=== PATIENT | male | born 1965 | race Caucasian/White ===

== ENCOUNTER 2017-09-04 10:28 | Emergency (ER) | payer OTHER, SELFPAY | END 2017-09-04 15:59 | disposition home or self-care (01) | PROVIDERS: Emergency Provider Emergency Medicine; Family Provider Family Medicine; Visit Provider Emergency Medicine | DX: R00.9 Unspecified abnormalities of heart beat (principal); T73.3XXA Exhaustion due to excessive exertion, initial encounter; Z95.810 Presence of automatic (implantable) cardiac defibrillator; Y93.79 Activity, other specified sports and athletics | CPT/HCPCS: 71020; 80053; 82550; 82553; 84484; 85025; 93005; 93041; 99284 ==

== ENCOUNTER → 2017-10-18 08:36 | Outpatient (CLI) | payer OTHER, MEDICAID, SELFPAY ==
--- NOTE | 2017-10-18 | CA_ITS ---
PROCEDURE: 2-D M-mode and color Doppler study INDICATIONS FOR THE TEST: Chest pain COPD Heart Murmur+ Tobacco Smokingex Palpitations+ Fatigue Syncope Edema Hypertension+Diabetes Mellitus Rheumatic Fever SOB DAMIAN+Obesity+Hyperlipidemia Family History HD Additional History pacer/defib, dizziness, hx of 20-25% EF 07/2017, Definity contrast utilized PATIENT INFORMATION HEIGHT: 71 WEIGHT: 270 GENDER: Male B/P: 156/98 2-D/M-MODE INTERPRETATION: 2-D MEASUREMENTS OBSERVED VALUES IN CMS Right Ventricular Dimension (RVDd) 2.1 Interventricular Septum (Thickness)(IVsd) 1.0 Left Ventricular Internal Dimensions(LVIDd) 6.1 Left Ventricular Posterior Wall (Thickness)(LVPWd) 1.0 Aortic Root 3.0 Aortic Cusp Separation 2.0 Left Atrial Dimensions (LAD) 3.7 2D 1. Left atrium is mildly enlarged, left ventricle is mildly dilated, there is severely reduced left ventricular systolic function, visually estimated ejection fraction is 25%, there is marked hypo to akinesis involving the mid to distal septum, anterior, anteroapical and apical wall. 2. The right atrium and right ventricle are relatively normal size and function, there is a catheter noted in the right ventricle which is likely an ICD lead. 3. The aortic valve is minimally thickened and fibrosed. 4. The mitral and tricuspid valve leaflets are minimally thickened. 5. The pulmonic valve is poorly visualized. 6. No significant pericardial effusion noted. DOPPLER INTERROGATION: Doppler interrogation of the aortic, mitral and tricuspid valvular presence of mild mitral and tricuspid regurgitation, tricuspid and enteric velocity insufficient for calculation of the right ventricular systolic pressure, diastolic parameters are inconclusive. CONCLUSION: 1. Mildly enlarged left atrium, mildly dilated left ventricle, severely reduced left ventricular systolic function, visually estimated ejection fraction of 25% with multiple segmental wall motion abnormality described above, Definity contrast ordered to delineate surfaces. 2. Mild mitral and tricuspid regurgitation 3. No significant pericardial effusion noted.
== END ==
PROVIDERS: PCP Family Medicine; Visit Provider Internal Medicine
DX: I25.10 Atherosclerotic heart disease of native coronary artery without angina pectoris (principal); I10 Essential (primary) hypertension; E78.5 Hyperlipidemia, unspecified; G47.33 Obstructive sleep apnea (adult) (pediatric); Z95.810 Presence of automatic (implantable) cardiac defibrillator
CPT/HCPCS: 93306; Q9957

== ENCOUNTER 2017-10-19 11:16 | Emergency (ER) | payer OTHER, MEDICAID, SELFPAY ==
[2017-10-19 11:17] VITALS: BP 146/85; PULSE 61; RESP 18; TEMP 36.7; O2SAT 99; BMI 37.6
--- NOTE | 2017-10-19 11:22 | XR_ITS ---
XR chest 2V HISTORY: ITS.REASON: chest pain ORDERING PHYSICIAN: Eleno Medina MD PATIENT AGE: 52 years COMPARISON: 09/04/2017 FINDINGS: The cardiomediastinal silhouette and pulmonary vascularity are within normal limits. Cardiac pacemaker device is present from left subclavian approach The lungs are clear without infiltrates, suspicious nodules, or pleural effusions. No acute bony abnormalities. IMPRESSION: No change with no acute finding
[2017-10-19 11:35] LABS: Basophils # 0.1 K/mm3 (0-0.2); Basophils % 0.6 % (0.1-2.0); Eosinophils # 0.2 K/mm3 (0.0-0.4); Eosinophils % 1.8 % (0.1-12.0); Hematocrit 45.1 % (42.0-52.0); Hemoglobin 15.1 g/dL (14.1-18.0); Lymphocytes # 3.2 K/mm3 (0.7-4.5); Lymphocytes % 39.6 K/mm3 (10-50); Mean Corpuscular HGB Conc 33.5 g/dL (31.8-35.4); Mean Corpuscular Hemoglobin 30.6 pg (27.0-31.2); Mean Corpuscular Volume 91.3 fl (80-94); Mean Platelet Volume 8.3 fl (7.4-10.4); Monocytes # 0.4 K/mm3 (0.1-1.0); Monocytes % 4.4 % (1.7-9.3); Neutrophils # 4.3 K/mm3 (1.8-7.8); Neutrophils % 53.6 % (37.0-80.0); Platelet Count 213 K/mm3 (142-424); Red Blood Count 4.93 M/mm3 (4.60-6.20); Red Cell Distribution Width 12.6 % (11.5-17.5); White Blood Count 8.1 K/mm3 (4.8-10.8)
--- NOTE | 2017-10-19 11:52 | [facility].EDCP ---
ED Disposition Clinical Impression: CAD (coronary artery disease), Atypical chest pain, Numbness, Encephalomalacia on imaging study Disposition: Home, Self-Care Condition on Discharge: Good Additional Instructions: As I discussed with Dr Byers and later on the patient: 1- Go immediately to Dr Byers's office for re evalution. 2- continue your current medication regimen especailly the asa. 3- follow up with Dr Turner as scheduled. 4- return if needed. Referrals: Zainab Byers MD [Primary Care Provider] - - Critical Care Critical Care Time: No Attestation: On 10/19/17, the high probability of a clinically significant, sudden or life threatening deterioration of the following system(s) required my full and direct attention, intervention and personal management. The time I documented below is in addition to time spent performing reported procedures but includes the following listed in this critical care notation. Medical Decision Making - Medical Records Medical records reviewed: Yes: I reviewed the patient's medical records. Vital Signs: 10/19/17 11:17 10/19/17 12:47 Temperature 98.1 F Temperature Source Oral Pulse Rate [Right Brachial] 61 106 H Respiratory Rate 18 18 Blood Pressure [Right Arm] 146/85 126/85 Blood Pressure Mean [Right Arm] 105 98 Blood Pressure Source [Right Arm] Automatic Cuff Automatic Cuff Blood Pressure Position [Right Arm] Sitting Sitting 02 Sat by Pulse Oximetry 99 96 Oxygen Delivery Method Room Air Room Air - Lab Data Lab Results 10/19/17 11:25: WBC 8.1, RBC 4.93, Hgb 15.1, Hct 45.1, MCV 91.3, MCH 30.6, MCHC 33.5, RDW 12.6, Plt Count 213, MPV 8.3, Neut % (Auto) 53.6, Lymph % (Auto) 39.6, [place] % (Auto) 4.4, Eos % (Auto) 1.8, Baso % (Auto) 0.6, Neut # (Auto) 4.3, Lymph # (Auto) 3.2, [place] # (Auto) 0.4, Eos # (Auto) 0.2, Baso # (Auto) 0.1 10/19/17 11:25: Sodium 140, Potassium 4.0, Chloride 103, Carbon Dioxide 29, Anion Gap 12.0, BUN 9, Creatinine 0.92, Estimated Creat Clear 166, Estimated GFR 87, Est GFR ( Amer) 105, Glucose 114 H, Calcium 8.9, Total Bilirubin 0.5, AST 10 L, ALT 26, Alkaline Phosphatase 64, Total Creatine Kinase 108, CK-MB (CK-2) 0.8, CK-MB (CK-2) Rel Index 0.7, Troponin I < 0.02, Total Protein 7.2, Albumin 3.9, Globulin 3.3 H, Albumin/Globulin Ratio 1.2 10/19/17 11:25: D-Dimer < 100 10/19/17 11:25: B-Natriuretic Peptide 38 10/19/17 11:51: Specimen Source R radial, O2 % 2lpm, ABG pH 7.42, ABG pCO2 40.0, ABG pO2 77.3 L, ABG HCO3 25.4, ABG Total CO2 26.6, ABG O2 Saturation 96, ABG Base Excess 1.0, Red Test Acceptable 10/19/17 13:15: Troponin I < 0.02 Result diagrams: 10/19/17 11:25 10/19/17 11:25 - Radiology Data #1 Image(s): Chest Image Reviewed: Yes I have reviewed radiologist's interpretation Preliminary Findings: Normal/NAD MPRESSION: No change with no acute finding - ECG Data Tracing #1 Paced rhythm 60/minutes. ECG initial impression date: 10/19/17 ECG initial impression time: 11:55 - Marcelo Inquiry Pt receiving controlled substance: No Marcelo was queried for this patient: No Medical Decision Making Narrative: After reviewing the patient EKG labs and chest x-ray report. The patient was ruled out for [place] by 2 negative troponins, ruled out for PE by negative dimer. His CT report and gave him a copy to follow-up with Dr. byers attempted to contact Dr. Turner who was scrubbed in. The patient reported that the numbness feeling is going away, his neurological exam remained unchanged, I called his primary care physician Dr. byers who advised that the patient to be discharged and to go immediately to the office for evaluation by him. This with the patient his and his family and they were fine with this plan. He is to continue his daily aspirin. I informed the patient to return if the sx return or if needed he he verbalized understanding with the DC plan. Chest Pain HPI - General Chief Complaint:
--- NOTE | 2017-10-19 11:55 | ED_ITS ---
ED Disposition Clinical Impression: CAD (coronary artery disease), Atypical chest pain, Numbness, Encephalomalacia on imaging study Disposition: Home, Self-Care Condition on Discharge: Good Additional Instructions: As I discussed with Dr Byers and later on the patient: 1- Go immediately to Dr Byers's office for re evalution. 2- continue your current medication regimen especailly the asa. 3- follow up with Dr Turner as scheduled. 4- return if needed. Referrals: Zainab Byers MD [Primary Care Provider] - - Critical Care Critical Care Time: No Attestation: On 10/19/17, the high probability of a clinically significant, sudden or life threatening deterioration of the following system(s) required my full and direct attention, intervention and personal management. The time I documented below is in addition to time spent performing reported procedures but includes the following listed in this critical care notation. Medical Decision Making - Medical Records Medical records reviewed: Yes: I reviewed the patient's medical records. Vital Signs: 10/19/17 11:17 10/19/17 12:47 Temperature 98.1 F Temperature Source Oral Pulse Rate [Right Brachial] 61 106 H Respiratory Rate 18 18 Blood Pressure [Right Arm] 146/85 126/85 Blood Pressure Mean [Right Arm] 105 98 Blood Pressure Source [Right Arm] Automatic Cuff Automatic Cuff Blood Pressure Position [Right Arm] Sitting Sitting 02 Sat by Pulse Oximetry 99 96 Oxygen Delivery Method Room Air Room Air - Lab Data Lab Results 10/19/17 11:25: WBC 8.1, RBC 4.93, Hgb 15.1, Hct 45.1, MCV 91.3, MCH 30.6, MCHC 33.5, RDW 12.6, Plt Count 213, MPV 8.3, Neut % (Auto) 53.6, Lymph % (Auto) 39.6 , Hall % (Auto) 4.4, Eos % (Auto) 1.8, Baso % (Auto) 0.6, Neut # (Auto) 4.3, Lymph # (Auto) 3.2, [place] # (Auto) 0.4, Eos # (Auto) 0.2, Baso # (Auto) 0.1 10/19/17 11:25: Sodium 140, Potassium 4.0, Chloride 103, Carbon Dioxide 29, Anion Gap 12.0, BUN 9, Creatinine 0.92, Estimated Creat Clear 166, Estimated GFR 87, Est GFR ( Amer) 105, Glucose 114 H, Calcium 8.9, Total Bilirubin 0.5, AST 10 L, ALT 26, Alkaline Phosphatase 64, Total Creatine Kinase 108, CK- MB (CK-2) 0.8, CK-MB (CK-2) Rel Index 0.7, Troponin I < 0.02, Total Protein 7.2 , Albumin 3.9, Globulin 3.3 H, Albumin/Globulin Ratio 1.2 10/19/17 11:25: D-Dimer < 100 10/19/17 11:25: B-Natriuretic Peptide 38 10/19/17 11:51: Specimen Source R radial, O2 % 2lpm, ABG pH 7.42, ABG pCO2 40.0 , ABG pO2 77.3 L, ABG HCO3 25.4, ABG Total CO2 26.6, ABG O2 Saturation 96, ABG Base Excess 1.0, Red Test Acceptable 10/19/17 13:15: Troponin I < 0.02 Result diagrams: 10/19/17 11:25 10/19/17 11:25 - Radiology Data #1 Image(s): Chest Image Reviewed: Yes I have reviewed radiologist's interpretation Preliminary Findings: Normal/NAD MPRESSION: No change with no acute finding - ECG Data Tracing #1 Paced rhythm 60/minutes. ECG initial impression date: 10/19/17 ECG initial impression time: 11:55 - Marcelo Inquiry Pt receiving controlled substance: No Marcelo was queried for this patient: No Medical Decision Making Narrative: After reviewing the patient EKG labs and chest x-ray report. The patient was ruled out for [place] by 2 negative troponins, ruled out for PE by negative dimer. His CT report and gave him a copy to follow-up with Dr. byers attempted to contact Dr. Turner who was scrubbed in. The patient reported derek
[2017-10-19 12:02] LABS: Alanine Aminotransferase 26 U/L (12-78); Albumin Level 3.9 gm/dL (3.4-5.0); Albumin/Globulin Ratio 1.2 (1.1-1.8); Alkaline Phosphatase 64 U/L (46-116); Aspartate Amino Transferase 10 U/L (15-37); Bilirubin,Total 0.5 mg/dL (0.2-1.0); Blood Urea Nitrogen 9 mg/dL (7-18); CKMB Relative Index 0.7 U/L (0-4.0); Calcium 8.9 mg/dL (8.5-10.1); Carbon Dioxide 29 mmol/L (21.0-32.0); Chloride 103 mmol/L (98-107); Creatine Kinase 108 U/L (39-308); Creatine Kinase MB 0.8 mg/ml (0.0-3.6); Creatinine Clearance Estimated 166 mL/min (0-300); Creatinine,Serum 0.92 mg/dL (0.70-1.30); Estimated Glomerular Filt Rate 87 ml/min (>60); GFR (African American) 105 ML/MIN (>60); Globulin 3.3 gm/dl (1.3-3.2); Glucose 114 mg/dL (74-106); Sodium 140 mmol/L (136-145); Total Protein,Serum 7.2 gm/dL (6.4-8.2); Troponin I < 0.02 ng/ml (0.00-0.06)
[2017-10-19 12:25] LABS: ABG HCO3 25.4 mmhg (22.0-26.0); ABG Oxygen Saturation 96 % (90-100); ABG PH 7.42 mmol/L (7.35-7.45); ABG PO2 77.3 mmhg (80-100); ABG TCO2 26.6 mmhg (23-27)
[2017-10-19 12:26] LABS: Allen's Test ACCEPTABLE; Oxygen 2LPM %; Source R RADIAL
[2017-10-19 12:47] VITALS: BP 126/85; PULSE 106; RESP 18; O2SAT 96
--- NOTE | 2017-10-19 12:58 | CT_ITS ---
CT head/brain wo con HISTORY: Dizziness and left-sided numbness ITS.REASON: left sided numbness. ORDERING PHYSICIAN: Eleno Medina MD PATIENT AGE: 52 years COMPARISON: None TECHNIQUE: Axial images obtained without contrast. Brain and bone windows reviewed. FINDINGS: No midline shift, mass effect, intracranial hemorrhage, hydrocephalus, or extra-axial fluid collection is evident. There is decreased attenuation in the left occipital lobe consistent with encephalomalacia changes. The calvarium has an unremarkable appearance. Small amount fluid is present in the left mastoid sinus. No sinus air-fluid levels.. IMPRESSION: 1. No acute finding. 2. Encephalomalacia change in the left occipital lobe.
[2017-10-19 12:59] LABS: D-Dimer < 100 (0-400)
[2017-10-19 13:34] LABS: Troponin I < 0.02 ng/ml (0.00-0.06)
[2017-10-19 15:05] VITALS: BP 109/66; PULSE 60; RESP 20; TEMP 36.7; O2SAT 97
== END 2017-10-19 15:05 | disposition home or self-care (01) ==
PROVIDERS: Emergency Provider Emergency Medicine; Family Provider Family Medicine; PCP Family Medicine
DX: R07.9 Chest pain, unspecified (principal); I25.10 Atherosclerotic heart disease of native coronary artery without angina pectoris; R20.0 Anesthesia of skin; E78.5 Hyperlipidemia, unspecified; I10 Essential (primary) hypertension; Z87.891 Personal history of nicotine dependence
CPT/HCPCS: 70450; 71046; 80053; 82550; 82553; 82803; 83880; 84484; 85025; 85378; 93005; 93041; 99284

== ENCOUNTER → 2017-12-25 08:11 | Outpatient (CLI) | payer OTHER, MEDICAID, SELFPAY ==
[2017-12-25 08:51] LABS: Basophils % 0.7 % (0.1-2.0); Eosinophils # 0.2 K/mm3 (0.0-0.4); Eosinophils % 2.6 % (0.1-12.0); Hematocrit 44.3 % (42.0-52.0); Lymphocytes % 31.9 K/mm3 (10-50); Mean Corpuscular HGB Conc 33.8 g/dL (31.8-35.4); Mean Corpuscular Hemoglobin 31.2 pg (27.0-31.2); Mean Corpuscular Volume 92.5 fl (80-94); Monocytes # 0.3 K/mm3 (0.1-1.0); Monocytes % 4.3 % (1.7-9.3); Neutrophils # 3.7 K/mm3 (1.8-7.8); Neutrophils % 60.4 % (37.0-80.0); Platelet Count 222 K/mm3 (142-424); Red Blood Count 4.79 M/mm3 (4.60-6.20); Red Cell Distribution Width 12.9 % (11.5-17.5); White Blood Count 6.2 K/mm3 (4.8-10.8)
[2017-12-25 09:52] LABS: Alanine Aminotransferase 28 U/L (12-78); Albumin Level 3.7 gm/dL (3.4-5.0); Albumin/Globulin Ratio 1.2 (1.1-1.8); Alkaline Phosphatase 62 U/L (46-116); Anion Gap 9.5 mEq/L (5-15); Aspartate Amino Transferase 16 U/L (15-37); Bilirubin,Total 0.4 mg/dL (0.2-1.0); Blood Urea Nitrogen 9 mg/dL (7-18); Calcium 9.4 mg/dL (8.5-10.1); Carbon Dioxide 31 mmol/L (21.0-32.0); Chloride 107 mmol/L (98-107); Chol/HDL Ratio 6.4 (1-3.5); Cholesterol 274 mg/dL (140-200); Creatinine,Serum 0.94 mg/dL (0.70-1.30); Estimated Glomerular Filt Rate 85 ml/min (>60); GFR (African American) 103 ML/MIN (>60); Glucose 120 mg/dL (74-106); HDL Cholesterol 43 mg/dL (27-67); LDL Cholesterol 192 mg/dL (0-130); Potassium 4.5 mmoL/L (3.5-5.1); Prostate Specific Ag Screen 1.1 ng/mL (0.0-4.0); Sodium 143 mmol/L (136-145); Thyroid Stimulating Hormone 4.16 uIU/ml (0.358-3.740); Total Protein,Serum 6.7 gm/dL (6.4-8.2); Triglycerides 194 mg/dL (30-200); VLDL Cholesterol 39 mg/dL (0-40)
[2017-12-28 06:03] LABS: Vitamin D 25 Hydroxy 13.6 ng/mL (30.0-100.0)
[2017-12-28 06:04] LABS: Vitamin B12 354 pg/mL (232-1245)
== END ==
PROVIDERS: PCP Physician Assistant; Visit Provider Physician Assistant
DX: R20.9 Unspecified disturbances of skin sensation (principal); R63.5 Abnormal weight gain; E78.2 Mixed hyperlipidemia; E55.9 Vitamin D deficiency, unspecified; Z12.5 Encounter for screening for malignant neoplasm of prostate
CPT/HCPCS: 36415; 80053; 80061; 82607; 82652; 84443; 85025; G0103

== ENCOUNTER → 2018-01-10 08:27 | Outpatient (POV) | payer OTHER, MEDICAID, SELFPAY | PROVIDERS: Visit Provider Nurse Practitioner Acute Care | DX: Z00.00 Encounter for general adult medical examination without abnormal findings (principal) ==

== ENCOUNTER → 2018-03-05 07:52 | Outpatient (CLI) | payer OTHER, MEDICAID, SELFPAY ==
[2018-03-05 09:09] LABS: Hemoglobin A1C 5.4 % (0.0-7.0)
[2018-03-05 09:54] LABS: Chol/HDL Ratio 4.6 (1-3.5); Cholesterol 187 mg/dL (140-200); Free T4 (Free Thyroxine) 1.02 ng/dl (0.76-1.46); HDL Cholesterol 41 mg/dL (27-67); LDL Cholesterol 123 mg/dL (0-130); Thyroid Stimulating Hormone 2.71 uIU/ml (0.358-3.740); Triglycerides 117 mg/dL (30-200); VLDL Cholesterol 23 mg/dL (0-40)
[2018-03-06 18:30] LABS: Vitamin D 25 Hydroxy 34.8 ng/mL (30.0-100.0)
== END ==
PROVIDERS: Visit Provider Physician Assistant
DX: R73.01 Impaired fasting glucose (principal); E03.9 Hypothyroidism, unspecified; E55.9 Vitamin D deficiency, unspecified; E78.2 Mixed hyperlipidemia
CPT/HCPCS: 36415; 80061; 82652; 83036; 84439; 84443

== ENCOUNTER → 2018-09-20 08:55 | Outpatient (CLI) | payer OTHER, MEDICAID, SELFPAY | PROVIDERS: PCP Family Medicine; Visit Provider Internal Medicine Cardiovascular Disease | DX: E78.5 Hyperlipidemia, unspecified (principal); I10 Essential (primary) hypertension; I25.10 Atherosclerotic heart disease of native coronary artery without angina pectoris; I25.5 Ischemic cardiomyopathy; Z95.810 Presence of automatic (implantable) cardiac defibrillator | CPT/HCPCS: 93017 ==

== ENCOUNTER 2019-09-03 21:35 | Observation (INO) ==
--- NOTE | 2019-09-03 21:47 | Emergency Department Note ---
ED Disposition Clinical Impression: Arrhythmia Disposition: Admitted as Observation Condition on Discharge: Good - Critical Care Critical Care Time: No Attestation: On , the high probability of a clinically significant, sudden or life threatening deterioration of the following system(s) required my full and direct attention, intervention and personal management. The time I documented below is in addition to time spent performing reported procedures but includes the following listed in this critical care notation. Medical Decision Making - Marcelo Inquiry Pt receiving controlled substance: No Vital Signs: 09/03/19 21:43 09/04/19 00:40 09/04/19 01:14 Temperature 98.3 F 98.3 F Temperature Source Oral Oral Pulse Rate 88 Pulse Rate [Right] 110 H 93 H Respiratory Rate 18 18 16 Blood Pressure 112/72 Blood Pressure [Right Arm] 134/80 109/71 L Blood Pressure Mean [Right Arm] 98 83 Blood Pressure Source [Right Arm] Automatic Cuff Automatic Cuff Blood Pressure Position [Right Arm] Sitting Sitting 02 Sat by Pulse Oximetry 99 97 Oxygen Delivery Method Room Air Room Air Room Air - Lab Data Lab Results 09/03/19 22:35: WBC 8.2, RBC 4.83, Hgb 14.5, Hct 45.1, MCV 93.3, MCH 29.9, MCHC 32.0, RDW 14.0, Plt Count 225, MPV 8.2, Neut % (Auto) 58.3, Lymph % (Auto) 33.0, [place] % (Auto) 4.8, Eos % (Auto) 2.9, Baso % (Auto) 1.0, Neut # (Auto) 4.8, Lymph # (Auto) 2.7, [place] # (Auto) 0.4, Eos # (Auto) 0.2, Baso # (Auto) 0.1 09/03/19 22:35: Sodium 143, Potassium 3.4 L, Chloride 106, Carbon Dioxide 26, Anion Gap 14.4, BUN 10, Creatinine 1.03, Estimated Creat Clear 151, Estimated GFR 76, Est GFR ( Amer) 92, Glucose 161 H, Calcium 8.7, Troponin I < 0.02 09/03/19 22:35: D-Dimer < 100 09/03/19 22:35: TSH 6.18 H D, Free T4 Index 3.5 L, Thyroxine (T4) 10.5, T3 Uptake 33 Result diagrams: 09/03/19 22:35 09/03/19 22:35 Orders (Tests/Meds): ED MEDICATIONS Generic Name Dose Route Start Last Admin Trade Name Freq PRN Reason Stop Dose Admin Aspirin 81 mg 09/04/19 09:00 Aspirin 81mg Enteric Coated Tablet PO 10/04/19 08:59 DAILY RICK Atorvastatin Calcium 40 mg 09/04/19 09:00 Lipitor 40mg Tablet PO 10/04/19 08:59 DAILY RICK Carvedilol 3.125 mg 09/04/19 09:00 Coreg 3.125mg Tablet PO 10/04/19 08:59 BID RICK Furosemide 40 mg 09/04/19 09:00 Lasix 40mg Tablet PO 10/04/19 08:59 DAILY RICK Levothyroxine Sodium 25,000 mcg 09/04/19 09:00 Synthroid 25mcg (0.025mg) Tablet PO 10/04/19 08:59 DAILY RICK Potassium Chloride 10 meq 09/04/19 09:00 Klor-Con 10meq Tablet PO 10/04/19 08:59 DAILY RICK Sacubitril/Valsartan 1 each 09/04/19 09:00 Entresto 24/26mg Tablet PO 10/04/19 08:59 BID RICK Discontinued Medications Generic Name Dose Route Start Last Admin Trade Name Freq PRN Reason Stop Dose Admin Non-Formulary Medication 1 tab 09/04/19 09:00 Sacubitril/Valsartan [Entresto 49 Mg-51 Mg Tablet] PO 10/04/19 08:59 BID RICK ORDERS Category Date Time Status Consult to Physician [CONS] Routine Cons 09/04/19 01:25 Ordered Chest XR 2 view (NOT portable) [XR chest 2V] Stat Exams 09/03/19 21:50 Taken - Radiology Data #1 Image(s): Chest Image Reviewed: Yes I reviewed the patient's radiology image Preliminary Findings: Normal/NAD - ECG Data Tracing #1 EKG interpreted by Frederick Mejia MD: Rhythm: sinus Rate: 99 [place]: Left Ectopy: none Conduction: normal ST Segment Changes: none T Wave Changes: none Q Waves: Anterior septal Poor R wave progression Prior electrocardiagrams reviewed. No change from prior tracings. - Physician Consults Physician Consulted: Yue Time: 23:40 Reason -: Cardiology Eval/Care Comment/Response: Feels that most likely the patient had a ventricular arrhythmia that he was paced out of. Recommends admit for observation overnight on telemetry and they will get device interrogated in the morning Additional Consult: Rita General Adult HPI - General Stated complaint: chest/head pain Time Seen by Provider: 09/03/19 21:48 - History of Present Illness HPI narrative: States that about 40 minutes ago he was sitting at rest when he felt a "boom" in his chest that went up his neck and into his head. Only lasted a second. He t hen felt his heart race for about 3 to 4 minutes. Associated with shortness of breath. Symptoms resolved, but then on the way here he also got short of breath. Has not had the symptoms before in the past. He has an AICD and has previously had discharges, and this did not feel like an AICD discharge. No leg pain or swelling. No recent hospitalizations or surgeries. He is not currently having any discomfort or palpitations. - Related Data Home Medications Medication Instructions Recorded Confirmed aspirin 81 mg tablet,delayed 81 mg PO QDAY 09/07/17 09/03/19 release Atorvastatin Calcium [Atorvastatin 40 mg PO DAILY 01/11/18 09/03/19 40mg Tab] Levothyroxine Sodium 25 mg PO DAILY 01/11/18 09/03/19 [Levothyroxine 25mcg (0.025mg) Tab] cholecalciferol (vitamin D3) 125 5,000 unit PO DAILY 06/17/18 09/03/19 mcg (5,000 unit) capsule sacubitril 49 mg-valsartan 51 mg 1 tab PO BID 03/17/19 09/03/19 tablet Furosemide [Lasix 40mg tab] 40 mg PO DAILY 09/03/19 09/03/19 Potassium Chloride 10 meq PO DAILY 09/03/19 09/03/19 Allergies Allergy/AdvReac Type Severity Reaction Status Date / Time codeine [CODEINE] Allergy Intermediate Verified 03/17/19 10:15 [facility] History - Hepatitis A Screen Attestation statement:: This patient has been screened for Hepatitis A risk factors. I have reviewed the patient's past medical history: Yes Medical History: Reports:: Coronary Artery Disease, Hyperlipidemia, Hypertension, Myocardial Infarction Denies:: Cancer, Diabetes Mellitus Type 1, Diabetes Mellitus Type 2, Internal Pacemaker, Lung Disease, MRSA, Seizures Other Medical History: Denies: Blood Transfusion Reaction Comment: Pacemaker AICD Laterality Cases: Left: Arthroscopy Knee Other Surgeries: Yes: Cardiac Catheterization, Colonoscopy, Hernia Repair, Oth er. No: Pacemaker Amputation: No Fractures: No - Social History Smoking Status: Former smoker Alcohol Intake: current Alcohol Intake Frequency:: holidays/special occasions only Substance Use Type: denies use Occupational Status: employed Family Hx:: Coronary Artery Disease, Heart Attack, Hypertension, Hyperlipidemia ROS Obtained: Yes All systems reviewed & no additional complaints - Constitutional Constitutional: Denies fever(s) - Cardiovascular Cardiovascular: Reports chest pain, Reports rapid heart rate - Respiratory Respiratory: No cough, Yes dyspnea, No coughing up blood - Gastrointestinal Gastrointestingal: Denies: abdominal pain, vomiting Physical Exam - General General appearance: alert, in no apparent distress - Head Head exam: atraumatic, normocephalic - Eye Eye exam: Present: normal appearance, EOMI - ENT ENT exam: Present: mucous membranes moist - Neck Neck exam: Present: normal inspection, trachea midline - Chest Chest inspection: Present: normal inspection, symmetric chest wall rise - Respiratory Respiratory exam: Present: normal lung sounds bilaterally. Absent: respiratory distress - Cardiovascular Cardiovascular exam: Present: regular rate, normal rhythm, normal heart sounds - Abdominal Exam Abdominal exam: Present: soft, normal bowel sounds. Absent: distention, tenderness - Extremities Exam Extremities exam: Present: normal inspection, other (Normal peripheral pulses). Absent: tenderness, pedal edema - Neurological Exam Neurological exam: Present: alert, oriented X3 - Psychiatric Psychiatric exam: Present: normal affect, normal mood - Skin Skin exam: Present: warm, dry
[2019-09-03 22:49] LABS: Basophils # 0.1 K/mm3 (0-0.2); Eosinophils # 0.2 K/mm3 (0.0-0.4); Eosinophils % 2.9 % (0.1-12.0); Hematocrit 45.1 % (42.0-52.0); Hemoglobin 14.5 g/dL (14.1-18.0); Lymphocytes # 2.7 K/mm3 (0.7-4.5); Mean Corpuscular Volume 93.3 fl (80-94); Mean Platelet Volume 8.2 fl (7.4-10.4); Monocytes # 0.4 K/mm3 (0.1-1.0); Monocytes % 4.8 % (1.7-9.3); Neutrophils # 4.8 K/mm3 (1.8-7.8); Neutrophils % 58.3 % (37.0-80.0); Platelet Count 225 K/mm3 (142-424); Red Blood Count 4.83 M/mm3 (4.60-6.20); White Blood Count 8.2 K/mm3 (4.8-10.8)
[2019-09-03 23:02] LABS: Anion Gap 14.4 mEq/L (5-15); Blood Urea Nitrogen 10 mg/dL (7-18); Calcium 8.7 mg/dL (8.5-10.1); Carbon Dioxide 26 mmol/L (21.0-32.0); Chloride 106 mmol/L (98-107); Glucose 161 mg/dL (74-106); Sodium 143 mmol/L (136-145)
[2019-09-04 00:09] LABS: Free Thyroxine Index 3.5 ug/dL (5.93-13.13); Thyroid Stimulating Hormone 6.18 uIU/ml (0.358-3.740)
--- NOTE | 2019-09-04 07:25 | Consult Report ---
History of Present Illness Consult date: 09/04/19 Requesting physician: Ji Salinas Consult reason: chest pain Chief complaint: chest pain Additional Medical History:: 1. Ischemic cardiomyopathy A. Left heart catheterization, 2016, medical therapy recommended. Proximal LAD occlusion with apical hypokinesis and EF of 25%. B. Routine Cesar protocol stress test, 09/2018, no significant arrhythmias, patient exercised for 6 minutes but did not achieve target heart rate due to medical therapy. No evidence of ischemia. 2. [employer] AICD implanted July 2017 3. Hypertension A. Echo, 10/2017, 1. Left atrium is mildly enlarged, left ventricle is mildly dilated, there is severely reduced left ventricular systolic function, visually estimated ejection fraction is 25%, there is marked hypo to akinesis involving the mid to distal septum, anterior, anteroapical and apical wall. 2. The right atrium and right ventricle are relatively normal size and function, there is a catheter noted in the right ventricle which is likely an ICD lead. 3. The aortic valve is minimally thickened and fibrosed. 4. The mitral and tricuspid valve leaflets are minimally thickened. 5. The pulmonic valve is poorly visualized. 6. No significant pericardial effusion noted. DOPPLER INTERROGATION: Doppler interrogation of the aortic, mitral and tricuspid valvular presence of mild mitral and tricuspid regurgitation, tricuspid and enteric velocity insufficient for calculation of the right ventricular systolic pressure, diastolic parameters are inconclusive. CONCLUSION: 1. Mildly enlarged left atrium, mildly dilated left ventricle, severely reduced left ventricular systolic function, visually estimated ejection fraction of 25% with multiple segmental wall motion abnormality described above, Definity contrast ordered to delineate surfaces. 2. Mild mitral and tricuspid regurgitation 3. No significant pericardial effusion noted 4. Hyperlipidemia 5. Obesity 6. Hypothyroidism, on replacement therapy History of present illness: States that about 40 minutes ago he was sitting at rest when he felt a "boom" in his chest that went up his neck and into his head. Only lasted a second. He then felt his heart race for about 3 to 4 minutes. Associated with shortness of breath. Symptoms resolved, but then on the way here he also got short of breath. Has not had the symptoms before in the past. He has an AICD and has previously had discharges, and this did not feel like an AICD discharge. No leg pain or swelling. No recent hospitalizations or surgeries. He is not currently having any discomfort or palpitations. The above per Dr. Mejia Patient relates recent medication changes including discontinuing carvedilol in favor of Entresto for his cardiomyopathy. ICD interrogation today shows 2 episodes of brief ventricular tachycardia which was aborted with anti-tachycardia pacing. These occurred at about 10:00 last evening and do not correlate with the time that the patient states he felt the boom in his chest at around 8:00. No episodes of tach arrhythmias noted around 8:00. [facility] History Medical History: Reports:: Coronary Artery Disease, Hyperlipidemia, Hypertension, Myocardial Infarction, Palpitations Denies:: Cancer, Diabetes Mellitus Type 1, Diabetes Mellitus Type 2, Internal Pacemaker, Lung Disease, MRSA, Seizures *Have you ever received a pneumonia vaccine?: No *Have you received a flu vaccine this season?: No Other Medical History: Denies: Blood Transfusion Reaction Laterality Cases: Left: Arthroscopy Knee Other Surgeries: Yes: Cardiac Catheterization, Colonoscopy, Hernia Repair, Other. No: Pacemaker Amputation: No Fractures: No - *Social History Educational Level: Completed GED/General Educational Development Smoking Status: Former smoker Tobacco Type: cigarettes # Packs/Day (cigarettes): 1 Smoking End Date: 1917 Alcohol Intake: former Alcohol Intake Frequency:: holidays/special occasions only Substance Use Type: denies use *Occupational Status:: employed Housing: house Household Members: spouse, children *Travel in the last 8 weeks: None Family Hx:: Heart Attack, Hyperlipidemia, Stroke Meds Home Medications Medication Instructions Recorded Confirmed Type aspirin 81 mg tablet,delayed 81 mg PO QDAY 09/07/17 09/03/19 History release Atorvastatin Calcium [Atorvastatin 40 mg PO DAILY 01/11/18 09/03/19 History 40mg Tab] Levothyroxine Sodium 25 mg PO DAILY 01/11/18 09/03/19 History [Levothyroxine 25mcg (0.025mg) Tab] cholecalciferol (vitamin D3) 125 5,000 unit PO DAILY 06/17/18 09/03/19 History mcg (5,000 unit) capsule sacubitril 49 mg-valsartan 51 mg 1 tab PO BID 03/17/19 09/03/19 History tablet Furosemide [Lasix 40mg tab] 40 mg PO DAILY 09/03/19 09/03/19 History Potassium Chloride 10 meq PO DAILY 09/03/19 09/03/19 History Allergies Allergy/AdvReac Type Severity Reaction Status Date / Time codeine [CODEINE] Allergy Intermediate Verified 03/17/19 10:15 Review of Systems - Review of Systems Review of systems:: pertinent systems reviewed and negative unless documented below - *Cardiovascular Reports chest pain, Denies shortness of breath with activity - *Respiratory Denies cough, Denies shortness of breath with activity - *Gastrointestinal Denies abdominal pain, Denies nausea, Denies vomiting - *Genitourinary Denies difficulty urinating, Denies side pain, Denies blood in urine - *Musculoskeletal Denies joint pain, Denies back pain - *Neurologic Denies headache(s), Denies fainting, Denies tingling Exam Vital signs and Labs for Last 24 Hours: Temp Pulse Resp BP Pulse Ox 97.8 F 65 18 108/69 L 97 09/04/19 04:00 09/04/19 04:00 09/04/19 04:00 09/04/19 04:00 09/04/19 04:00 Laboratory Results - last 24 hr 09/03/19 22:35: WBC 8.2, RBC 4.83, Hgb 14.5, Hct 45.1, MCV 93.3, MCH 29.9, MCHC 32.0, RDW 14.0, Plt Count 225, MPV 8.2, Neut % (Auto) 58.3, Lymph % (Auto) 33.0, [place] % (Auto) 4.8, Eos % (Auto) 2.9, Baso % (Auto) 1.0, Neut # (Auto) 4.8, Lymph # (Auto) 2.7, [place] # (Auto) 0.4, Eos # (Auto) 0.2, Baso # (Auto) 0.1 09/03/19 22:35: Sodium 143, Potassium 3.4 L, Chloride 106, Carbon Dioxide 26, Anion Gap 14.4, BUN 10, Creatinine 1.03, Estimated Creat Clear 151, Estimated GFR 76, Est GFR ( Amer) 92, Glucose 161 H, Calcium 8.7, Troponin I < 0.02 09/03/19 22:35: D-Dimer < 100 09/03/19 22:35: TSH 6.18 H D, Free T4 Index 3.5 L, Thyroxine (T4) 10.5, T3 Uptake 33 09/04/19 01:30: Troponin I < 0.02 09/04/19 04:15: Troponin I < 0.02 I & O for Last 24 hours: Intake & Output 09/01/19 09/02/19 09/03/19 09/04/19 11:59 11:59 11:59 11:59 Weight 301 lb 7 oz - *Routine HEENT Exam Head: Present: normocephalic Eye: Present: EOMI, PERRL ENT: Present: mucous membranes moist - *Routine Respiratory Exam Present: CTA bilaterally. Absent: accessory muscle use, rales, rhonchi, wheezes - *Routine Cardiovascular Exam Present: RRR. Absent: murmur, gallop, rubs - *Routine Abdominal Exam Present: soft. Absent: tenderness, distended, guarding - *Routine Extremities Exam Absent: edema, calf tenderness - *Routine Neurological Exam Present: alert, oriented X3, moving all extremities Assessment and Plan (1) Arrhythmia Current visit: Yes Status: Acute Category: Medical Code(s): I49.9 - Cardiac arrhythmia, unspecified (2) Automatic implantable cardiac defibrillator in situ Current visit: No Status: Chronic Category: Medical Code(s): Z95.810 - Presence of automatic (implantable) cardiac defibrillator (3) CAD (coronary artery disease) Current visit: No Status: Chronic Qualifiers: Coronary Disease-Associated Artery/Lesion type: [place] artery [place] vs. transplanted heart: [place] heart Associated angina: without angina Qualified Code(s): I25.10 - Atherosclerotic heart disease of [place] coronary artery without angina pectoris Category: Medical Code(s): I25.10 - Atherosclerotic heart disease of [place] coronary artery without angina pectoris (4) Hyperlipidemia Current visit: No Status: Chronic Qualifiers: Hyperlipidemia type: unspecified Qualified Code(s): E78.5 - Hyperlipidemia, unspecified Category: Medical Code(s): E78.5 - Hyperlipidemia, unspecified (5) Ischemic cardiomyopathy Current visit: No Status: Chronic Category: Medical Code(s): I25.5 - Ischemic cardiomyopathy (6) Ventricular tachycardia, non-sustained Current visit: Yes Status: Acute Category: Medical Code(s): I47.2 - Ventricular tachycardia - Assessment and plan all Dx Assessment and Plan for all problems:: 1. Suspected arrhythmia with ventricular tachycardia noted that does not correlate to the patient's symptoms. Will reduce Entresto and restart carvedilol therapy. OK for discharge home from cardiology standpoint with follow up in 1-2 wks. 2. Patient had cesar protocol stress test earlier this year with no evidence of ischemia on EKG and normal troponins this admission. Would not recommend fur ther evaluation at this time.
--- NOTE | 2019-09-04 08:48 | H&P/Discharge Summary ---
<Saida Lai - Last Filed: 09/04/19 09:05> General - General Admission date:: 09/04/19 Discharge date: 09/04/19 *Admission Date: 09/04/19 *Chief complaint: Cardiac arrhythmia with shortness of breath *History of present illness: Mr. Goel is a 54-year-old male with a history of coronary artery disease, status post acute NM with stent in 2007, hypertension, hyperlipidemia, cardiomyopathy with 30% EF on cath 2009 and 2016 EF was 20 to 25% and placement of AICD who presented to the emergency room after feeling a "boom" in his chest that went up into the neck and head. This lasted about a second. He then felt his heart race for about 3 to 4 minutes. This was associated with shortness of breath. Patient denies having any chest pain. He does not recall having any issues like this in the past. He had AICD placed 2016 and has felt discharges in the past. He did not feel that this was similar to the discharges. Case was discussed with Dr. Turner and he was admitted for further evaluation and treatment with cardiology consult and interrogation of AICD. Patient has been seen by cardiology and noted ICD interrogation showing 2 episodes of brief ventricular tachycardia which was aborted with anti- tachycardic pacing. This occurred about 10 PM last evening without correlation to the boom that he felt in his chest around 8 PM. He had no episodes of tachycardic arrhythmias around [address] [facility] History Medical History: Reports:: Arrhythmia, Atherosclerotic Heart Disease, Coronary Artery Disease, Hyperlipidemia, Hypertension, Myocardial Infarction, Palpitations Denies:: Cancer, Diabetes Mellitus Type 1, Diabetes Mellitus Type 2, Internal Pacemaker, Lung Disease, MRSA, Seizures *Have you ever received a pneumonia vaccine?: No *Have you received a flu vaccine this season?: No Other Medical History: Reports: Hypothyroidism. Denies: Blood Transfusion Reaction Laterality Cases: Left: Arthroscopy Knee Other Surgeries: Yes: Cardiac Catheterization, Colonoscopy, Coronary Stent, EGD, Hernia Repair, Other. No: Pacemaker Amputation: No Fractures: No - *Social History Educational Level: Completed GED/General Educational Development Smoking Status: Former smoker Tobacco Type: cigarettes # Packs/Day (cigarettes): 1 Smoking End Date: 1917 Alcohol Intake: former Alcohol Intake Frequency:: holidays/special occasions only Substance Use Type: denies use *Occupational Status:: employed Housing: house Household Members: spouse, children *Travel in the last 8 weeks: None Family Hx:: Heart Attack, Hyperlipidemia, Stroke Review of Systems - Constitutional Denies fever(s), Denies headache(s) - Eyes Denies change in vision - ENT Denies ear pain, Denies headache(s), Denies nasal congestion, Denies sore throat - *Cardiovascular Reports shortness of breath, Reports leg swelling, Reports rapid, pounding, or irregular heartbeat, Denies chest pain - *Respiratory Reports shortness of breath, Denies chest congestion, Denies cough - *Gastrointestinal Denies abdominal pain, Denies change in bowel habits, Denies change in stools, Denies heartburn, Denies vomiting blood, Denies loose stools, Denies black, tarry stools, Denies nausea, Denies vomiting - *Genitourinary Denies difficulty urinating - *Musculoskeletal Denies abnormal walking, Denies joint pain - *Neurologic Reports dizziness, Denies headache(s), Denies fainting, Denies tingling Exam Vital signs and Labs for Last 24 Hours: Temp Pulse Resp BP Pulse Ox 97.8 F 65 18 108/69 L 97 09/04/19 04:00 09/04/19 04:00 09/04/19 04:00 09/04/19 04:00 09/04/19 04:00 Laboratory Results - last 24 hr 09/03/19 22:35: WBC 8.2, RBC 4.83, Hgb 14.5, Hct 45.1, MCV 93.3, MCH 29.9, MCHC 32.0, RDW 14.0, Plt Count 225, MPV 8.2, Neut % (Auto) 58.3, Lymph % (Auto) 33.0, [place] % (Auto) 4.8, Eos % (Auto) 2.9, Baso % (Auto) 1.0, Neut # (Auto) 4.8, Lymph # (Auto) 2.7, [place] # (Auto) 0.4, Eos # (Auto) 0.2, Baso # (Auto) 0.1 09/03/19 22:35: Sodium 143, Potassium 3.4 L, Chloride 106, Carbon Dioxide 26, Anion Gap 14.4, BUN 10, Creatinine 1.03, Estimated Creat Clear 151, Estimated GFR 76, Est GFR ( Amer) 92, Glucose 161 H, Calcium 8.7, Troponin I < 0.02 09/03/19 22:35: D-Dimer < 100 09/03/19 22:35: TSH 6.18 H D, Free T4 Index 3.5 L, Thyroxine (T4) 10.5, T3 Uptake 33 09/04/19 01:30: Troponin I < 0.02 09/04/19 04:15: Troponin I < 0.02 I & O for Last 24 hours: Intake & Output 09/01/19 09/02/19 09/03/19 09/04/19 11:59 11:59 11:59 11:59 Weight 301 lb 7 oz - Constitutional no acute distress Comments: Sitting up in the bed eating breakfast. Appears comfortable - *Routine HEENT Exam Head: Present: normocephalic, atraumatic Eye: Present: PERRL. Absent: conjunctival icterus, scleral injection ENT: Present: mucous membranes moist, oropharynx clear - *Routine Neck Exam Present: supple. Absent: carotid bruit, lymphadenopathy, thyromegaly - *Routine Respiratory Exam Present: CTA bilaterally (Anteriorly and posteriorly) - *Routine Cardiovascular Exam Comments: Monitor showing sinus rhythm - *Routine Abdominal Exam Present: soft, normoactive bowel sounds. Absent: tenderness, distended - *Routine Extremities Exam Absent: edema, calf tenderness - *Routine Neurological Exam Present: alert, oriented X3 Hospital Course Hospital Course: Patient had no episodes of arrhythmias after admission. He had no further symptoms and denied chest pain and shortness of breath. He was awake most of the night with nursing checks and blood draws. He was seen by cardiology with plan to decrease Entresto and restart carvedilol. Due to recent negative stress test patient will not need further work-up at this time. Patient will be discharged to home in stable and satisfactory condition with medication changes and follow-up with cardiology in 1 to [address] Salinas. Results Labs on day of discharge: Labs from last 24 hours 09/04/19 09/04/19 09/03/19 04:15 01:30 22:35 WBC RBC Hgb Hct MCV MCH MCHC RDW Plt Count MPV Neut % (Auto) Lymph % (Auto) [place] % (Auto) Eos % (Auto) Baso % (Auto) Neut # (Auto) Lymph # (Auto) [place] # (Auto) Eos # (Auto) Baso # (Auto) D-Dimer Sodium Potassium Chloride Carbon Dioxide Anion Gap BUN Creatinine Estimated Creat Clear Estimated GFR Est GFR ( Amer) Glucose Calcium Troponin I < 0.02 < 0.02 TSH 6.18 H D Free T4 Index 3.5 L Thyroxine (T4) 10.5 T3 Uptake 33 09/03/19 09/03/19 09/03/19 22:35 22:35 22:35 WBC 8.2 RBC 4.83 Hgb 14.5 Hct 45.1 MCV 93.3 MCH 29.9 MCHC 32.0 RDW 14.0 Plt Count 225 MPV 8.2 Neut % (Auto) 58.3 Lymph % (Auto) 33.0 [place] % (Auto) 4.8 Eos % (Auto) 2.9 Baso % (Auto) 1.0 Neut # (Auto) 4.8 Lymph # (Auto) 2.7 [place] # (Auto) 0.4 Eos # (Auto) 0.2 Baso # (Auto) 0.1 D-Dimer < 100 Sodium 143 Potassium 3.4 L Chloride 106 Carbon Dioxide 26 Anion Gap 14.4 BUN 10 Creatinine 1.03 Estimated Creat Clear 151 Estimated GFR 76 Est GFR ( Amer) 92 Glucose 161 H Calcium 8.7 Troponin I < 0.02 TSH Free T4 Index Thyroxine (T4) T3 Uptake DS: Diagnosis - Discharge Diagnosis (1) Arrhythmia Status: Acute (2) Automatic implantable cardiac defibrillator in situ Status: Chronic (3) CAD (coronary artery disease) Status: Chronic (4) Hyperlipidemia Status: Chronic (5) Ischemic cardiomyopathy Status: Chronic (6) Ventricular tachycardia, non-sustained Status: Acute Discharge Plan - Patient Discharge Instructions Patient Instructions: DI for Arrhythmias, DI for Ventricular Tachycardia - Follow up Plan Follow up with: Ji Salinas MD [Primary Care Provider] - 2 weeks Vitaly Turner MD [Staff Physician] - 1 week Disposition: Home, [facility] Medications: Home Medications Medication Instructions Recorded Confirmed Type aspirin 81 mg tablet,delayed 81 mg PO QDAY 09/07/17 09/03/19 History release Atorvastatin Calcium [Atorvastatin 40 mg PO DAILY 01/11/18 09/03/19 History 40mg Tab] Levothyroxine Sodium 25 mg PO DAILY 01/11/18 09/03/19 History [Levothyroxine 25mcg (0.025mg) Tab] cholecalciferol (vitamin D3) 125 5,000 unit PO DAILY 06/17/18 09/03/19 History mcg (5,000 unit) capsule sacubitril 49 mg-valsartan 51 mg 1 tab PO BID 03/17/19 09/03/19 History tablet Furosemide [Lasix 40mg tab] 40 mg PO DAILY 09/03/19 09/03/19 History Potassium Chloride 10 meq PO DAILY 09/03/19 09/03/19 History Sacubitril/Valsartan [Entresto 24 1 each PO BID #60 tab 09/04/19 Rx mg-26 mg Tablet] carvediloL [Carvedilol 3.125mg Tab] 3.125 mg PO BID #60 tab 09/04/19 Rx Prescriptions/Medication Reconciliation: New carvediloL [Carvedilol 3.125mg Tab] 3.125 mg PO BID #60 tab Sacubitril/Valsartan [Entresto 24 mg-26 mg Tablet] 1 each PO BID #60 tab Continued aspirin 81 mg tablet,delayed release 81 mg PO QDAY cholecalciferol (vitamin D3) 125 mcg (5,000 unit) capsule 5,000 unit PO DAILY Levothyroxine Sodium [Levothyroxine 25mcg (0.025mg) Tab] 25 mg PO DAILY Atorvastatin Calcium [Atorvastatin 40mg Tab] 40 mg PO DAILY Furosemide [Lasix 40mg tab] 40 mg PO DAILY Potassium Chloride 10 meq PO DAILY Discontinued sacubitril 49 mg-valsartan 51 mg tablet 1 tab PO BID - Problem Reconciliation Problems Reviewed?: Yes <Ji Salinas - Last Filed: 09/04/19 09:16> General - General Admission date:: 09/04/19 Exam Vital signs and Labs for Last 24 Hours: Temp Pulse Resp BP Pulse Ox 98.9 F 70 18 122/73 97 09/04/19 08:00 09/04/19 08:00 09/04/19 08:00 09/04/19 08:00 09/04/19 08:00 Laboratory Results - last 24 hr 09/03/19 22:35: WBC 8.2, RBC 4.83, Hgb 14.5, Hct 45.1, MCV 93.3, MCH 29.9, MCHC 32.0, RDW 14.0, Plt Count 225, MPV 8.2, Neut % (Auto) 58.3, Lymph % (Auto) 33.0, [place] % (Auto) 4.8, Eos % (Auto) 2.9, Baso % (Auto) 1.0, Neut # (Auto) 4.8, Lymph # (Auto) 2.7, [place] # (Auto) 0.4, Eos # (Auto) 0.2, Baso # (Auto) 0.1 09/03/19 22:35: Sodium 143, Potassium 3.4 L, Chloride 106, Carbon Dioxide 26, Anion Gap 14.4, BUN 10, Creatinine 1.03, Estimated Creat Clear 151, Estimated GFR 76, Est GFR ( Amer) 92, Glucose 161 H, Calcium 8.7, Troponin I < 0.02 09/03/19 22:35: D-Dimer < 100 09/03/19 22:35: TSH 6.18 H D, Free T4 Index 3.5 L, Thyroxine (T4) 10.5, T3 Uptake 33 09/04/19 01:30: Troponin I < 0.02 09/04/19 04:15: Troponin I < 0.02 I & O for Last 24 hours: Intake & Output 09/01/19 09/02/19 09/03/19 09/04/19 23:59 23:59 23:59 23:59 Weight 280 lb 301 lb 7 oz Results Labs on day of discharge: Labs from last 24 hours 09/04/19 09/04/19 09/03/19 04:15 01:30 22:35 WBC RBC Hgb Hct MCV MCH MCHC RDW Plt Count MPV Neut % (Auto) Lymph % (Auto) [place] % (Auto) Eos % (Auto) Baso % (Auto) Neut # (Auto) Lymph # (Auto) [place] # (Auto) Eos # (Auto) Baso # (Auto) D-Dimer Sodium Potassium Chloride Carbon Dioxide Anion Gap BUN Creatinine Estimated Creat Clear Estimated GFR Est GFR ( Amer) Glucose Calcium Troponin I < 0.02 < 0.02 TSH 6.18 H D Free T4 Index 3.5 L Thyroxine (T4) 10.5 T3 Uptake 33 09/03/19 09/03/19 09/03/19 22:35 22:35 22:35 WBC 8.2 RBC 4.83 Hgb 14.5 Hct 45.1 MCV 93.3 MCH 29.9 MCHC 32.0 RDW 14.0 Plt Count 225 MPV 8.2 Neut % (Auto) 58.3 Lymph % (Auto) 33.0 [place] % (Auto) 4.8 Eos % (Auto) 2.9 Baso % (Auto) 1.0 Neut # (Auto) 4.8 Lymph # (Auto) 2.7 [place] # (Auto) 0.4 Eos # (Auto) 0.2 Baso # (Auto) 0.1 D-Dimer < 100 Sodium 143 Potassium 3.4 L Chloride 106 Carbon Dioxide 26 Anion Gap 14.4 BUN 10 Creatinine 1.03 Estimated Creat Clear 151 Estimated GFR 76 Est GFR ( Amer) 92 Glucose 161 H Calcium 8.7 Troponin I < 0.02 TSH Free T4 Index Thyroxine (T4) T3 Uptake DS: Diagnosis - Discharge Diagnosis (1) Arrhythmia Status: Acute (2) Automatic implantable cardiac defibrillator in situ Status: Chronic (3) CAD (coronary artery disease) Status: Chronic (4) Hyperlipidemia Status: Chronic (5) Ischemic cardiomyopathy Status: Chronic (6) Ventricular tachycardia, non-sustained Status: Acute Discharge Plan - Patient Discharge Instructions ACTIVITY: Continue current activity DIET: continue same diet - Problem Reconciliation Problems Reviewed?: Yes
--- NOTE | 2019-09-04 18:12 | Electrocardiograph Report ---
APPROVED REPORT Exam: Resting ECG HR:99 bpm ECG Measurements Heart Rate 99 AXES TX 164 P 63 QRSd 114 QRS -48 QT 368 T45 QTc 472 <Conclusion> Normal sinus rhythm with sinus arrhythmia Left axis deviation,LAHB Anterolateral infarct, age undetermined Abnormal ECG Electronically signed by : Jean Diana, 09/04/2019 18:12:13
== END 2019-09-04 10:45 | disposition home or self-care (01) ==
LOC: ER 21:35 → 2ND 21:35
PROVIDERS: ADMIT Family Medicine; ATTEND Family Medicine
CPT/HCPCS: 36415; 71020; 71046; 80048; 84436; 84443; 84479; 84484; 85025; 85378; 93005; 99284; G0378

== ENCOUNTER → 2019-09-22 10:08 | Outpatient (CLI) | payer OTHER, SELFPAY ==
[2019-09-22 13:26] LABS: Anion Gap 9.7 mEq/L (5-15); Blood Urea Nitrogen 8 mg/dL (7-18); Calcium 9.1 mg/dL (8.5-10.1); Carbon Dioxide 29 mmol/L (21.0-32.0); Chloride 104 mmol/L (98-107); Creatinine,Serum 1.03 mg/dL (0.70-1.30); Estimated Glomerular Filt Rate 76 ml/min (>60); GFR (African American) 92 ML/MIN (>60); Glucose 87 mg/dL (74-106); Potassium 4.7 mmoL/L (3.5-5.1); Sodium 138 mmol/L (136-145)
== END ==
PROVIDERS: Visit Provider Internal Medicine Cardiovascular Disease
DX: I25.10 Atherosclerotic heart disease of native coronary artery without angina pectoris (principal); I25.5 Ischemic cardiomyopathy; E78.5 Hyperlipidemia, unspecified; I10 Essential (primary) hypertension; Z95.810 Presence of automatic (implantable) cardiac defibrillator
CPT/HCPCS: 36415; 80048; 83880

== ENCOUNTER → 2019-09-30 11:20 | Outpatient (CLI) | payer OTHER, SELFPAY | PROVIDERS: PCP Family Medicine; Visit Provider Internal Medicine Cardiovascular Disease | DX: I49.9 Cardiac arrhythmia, unspecified (principal); I25.5 Ischemic cardiomyopathy; I25.10 Atherosclerotic heart disease of native coronary artery without angina pectoris; R06.83 Snoring; I10 Essential (primary) hypertension | CPT/HCPCS: 95806 ==

== ENCOUNTER → 2019-10-20 09:54 | Outpatient (CLI) | payer OTHER, SELFPAY ==
[2019-10-20 10:20] LABS: Anion Gap 12.1 mEq/L (5-15); Blood Urea Nitrogen 9 mg/dL (7-18); Calcium 8.8 mg/dL (8.5-10.1); Carbon Dioxide 26 mmol/L (21.0-32.0); Chloride 108 mmol/L (98-107); Creatinine,Serum 1.06 mg/dL (0.70-1.30); Estimated Glomerular Filt Rate 73 ml/min (>60); GFR (African American) 89 ML/MIN (>60); Glucose 194 mg/dL (74-106); Potassium 4.1 mmoL/L (3.5-5.1); Sodium 142 mmol/L (137-145)
== END ==
PROVIDERS: Visit Provider Physician Assistant
DX: I25.10 Atherosclerotic heart disease of native coronary artery without angina pectoris (principal); R06.00 Dyspnea, unspecified; E78.5 Hyperlipidemia, unspecified; I10 Essential (primary) hypertension; I25.5 Ischemic cardiomyopathy; I47.2 Ventricular tachycardia; Z95.810 Presence of automatic (implantable) cardiac defibrillator
CPT/HCPCS: 36415; 80048

== ENCOUNTER → 2020-10-28 08:19 | Outpatient (CLI) | payer OTHER, SELFPAY ==
[2020-10-28 09:00] LABS: Chloride 106 mmol/L (98-107); Sodium 138 mmol/L (136-145)
[2020-10-28 09:01] LABS: Potassium 4.4 mmoL/L (3.5-5.1)
[2020-10-28 09:03] LABS: Blood Urea Nitrogen 11 mg/dl (9-20); Estimated Glomerular Filt Rate 88 ml/min (>60); GFR (African American) 107 ML/MIN (>60)
[2020-10-28 09:04] LABS: Anion Gap 9.4 mEq/L (5-15); Calcium 10.1 mg/dl (8.4-10.2); Carbon Dioxide 27 mmol/L (22.0-30.0); Glucose 137 mg/dl (74-100)
[2020-10-28 09:10] LABS: NT Pro Brain Natriuretic Pep. 74.1 pg/mL (0-125)
== END ==
PROVIDERS: Visit Provider Internal Medicine Cardiovascular Disease
DX: I25.5 Ischemic cardiomyopathy (principal); I20.9 Angina pectoris, unspecified; E78.5 Hyperlipidemia, unspecified; I10 Essential (primary) hypertension; Z95.810 Presence of automatic (implantable) cardiac defibrillator
CPT/HCPCS: 36415; 80048; 83880

== ENCOUNTER → 2020-10-31 06:18 | Outpatient (CLI) | payer OTHER, SELFPAY ==
--- NOTE | 2020-10-31 06:22 | CA_ITS ---
APPROVED REPORT EXAM: Comprehensive 2D, Doppler, and color-flow Echocardiogram Skill Labor: Amanda Tavarez RDCS Ht: 5 ft 11 in Wt: 301lbs BSA: 2.51 BP: 125/82 mmHg Indications: CP,SOA,CM,AICD 2D Dimensions Aortic Root 2.16 cm M: 3.1 - 3.7 LA Volume 30.40 mL LA Volume Index 12.11 mL/m2 (M/F) 16-34 M-Mode Dimensions RVDd 2.38 cm (0.9-2.6) LA Diam 2.56 cm (1.9-4.0) LVDd 6.26 cm (3.5-5.7) Ao Diam 3.81 cm (2.0-3.7) LVDs 4.94 cm (3.5-5.7) IVSd 0.68 cm (0.6-1.1) PWd 0.84 cm (0.6-1.1) EF (Teich) 42.00% FS 21.10% EDV (Teich) 198.30 mL TAPSE 1.73 (<1.7) ESV (Teich) 115.00 mL LV Diastology E Decel Time 180.00 (160-240 msec) E/A Ratio 1.1 MED E' 5.60 (< 7 cm/sec) E'/MED E' Ratio 13.12 (>14) LAT E' 11.90 (<10 cm/sec) E/LAT E' Ratio 6.18 (>14) Mitral Valve MV E Max Vinod. 73.00 (40-130 cm/s) MV A Velocity 65.00 (40-130 cm/s) E/A Ratio 1.14 MV Decel. Time 180.00 (160-240 ms) MV PHT 53.00 ms Left Ventricle Technically difficult study because of the patient fact in poor acoustic windows. Definity contrast was utilized to delineate the endocardial surfaces. Left atrium is mildly enlarged, left ventricle is mildly dilated, visually estimated ejection fraction 30%, there is marked hypokinesis involving mid to distal septum, anterior, anterior apical and apical wall, there is no left ventricular thrombus seen. Diastolic parameters are inconclusive. Right Ventricle Right atrium and right ventricular normal size and contractility, there is an AICD lead seen in the right ventricle. Aortic Valve Aortic valve is minimally thickened and fibrosed, there is no aortic stenosis or aortic insufficiency. Mitral Valve Mitral valve is grossly normal, there is trace mitral regurgitation. Tricuspid Valve Tricuspid valve grossly normal, there is trace tricuspid regurgitation, tricuspid regurgitation jet velocity is inadequate for calculation of the right ventricular systolic pressure. Pulmonic Valve Pulmonic valve is poorly visualized. Great Vessels Aortic root is normal size. Pericardium No significant pericardial effusion noted. Conclusion 1. Technically difficult study because of the patient fact in poor acoustic windows. Definity contrast was utilized to delineate the endocardial surfaces. Mildly dilated left ventricle, visually estimated ejection fraction 30% with multiple segmental wall motion abnormality described above, there is no left ventricular thrombus seen. 2. Trace mitral and tricuspid regurgitation. 3. No significant pericardial effusion noted. Electronically signed by : Emmanuel Hahn, 10/31/2020 14:23:44
--- NOTE | 2020-10-31 06:22 | CA_ITS ---
APPROVED REPORT Exam: Pharmacologic Technologist: Lucy Lucio, Ht: 5 ft 11 in Wt: 301 lbs BSA: 2.51 m2 HR: 71 bpm BP: 117/72 mmHg Medical History Medications: Aspirin,,,,, Carvedilol,,,,, SpirOnolactone,,,,, AtorvaASTATIN,,,,, LevothROXINE,,,,, EnTRESTO,,,,, Stress Test Details Test: LEXISCAN HR Resting HR: 75 bpm Max Heart Rate (APMHR): 167 bpm Max HR Achieved: 124 bpm Target HR (85% APMHR): 141 bpm % of APMHR: 74 Recovery HR: 87 bpm BP Resting BP: 117/72 mmHg Max BP: 135/78 mmHg Recovery BP: 119.0/66.0 mmHg ECG Resting ECG: NSR, old anterior ID Clinical Exercise duration: 04:01 min Highest Stage Achieved: Exercise capacity: 1.0 METs Stress ECG Conclusion Symptoms: Mild SOA, nausea, CP, mild malaise Arrhythmias/Ectopy: None ST-T Changes: 0.75-[address] depression inferiorly Conclusion: Non-diagnostic Lexiscan stress. Myoview images reported separately Electronically signed by : Emmanuel Hahn, 10/31/2020 14:49:40
--- NOTE | 2020-10-31 06:22 | NM_ITS ---
APPROVED REPORT Exam: Nuclear Stress Test Indication: CHEST PAIN..SHORT OF BREATH Patient Location: Outpatient Stress Tech: Maria Eugenia Martinez GA Tech:JACKY Angela RT(R)(N) Ht: 5 ft 11 in Wt: 300 lbs HR: 71 bpm BP: 117/72 mmHg BSA: 2.51 m2 BMI: 41.8 History: CHEST PAIN..SHORT OF BREATH Procedure: Patient received a 0.4 mg of intravenous Lexiscan, resting heart rate 71 bpm, resting blood pressure 117/72 mmHg, with Lexiscan maximum heart rate achived was 116 bpm which is Less than 85 % of the maximum predicted heart rate and blood pressure was 135/78 mmHg. Electrocardiogram Resting electrocardiogram showed sinus rhythm, with Lexiscan there is less than 1.[address] segment depression noted from the baseline EKG. Cardiac Stress and Resting SPECT Images: Cardiac Stress and Resting SPECT images were obtained using technetium 99m Myoview 32.8 mCi stress and 9.69 mCi at rest. Cardiac stress and rest SPECT images show moderate to large sized area of fixed defect involving the anterior, anterior apical and anteroseptal wall consistent with area of myocardial scarring without significant evans-infarct ischemia. Computer derived ejection fraction is 34% with marked hypokinesis involving the anterior, anterior apical, apical and anteroseptal wall. Right ventricle is normal size and contractility. Conclusion: 1. The EKG portion of the Lexiscan is nondiagnostic 2. Scintigraphic evidence of myocardial scarring involving the anterior, anterior apical, and anteroseptal wall without significant evans-infarct ischemia, computer derived ejection fraction is 34% with segmental wall motion abnormality described above, right ventricle is normal size and contractility. 3. Abnormal Lexiscan Myoview study. Electronically signed by : Emmanuel Hahn, 10/31/2020 14:53:54
--- NOTE | 2020-10-31 09:06 | HMH.ITSHM ---
Current Home Medications as stated by this patient Talat Goel or area representative. [] spironolactone cardedilol asa levothyroxine lipitor
== END ==
PROVIDERS: PCP Family Medicine; Visit Provider Internal Medicine Cardiovascular Disease
DX: I20.9 Angina pectoris, unspecified (principal); R07.89 Other chest pain; R06.00 Dyspnea, unspecified; I25.5 Ischemic cardiomyopathy; E78.5 Hyperlipidemia, unspecified; I10 Essential (primary) hypertension; Z95.810 Presence of automatic (implantable) cardiac defibrillator
CPT/HCPCS: 78452; 93017; 93306; A9502; J2785; Q9957

== ENCOUNTER → 2021-10-28 10:16 | Outpatient (CLI) | payer BC, SELFPAY ==
[2021-10-28 11:16] LABS: Basophils # 0.1 K/mm3 (0-0.2); Basophils % 1.5 % (0.1-2.0); Eosinophils # 0.3 K/mm3 (0.0-0.4); Eosinophils % 3.6 % (0.1-12.0); Hematocrit 45.2 % (42.0-52.0); Lymphocytes # 2.3 K/mm3 (0.7-4.5); Lymphocytes % 30.5 % (10-50); Mean Corpuscular HGB Conc 33.3 g/dL (31.8-35.4); Mean Corpuscular Hemoglobin 31.9 pg (27.0-31.2); Mean Corpuscular Volume 95.7 fl (80-94); Mean Platelet Volume 9.6 fl (7.4-10.4); Monocytes # 0.4 K/mm3 (0.1-1.0); Monocytes % 4.8 % (1.7-9.3); Neutrophils # 4.5 K/mm3 (1.8-7.8); Neutrophils % 59.6 % (37.0-80.0); Platelet Count 273 K/mm3 (142-424); Red Blood Count 4.72 M/mm3 (4.60-6.20); Red Cell Distribution Width 12.9 % (11.5-17.5); White Blood Count 7.6 K/mm3 (4.8-10.8)
[2021-10-28 11:41] LABS: NT Pro Brain Natriuretic Pep. 84.9 pg/mL (0-125)
[2021-10-28 12:02] LABS: Thyroid Stimulating Hormone 2.51 uIU/mL (0.465-4.68)
[2021-10-28 12:36] LABS: 25-OH Vitamin D, Total 44.9 ng/mL (30-100)
== END ==
PROVIDERS: Visit Provider Family Medicine
DX: R06.02 Shortness of breath (principal); E55.9 Vitamin D deficiency, unspecified; E03.9 Hypothyroidism, unspecified
CPT/HCPCS: 36415; 82306; 83880; 84443; 85025

== ENCOUNTER → 2022-03-11 10:18 | Outpatient (CLI) | payer OTHER, SELFPAY ==
--- NOTE | 2022-03-11 10:42 | XR_ITS ---
FINAL REPORT CLINICAL HISTORY: BILATERAL FOOT PAIN FINDINGS: RIGHT FOOT Three views were obtained. There is no acute fracture or dislocation. There are mild degenerative changes of the 1st metatarsophalangeal joint. A small plantar calcaneal spur is identified. No soft tissue abnormality is identified. IMPRESSION: Mild degenerative changes. Reviewed, Interpreted and Dictated by Colby Zhang III, MD Transcribed by Saida Arteaga Authenticated and [facility]
--- NOTE | 2022-03-11 10:42 | XR_ITS ---
FINAL REPORT CLINICAL HISTORY: KNEE PAIN FINDINGS: LEFT KNEE Three views were obtained. There is no acute fracture or dislocation. There is mild patellar degenerative change. No joint effusion is identified. No soft tissue abnormality is identified. IMPRESSION: Mild degenerative changes of the patella. Reviewed, Interpreted and Dictated by Colby Zhang III, MD Transcribed by Saida Arteaga Authenticated and . [facility]
--- NOTE | 2022-03-11 10:42 | XR_ITS ---
FINAL REPORT CLINICAL HISTORY: BILATERAL FOOT PAIN FINDINGS: LEFT FOOT Three views were obtained. There is no acute fracture or dislocation. The joint spaces appear normal. No soft tissue abnormality is identified. There is a plantar calcaneal spur. IMPRESSION: No acute process. Reviewed, Interpreted and Dictated by Colby Zhang III, MD Transcribed by Saida Arteaga Authenticated and . [facility]
[2022-03-11 11:11] LABS: Alanine Aminotransferase 25 U/L (12-78); Albumin Level 4.2 g/dl (3.5-5.0); Albumin/Globulin Ratio 1.6 (1.1-1.8); Alkaline Phosphatase 66 U/L (38-126); Anion Gap 11.6 mEq/L (5-15); Aspartate Amino Transferase 27 U/L (17-59); Bilirubin,Total 0.6 mg/dl (0.2-1.3); Blood Urea Nitrogen 8 mg/dl (9-20); Calcium 9.6 mg/dl (8.4-10.2); Carbon Dioxide 27 mmol/L (22.0-30.0); Chloride 104 mmol/L (98-107); Estimated Glomerular Filt Rate 118 ml/min (>60); GFR (African American) 142 ML/MIN (>60); Globulin 2.6 g/dL (1.3-3.2); Glucose 133 mg/dl (74-100); Potassium 4.6 mmoL/L (3.5-5.1); Sodium 138 mmol/L (136-145); Total Protein,Serum 6.8 g/dl (6.3-8.2); Uric Acid 5.1 mg/dl (3.5-8.5)
[2022-03-11 12:32] LABS: Erythrocyte Sedimentation Rate 12 mm/hr (0-20)
[2022-03-11 20:06] LABS: Hemoglobin A1C 5.9 % (4.0-6.0)
[2022-03-12 12:11] LABS: RA Latex Turbid. <10.0 IU/mL (<14.0)
[2022-03-13 08:14] LABS: Antinuclear Antibodies, IFA Negative (.)
== END ==
PROVIDERS: PCP Family Medicine; Visit Provider Nurse Practitioner Family
DX: M79.671 Pain in right foot (principal); M79.672 Pain in left foot; M25.562 Pain in left knee
CPT/HCPCS: 36415; 73562; 73630; 80053; 83036; 84550; 85651; 86038; 86431

== ENCOUNTER 2022-10-27 12:02 | Emergency (ER) | payer OTHER, SELFPAY ==
[2022-10-27 12:02] VITALS: BP 129/83; PULSE 74; RESP 19; TEMP 36.8; O2SAT 99; BMI 41.5
--- NOTE | 2022-10-27 12:09 | ECG_ITS ---
APPROVED REPORT Exam: Resting ECG HR:61 bpm ECG Measurements Heart Rate 61 AXES MN 200 P -90 QRSd 119 QRS -62 QT 397 T 53 QTc 399 Conclusion ELECTRONIC ATRIAL PACEMAKER ABNORMAL ECG UNCONFIRMED REPORT Electronically signed by : Enzo Fernandez MD 10/27/2022 20:01:59
--- NOTE | 2022-10-27 12:21 | XR_ITS ---
FINAL REPORT CLINICAL HISTORY: SOA, dizziness COMPARISON: 09/03/2019 FINDINGS: Two views of the chest were obtained. The heart size and pulmonary vascularity are within normal limits. The mediastinum is normal. Left subclavian ICD is present. No acute pulmonary abnormality is identified. There is no pneumothorax. The bony thorax is intact. IMPRESSION: No active cardiopulmonary disease. Reviewed, Interpreted and Dictated by Colby Zhang III, MD Transcribed by Saida Arteaga Authenticated and [facility]
[2022-10-27 12:30] LABS: Chloride 106 mmol/L (98-107); Potassium 4.2 mmoL/L (3.5-5.1); Sodium 139 mmol/L (136-145)
[2022-10-27 12:33] LABS: Anion Gap 11.2 mEq/L (5-15); Blood Urea Nitrogen 5 mg/dl (9-20); Carbon Dioxide 26 mmol/L (22.0-30.0); Creatinine Clearance Estimated 108 mL/min (50-200); Estimated Glomerular Filt Rate 100 ml/min (>60); GFR (African American) 121 ML/MIN (>60)
[2022-10-27 12:34] LABS: Glucose 169 mg/dl (74-100)
[2022-10-27 12:37] LABS: Basophils # 0.1 K/mm3 (0-0.2); Basophils % 1.3 % (0.1-2.0); Eosinophils # 0.2 K/mm3 (0.0-0.4); Eosinophils % 3.4 % (0.1-12.0); Hematocrit 45.2 % (42.0-52.0); Hemoglobin 15.1 g/dL (14.1-18.0); Lymphocytes # 2.3 K/mm3 (0.7-4.5); Lymphocytes % 36.4 % (10-50); Mean Corpuscular HGB Conc 33.3 g/dL (31.8-35.4); Mean Corpuscular Hemoglobin 31.3 pg (27.0-31.2); Mean Platelet Volume 9.3 fl (7.4-10.4); Monocytes # 0.3 K/mm3 (0.1-1.0); Monocytes % 5.4 % (1.7-9.3); Neutrophils # 3.3 K/mm3 (1.8-7.8); Neutrophils % 53.5 % (37.0-80.0); Platelet Count 230 K/mm3 (142-424); Red Blood Count 4.81 M/mm3 (4.60-6.20); Red Cell Distribution Width 13.1 % (11.5-17.5); White Blood Count 6.2 K/mm3 (4.8-10.8)
--- NOTE | 2022-10-27 12:46 | HMH.EDGENADL ---
Discharge Plan Disposition Patient Disposition: Home, Self-Care Condition: Good Chief Complaint: Neuro Symptoms/Deficit Prescriptions Prescriptions: No Action atorvastatin 40 mg tablet 40 mg PO DAILY Label Comments: TAKE 1 TABLET BY MOUTH EVERY DAY carvedilol 6.25 mg tablet 6.25 mg PO BID Label Comments: TAKE 1 TABLET BY MOUTH TWICE DAILY spironolactone 25 mg tablet 25 mg PO BID Label Comments: TAKE 1 TABLET BY MOUTH TWICE DAILY levothyroxine 25 mcg tablet 25 mcg PO AM Label Comments: TAKE 1 TABLET BY MOUTH EVERY DAY tamsulosin 0.4 mg capsule 0.4 mg PO HS Label Comments: TAKE 1 CAPSULE BY MOUTH EVERY DAY aspirin 81 mg Tablet 81 mg PO DAILY Entresto 24-26 mg tablet 1 tab PO BID Label Comments: TAKE 1 TABLET BY MOUTH TWICE DAILY Referrals Follow up/Referrals: Ji Salinas MD [Primary Care Provider] - See instructions Activity Restrictions/Add. Instructions Additional Instructions/Restrictions: Follow-up with your legal document assistant for further diagnostic testing and management of your shortness of breath to ensure that it is not an angina (cardiac related) equivalent, meaning further heart disease. If you have any other concerning signs or symptoms, return to the ER for further evaluation. Clinical Impressions Clinical Impression: Acute dyspnea Discharge ED Provider: Temo Rogers General Adult HPI General Chief complaint: Neuro Symptoms/Deficit Stated complaint: SOA Dizzy Time Seen by Provider: 10/27/22 12:10 Mode of Arrival: Ambulatory Source of Information: Patient Limitations: No Limitations Description of Symptoms (Recalled from ER Triage Doc. by RN): 57 M presents with c/o dizziness and SOA. He woke up this morning around 0800 and couldn't catch his breath. Denies loss of vision, chest pain, fever or chills. History of Present Illness HPI narrative: Is a 57-year-old male with history of CAD, 2 times SC status post stenting and AICD placement presenting with shortness of breath. Patient states that shortness of breath started while he was lifting tires approximately 4 hours prior to arrival. Denies chest pain, nausea, vomiting, diaphoresis, weakness, neurologic deficits. He states that he just felt bad all over, and sat down. Shortness of breath persisted, so he came to the ER for further evaluation. Denies AICD discharge, trauma, or any other concerns. This does not feel like his previous episodes of heart attack. Related Data Home Medications Medication Instructions Recorded Confirmed aspirin 81 mg tablet 81 mg PO DAILY Heart 10/27/22 10/27/22 atorvastatin 40 mg tablet 40 mg PO DAILY Cholesterol 10/27/22 10/27/22 carvedilol 6.25 mg tablet 6.25 mg PO BID Heart 10/27/22 10/27/22 levothyroxine 25 mcg tablet 25 mcg PO AM Hypothyroidism 10/27/22 10/27/22 sacubitril 24 mg-valsartan 26 mg 1 tab PO BID Heart 10/27/22 10/27/22 tablet (Entresto) spironolactone 25 mg tablet 25 mg PO BID Edema 10/27/22 10/27/22 tamsulosin 0.4 mg capsule 0.4 mg PO HS BPH 10/27/22 10/27/22 Allergies Allergy/AdvReac Type Severity Reaction Status Date / Time codeine [CODEINE] Allergy Intermediate Verified 07/22/22 09:51 [facility] Disclaimer: The information contained in this section may have been updated after the patient was seen, as this information can be updated by other users. Medical History Automatic implantable cardiac defibrillator in situ CAD (coronary artery disease) Coronary arteriosclerosis HTN (hypertension), benign Hyperlipidemia Hypertensive disorder Ischemic cardiomyopathy Myocardial infarction Palpitations Family History Other Heart attack Hyperlipidemia Stroke Social History Smoking Status: Former smoker alcohol intake: former substance use t
[2022-10-27 12:47] LABS: Troponin I < 0.01 ng/ml (0.00-0.034)
[2022-10-27 13:41] VITALS: BP 117/73; PULSE 62; O2SAT 100
[2022-10-27 14:00] VITALS: BP 119/71; PULSE 60; O2SAT 100
[2022-10-27 14:30] VITALS: BP 117/67; PULSE 65; O2SAT 100
[2022-10-27 15:00] VITALS: BP 108/66; PULSE 66; RESP 18; O2SAT 98
--- NOTE | 2022-10-27 15:01 | PC.NURSE ---
ER MD gave verbal order for second troponin on pt.
--- NOTE | 2022-10-27 15:08 | PC.NURSE ---
checked on pt at this time, updated pt on POC
[2022-10-27 16:00] LABS: Troponin I < 0.01 ng/ml (0.00-0.034)
[2022-10-27 16:05] VITALS: BP 121/79; PULSE 69; RESP 17; TEMP 36.8; O2SAT 97
== END 2022-10-27 16:10 | disposition home or self-care (01) ==
PROVIDERS: Emergency Provider Emergency Medicine; PCP Family Medicine
DX: R06.00 Dyspnea, unspecified (principal); R42 Dizziness and giddiness; R06.02 Shortness of breath; I25.10 Atherosclerotic heart disease of native coronary artery without angina pectoris; I25.2 Old myocardial infarction; I11.9 Hypertensive heart disease without heart failure; Z95.0 Presence of cardiac pacemaker; E78.5 Hyperlipidemia, unspecified; Z86.79 Personal history of other diseases of the circulatory system; I25.5 Ischemic cardiomyopathy; Z87.891 Personal history of nicotine dependence; Z82.3 Family history of stroke; Z83.42 Family history of familial hypercholesterolemia; Z82.49 Family history of ischemic heart disease and other diseases of the circulatory system
CPT/HCPCS: 36415; 71046; 80048; 83880; 84484; 85025; 93005; 96360; 99285

== ENCOUNTER → 2023-02-09 07:52 | Outpatient (CLI) | payer OTHER, SELFPAY | PROVIDERS: PCP Family Medicine; Visit Provider Nurse Practitioner | DX: R06.02 Shortness of breath (principal) | CPT/HCPCS: 93306 ==

== ENCOUNTER 2023-09-18 08:01 | Outpatient (CLI) | payer BC, SELFPAY ==
[2023-09-18 08:16] LABS: Basophils # 0.1 K/mm3 (0-0.2); Basophils % 0.8 % (0.1-2.0); Eosinophils # 0.3 K/mm3 (0.0-0.4); Eosinophils % 3.5 % (0.1-12.0); Hematocrit 45.8 % (42.0-52.0); Hemoglobin 15.3 g/dL (14.1-18.0); Lymphocytes # 2.3 K/mm3 (0.7-4.5); Lymphocytes % 27.9 % (10-50); Mean Corpuscular HGB Conc 33.3 g/dL (31.8-35.4); Mean Corpuscular Hemoglobin 31.2 pg (27.0-31.2); Mean Corpuscular Volume 93.7 fl (80-94); Mean Platelet Volume 8.4 fl (7.4-10.4); Monocytes # 0.4 K/mm3 (0.1-1.0); Monocytes % 4.6 % (1.7-9.3); Neutrophils # 5.1 K/mm3 (1.8-7.8); Neutrophils % 63.3 % (37.0-80.0); Platelet Count 264 K/mm3 (142-424); Red Blood Count 4.88 M/mm3 (4.60-6.20); Red Cell Distribution Width 13.3 % (11.5-17.5); White Blood Count 8.1 K/mm3 (4.8-10.8)
[2023-09-18 08:56] LABS: Chloride 105 mmol/L (98-107); Sodium 139 mmol/L (136-145)
[2023-09-18 08:57] LABS: Potassium 4.6 mmoL/L (3.5-5.1)
[2023-09-18 08:59] LABS: Alanine Aminotransferase 24 U/L (12-78); Alkaline Phosphatase 61 U/L (38-126); Anion Gap 13.6 mEq/L (5-15); Aspartate Amino Transferase 23 U/L (17-59); Bilirubin,Indirect 0.5 mg/dL (0.0-0.9); Bilirubin,Total 0.5 mg/dl (0.2-1.3); Bilirubin,Unconjugated 0.6 mg/dL (0.0-1.1); Blood Urea Nitrogen 8 mg/dl (9-20); Calcium 9.2 mg/dl (8.4-10.2); Carbon Dioxide 25 mmol/L (22.0-30.0); Cholesterol 180 mg/dl (140-200); Estimated Glomerular Filt Rate 100 ml/min (>60); GFR (African American) 121 ML/MIN (>60); Glucose 132 mg/dl (74-100); Triglycerides 146 mg/dl (30-150); VLDL Cholesterol 29 mg/dL (0-40)
[2023-09-18 09:00] LABS: Chol/HDL Ratio 5.6 (1-3.5); HDL Cholesterol 32 mg/dl (40-60); Total Protein,Serum 6.5 g/dl (6.3-8.2)
[2023-09-18 09:11] LABS: Direct LDL Cholesterol 107.79 mg/dL (100-129)
[2023-09-18 09:16] LABS: Free T4 (Free Thyroxine) 1.14 ng/dl (0.78-2.19)
[2023-09-18 09:31] LABS: Thyroid Stimulating Hormone 1.89 uIU/mL (0.465-4.68)
== END 2023-09-18 23:59 ==
LOC: LAB 08:02
PROVIDERS: PCP Family Medicine; Visit Provider Physician Assistant
DX: E78.5 Hyperlipidemia, unspecified (principal); I11.9 Hypertensive heart disease without heart failure; I25.118 Atherosclerotic heart disease of native coronary artery with other forms of angina pectoris; I25.5 Ischemic cardiomyopathy; R06.09 Other forms of dyspnea; Z95.810 Presence of automatic (implantable) cardiac defibrillator; Z87.891 Personal history of nicotine dependence
CPT/HCPCS: 36415; 80048; 80061; 80076; 83735; 84439; 84443; 85025

== ENCOUNTER 2023-09-28 11:41 | Outpatient (CLI) | payer BC, SELFPAY ==
--- NOTE | 2023-09-28 11:41 | NM_ITS ---
APPROVED REPORT Exam: Nuclear Stress Test Indication: SOB, Fatigue, HTN, High cholesterol, Family history, CAD, Hx of MD Patient Location: Outpatient Stress Tech: Lucy Lucio ND Tech:Katalina Neri, ARRT, RT (R)(N) Ht: 5 ft 11 in Wt: 295 lbs BP: 123/68 mmHg BSA: 2.49 m2 TID: 1.20 BMI: 41.1 History: SOB, Fatigue, HTN, High cholesterol, Family history, CAD, Hx of MD Procedure: Patient received 0.4 mg of intravenous AdenosineLexiscan, resting heart rate bpm, resting blood pressure 123/68 mmHg, with Lexiscan maximum heart rate achieved was 103 bpm which is % of the maximum predicted heart rate and blood pressure was 139/70 mmHg. With Lexiscan, patient denied any complaint of chest pain. Cardiac Stress and Resting SPECT Images: Cardiac Stress and Resting SPECT images were obtained using technetium 99m Myoview 32.7 mCi stress and 10.98 mCi at rest. Resting and stress imaging in supine and prone positions demonstrate a large sized, severe, predominantly fixed perfusion defect in the entire septal LV wall, as well as the mid to distal anterior, anteroseptal, inferior, and inferoseptal LV shafer. The LV apex is also involved. There is some reversibility in the anterior LV wall region. There is borderline increase in transient ischemic dilatation ratio (TID 1.20), suggestive of possible multivessel disease or balanced ischemia. Gated imaging demonstrates moderate global reduction in LV systolic function. There is akinesis of the distal LV shafer, the LV septum, and the LV apex. LVEF is calculated at 33%. Conclusion: Large sized, severe, predominantly fixed perfusion defect in the entire septal LV wall, as well as the mid to distal anterior, anteroseptal, inferior, and inferoseptal LV shafer. The LV apex is also involved. There is some reversibility in the anterior LV wall region. There is borderline increase in transient ischemic dilatation ratio (TID 1.20), suggestive of possible multivessel disease or balanced ischemia. Gated imaging demonstrates moderate global reduction in LV systolic function. There is akinesis of the distal LV shafer, the LV septum, and the LV apex. LVEF is calculated at 33%. Electronically signed by : Constance Callahan MD 09/29/2023 12:48:38
--- NOTE | 2023-09-28 11:54 | CA_ITS ---
APPROVED REPORT EXAM: Comprehensive 2D, Doppler, and color-flow Echocardiogram Test Lab Technician: Frances Lugo, RCS, RVS Ht: 5 ft 11 in Wt: 299lbs BSA: 2.50 BP: 142/77 mmHg Indications: CM, CAD, CP, Obesity, SOB, HTN, HLD Echo Enhancing Agent Indication: Endocardial border delineation Agent(s) / Amount(s) Used: Definity 2 cc Comments: Extremely limited accoustic windows due to body habitus 2D Dimensions IVSd 0.87 cm M: 0.6-1.2 LVEF (Visual) 35.00 % PWd 0.85 cm M: 0.6 - 1.2 LVDd 5.32 cm M: 4.2 - 5.9 LVDs 3.36 cm M: 2.5 - 4.0 Aortic Root 3.07 cm M: 3.1 - 3.7 Left Atrium 4.02 cm M: 3.0 - 4.0 LVOT 1.96 cm (M/F) 1.5-2.5 M-Mode Dimensions LVDd 5.32 cm (3.5-5.7) Ao Diam 3.67 cm (2.0-3.7) LVDs 5.45 cm (3.5-5.7) IVSd 0.87 cm (0.6-1.1) PWd 0.85 cm (0.6-1.1) EF (Teich) 33.10% EPSs 1.74 cm FS 23.07% EDV (Teich) 216.00 mL ESV (Teich) 144.40 mL LV Diastology E Decel Time 194 (160-240 msec) E/A Ratio 1.8 MED E' 5.4 (>= 7 cm/sec) MED A' 8.30 cm/s E'/MED E' Ratio 15.81 (<= 14) LAT E' 6.2 (>= 10 cm/sec) LAT A' 7.40 cm/s E/LAT E' Ratio 13.77 (<= 14) Aortic Valve LVOT Max 86.0 (70-110 cm/s) RACHID Index 0.94 cm2/m2 LVOT VTI 18.76 cm AoV Peak Vinod. 116.0 (50-130 cm/s) AO Mean GR. 2.70 (<5 mmHg) AO VTI 24.0 (18-25 cm) RACHID (VTI) 2.36 (2.5-4.5 cm2) Mitral Valve MV E Max Vinod. 85.0 (40-130 cm/s) MV A Velocity 48.0 (40-130 cm/s) E/A Ratio 1.77 MV Decel. Time 194 (160-240 ms) Tricuspid Valve TR P. Velocity 192.00 cm/s Left Ventricle The left ventricle is normal size. A small apical aneurysm is present. Left ventricular systolic function is moderate to severely decreased. There is increased LV wall thickness. There is moderate to severe global hypokinesis present. There is akinesis of the LV apex and the distal LV shafer, as well as the anterior and anterolateral LV shafer. The left ventricular diastolic function is normal. No left ventricle thrombus noted on this study. Right Ventricle The right ventricle is not very well-visualized but grossly appears normal in size and function. There is a device lead in the right ventricle. Atria The left atrium size is normal. The right atrium size is normal. The atrial septal defect is not well visualized. Aortic Valve The aortic valve is mildly thickened. There is no aortic valvular stenosis. No aortic regurgitation is present. Mitral Valve The mitral valve is normal in structure. No evidence of mitral valve stenosis. There is no mitral valve regurgitation noted. Tricuspid Valve The tricuspid valve leaflets are thin and pliable. Trace tricuspid regurgitation. There is insufficient TR jet to estimate RVSP. Pulmonic Valve The pulmonary valve is normal in structure. Mild pulmonic regurgitation. Great Vessels The aortic root is normal in size. The ascending aorta is not well visualized. IVC is normal in size and collapses >50% with inspiration. Pericardium There is no pericardial effusion. Other Information Study Quality: Technically Difficult Conclusion Technically difficult study due to poor accoustic windows. Moderate to severe reduction in LV systolic function (LVEF 30%). Small apical aneurysm. Akinesis of the LV apex and the distal LV shafer, as well as the anterior and anterolateral LV shafer. No evidence of LV thrombus following administration of ultrasound enhancing agent. Mild MN. Electronically signed by : Constance Callahan MD 09/30/2023 11:11:45
[2023-09-28] MEDS: DEFINITY US ECHO CONTRAST 2ML INJ 2 MG IV (12:24)
[2023-09-28] MEDS: ISOTOPE MYOVIEW (PER STUDY) 1 DOSE IV (13:07)
[2023-09-28] MEDS: SODIUM CHLORIDE 0.9% 10ML SYR (RAD ONLY) 10 ML IV ×2 (13:07)
[2023-09-28] MEDS: REGADENOSON 0.4MG/5ML SYRINGE 0.400000000000000022 MG IV (13:07)
--- NOTE | 2023-09-28 13:37 | CA_ITS ---
APPROVED REPORT Exam: Pharmacologic Technologist: Lucy Bowles, Ht: 5 ft 11 in Wt: 299 lbs BSA: 2.50 m2 HR: 60 bpm BP: 123/68 mmHg Rhythm: NSR Medical History Medications: Levothyroxine,,,,, Atorvastatin,,,,, CarvediOL,,,,, EnTRESTO,,,,, Asprin,,,,, Furosemide,,,,, Stress Test Details Test: LEXISCAN Reason for pharmacologic stress test: physical limitation. HR Max Heart Rate (APMHR): 164 bpm Max HR Achieved: 103 bpm Target HR (85% APMHR): 139 bpm % of APMHR: 63 Recovery HR: 60 bpm BP Resting BP: 123.0/68.0 mmHg Max BP: 139.0/70.0 mmHg Recovery BP: 121.0/58.0 mmHg ECG Resting ECG: NSR, LBBB Stress ECG: No significant ST changes Arrhythmia: PVCs Clinical Exercise duration: 04:06 min Highest Stage Achieved: Stress ECG Conclusion Symptoms: anxious, dyspnea Arrhythmias/Ectopy: PVC ST-T Changes: No significant ST changes Conclusion: Nondiagnostic ECG portion of stress test due to baseline LBBB. Myoview images are reported with separately. Test Summary REST . . . . . . . Resting REST 01:36 . . . . 123/ 68 . . Stage 1 . . . . . . . Myoview Injected Stage 1 01:00 . . 64 . . . . Stage 2 01:00 . . 58 . . . . Stage 3 01:00 . . 75 . 133/ 72 . . Stage 4 01:00 . . 47 . 139/ 70 . . Stage 4 01:06 . . 56 . 124/ 64 . Stop exercise at 04:06 RECOVERY 01:00 . . 78 . . . . RECOVERY 02:00 . . . . . . . RECOVERY 03:00 . . 77 . 114/ 65 . . RECOVERY 03:14 . . 36 . 121/ 58 . . Electronically signed by : Constance Callahan MD 09/29/2023 12:44:03
== END 2023-09-28 23:59 ==
LOC: RAD 11:41
PROVIDERS: PCP Family Medicine; Visit Provider Physician Assistant
DX: R06.00 Dyspnea, unspecified (principal); I20.89 Other forms of angina pectoris; I25.5 Ischemic cardiomyopathy; I10 Essential (primary) hypertension; E78.5 Hyperlipidemia, unspecified; Z95.810 Presence of automatic (implantable) cardiac defibrillator
CPT/HCPCS: 78452; 93017; 93018; 93306; A9502; J2785; Q9957

== ENCOUNTER 2025-01-26 10:40 | Observation (INO) | payer BC, SELFPAY ==
[2025-01-26] VITALS (22 sets, daily range): BP systolic 103–141; BP diastolic 63–92; PULSE 60–69; RESP 16–20; TEMP 36.5–36.7; O2SAT 92–100; BMI 41.4
--- NOTE | 2025-01-26 07:09 | IR_ITS ---
APPROVED REPORT Patient Location: Outpatient Advertising Account Executive: Amrit Silverio RT (R) PROCEDURES Selective coronary angiogram Drug-eluting stent deployment in the ostial proximal and mid chronically occluded dominant right coronary artery Drug-eluting stent deployment to the ostial proximal mid and distal left main artery extending into the proximal LAD Drug-eluting stent deployment to the proximal and mid chronically occluded LAD INDICATION New onset angina, Worsening ejection fraction, Chronically occluded right coronary artery, Chronically occluded LAD, Systolic congestive heart failure, Informed consent was obtained prior to the procedure. COMPLICATIONS NONE Estimated Blood Loss: LESS THAN 10 ML TECHNIQUE One percent lidocaine used to anesthetize the right anterior aspect of the wrist. The right radial artery was accessed via the Seldinger technique. A 6 Polish sheath was placed in the right radial artery. 2.5 mg of Verapamil, 800 mcg of nitroglycerin, 1mg Lidocaine and 5000 U Heparin were given through the arterial sheath. The JL3 catheter was also used to perform selective coronary angiogram. There was significant interval progression of coronary disease since the 2017 cardiac catheterization. The right coronary artery was now chronically occluded and the once chronically occluded LAD had minimally recanalized with distal [id number] collaterals to the right coronary artery. Therapeutic Was administered giving a therapeutic ACT and the guide catheter was placed in the right coronary artery followed by Choice PT extra-support wire pushed through the chronic occlusion. A 2.5 mm balloon was used to predilate the occlusion of the right coronary artery. Following this a 3.5 x 38 mm [place] frontier stent was placed in the mid right coronary artery extending back proximally and deployed at 20 tesha. An additional 4 mm x 12 mm [place] frontier stent was placed proximal to the for stent yet still overlapping and extending back into the right coronary cusp and deployed at 20 tesha. The balloon was then dilated to 22 tesha to post dilate the ostium. CAROL 0 flow was present at the beginning of the procedure with CAROL-3 flow at the end of the procedure. Following this the catheter was placed in the left main artery and the Choice PT extra-support wire was placed through the occlusion and into the distal LAD. A guide liner was advanced after a 2.5 mm balloon cannot be pushed through the occlusion. With the assistance of the guide liner a 2.5 x 20 mm noncompliant balloon was able to be deployed at 20 tesha to open the occlusion. Following this a 2.75 x 38 mm [place] frontier stent was placed proximal to the second diagonal artery and extending back into the proximal LAD and deployed at 20 tesha. An additional 4 mm x 15 mm [place] frontier stent was placed proximal to the stent extending back into the left coronary cusp and deployed at 20 tesha. Excellent angiographic results were obtained. CAROL-3 flow was present down the left main artery before and after the procedure with CAROL I flow being present down the LAD before the procedure and CAROL-3 flow at the end of the procedure. At the end the procedure the apparatus was removed the sheath was removed and hemostasis was achieved using TR banding patient was transferred to the postop putting in stable condition ANGIOGRAPHIC RESULTS The left main artery Has proximal and distal diffuse 30% stenosis The left anterior descending artery Has an ostial calcified eccentric stenosis creating an 80% stenosis. Distal to the second septal corporate account executive the LAD is subtotally occluded and then gives rise to a first diagonal artery. Following revascularization there was CAROL-3 flow with wide patency of the ostial proximal mid and distal LAD The circumflex artery Is large nondominant with 10 to 20% proximal stenosis The right coronary artery Dominant and occluded immediately distal to the RV marginal The WOODY ventriculogram reveals Not performed The left ventricular end-diastolic pressure Not measured IMPRESSION Critical coronary disease as described above Chronic occlusion of the right coronary with successful percutaneous revascularization reducing the 100% occlusion to 0% with 2 contiguous drug-eluting stents as described above Successful stenting of a chronically occluded proximal to mid LAD 100% occlusion reduced to 0% with 1 drug-eluting stent Successful stenting of the ostial left main artery extending into the proximal LAD angiographically mild to moderate disease reduced to 0% with 1 drug-eluting stent PLAN 1. Dual antiplatelet therapy 2. LDL less than 55 achieved high intensity statin 3. Patient has LV dysfunction and received copious contrast today and should be admitted overnight and monitored for contrast nephropathy while giving IV fluids for systolic congestive heart failure 4. Patient should be admitted rather than observed due to the complex nature of the procedure the comorbidities and the closer observation required 5. Standard therapy for systolic heart failure with GDMT 6. Avoidance of tobacco products 7. Cardiac rehabilitation Electronically signed by : Vitaly Turner MD 01/26/2025 10:34:58
[2025-01-26 08:24] LABS: Basophils # 0.1 K/mm3 (0-0.2); Basophils % 0.8 % (0.1-2.0); Eosinophils # 0.3 Kmm3 (0.0-0.4); Eosinophils % 3.9 % (0.1-12.0); Hematocrit 43.6 % (42.0-52.0); Hemoglobin 14.6 g/dL (14.1-18.0); Immature Granulocytes # 0.02 10^3uL; Immature Granulocytes % 0.3 %; Lymphocytes # 2.2 K/mm3 (0.7-4.5); Mean Corpuscular HGB Conc 33.5 g/dL (31.8-35.4); Mean Corpuscular Hemoglobin 30.7 pg (27.0-31.2); Mean Corpuscular Volume 91.6 fl (80-94); Mean Platelet Volume 10.6 fl (7.4-10.4); Monocytes # 0.5 K/mm3 (0.1-1.0); Monocytes % 7.5 % (1.7-9.3); Neutrophils # 4.1 K/mm3 (1.8-7.8); Neutrophils % 57.5 % (37.0-80.0); Nucleated Red Blood Cells # 0 10^3/uL; Nucleated Red Blood Cells % 0 %; Platelet Count 230 K/mm3 (142-424); Red Blood Count 4.76 M/mm3 (4.60-6.20); Red Cell Distribution Width 12.5 % (11.5-17.5); White Blood Count 7.2 K/mm3 (4.8-10.8)
[2025-01-26 08:29] LABS: Anion Gap 7.5 mEq/L (5-15); Blood Urea Nitrogen 11 mg/dl (9-20); Carbon Dioxide 30 mmol/L (22.0-30.0); Chloride 106 mmol/L (98-107); Creatinine Clearance Estimated 96 mL/min (50-200); Estimated Glomerular Filt Rate 87 ml/min (>60); GFR (African American) 105 ML/MIN (>60); Glucose 129 mg/dl (74-100); Potassium 4.5 mmoL/L (3.5-5.1); Sodium 139 mmol/L (136-145)
[2025-01-26] MEDS: LIDOCAINE 1% 10ML MDV 10 ML IJ (09:12)
[2025-01-26] MEDS: HEPARIN 1,000 UNITS/500ML NS (CATH LAB) 3000 UNIT IV (09:12)
[2025-01-26] MEDS: 0.9 % SODIUM CHLORIDE 500 ML 25 ML IV (09:12)
[2025-01-26] MEDS: HEPARIN 1,000 UNITS/ML 10ML VIAL (CATH LAB) 5000 UNIT IV ×2 (09:13→09:38)
[2025-01-26] MEDS: diphenhydrAMINE 50MG/ML VIAL 50 MG IV (09:13)
[2025-01-26] MEDS: NITROGLYCERIN 800MCG/8ML SYR (CATH LAB) 800 MCG IA (09:14)
[2025-01-26] MEDS: VERAPAMIL 2.5MG/ML 2ML VIAL 2.5 MG IV (09:14)
[2025-01-26] MEDS: MIDAZOLAM HCL 1MG/ML 5ML VIAL 1 MG IV (10:03)
[2025-01-26] MEDS: FENTANYL 100MCG/2ML VIAL 50 MCG IV (10:04)
[2025-01-26] MEDS: PRASUGREL 10MG TAB 60 MG PO (10:14)
--- NOTE | 2025-01-26 10:15 | ECG_ITS ---
APPROVED REPORT Exam: Resting ECG HR:60 bpm ECG Measurements Heart Rate 60 AXES NE 227 P -72 QRSd 128 QRS -58 QT 413 T -32 QTc 414 Conclusion ELECTRONIC ATRIAL PACEMAKER LEFT ANTERIOR FASCICULAR BLOCK [QRS AXIS <= -45, QR IN I, RS IN II] ANTEROSEPTAL MYOCARDIAL INFARCTION , PROBABLY OLD [40+ ms Q WAVE IN V1-V4] ABNORMAL ECG UNCONFIRMED REPORT Electronically signed by : Enzo Fernandez MD 01/27/2025 14:36:11
--- NOTE | 2025-01-26 10:16 | HMH.PHAINT1 ---
Pharmacy Intervention Comments: MEDICATION RECONCILIATION COMPLETED ON PATIENT USING EXTERNAL FILL HISTORY FROM PHARMACY AND LIST FROM CARDIOLOGY OFFICE. -NILS SHULTZ, EMORYD
--- NOTE | 2025-01-26 11:17 | PC.NURSE ---
arrived by antoniaer from medical laboratory technical officer
--- NOTE | 2025-01-26 13:03 | EXP.HP ---
History of Present Illness *Admission Date: 01/26/25 *Reason for visit:: Monitoring after left heart cath *History of present illness: Mr. Goel is a 59 year old patient of [facility], with an extensive cardiac history. He has a 15 year history of CAD and CHF (HFrEF). He had an outaptient left heart cath today and had multiple stents placed. Dr. Turner called me and asked if I could admit patient for monitoring, IVF due to contrast that was given and repeat labs in the morning. [facility] Disclaimer: The information contained in this section may have been updated after the patient was seen, as this information can be updated by other users. Medical History (Updated 01/26/25 @ 13:22 by Ji Salinas MD) HFrEF (heart failure with reduced ejection fraction) Equinus contracture of ankle Abnormal cardiovascular stress test Atypical angina Dyspnea Palpitations Myocardial infarction HTN (hypertension), benign Ischemic cardiomyopathy CAD (coronary artery disease) Automatic implantable cardiac defibrillator in situ Hyperlipidemia Hypertensive disorder Coronary arteriosclerosis Surgical History (Updated 01/26/25 @ 13:21 by Ji Salinas MD) S/P implantation of automatic cardioverter/defibrillator (AICD) History of colonoscopy History of esophagogastroduodenoscopy (EGD) H/O hernia repair History of heart artery stent Family History Hyperlipidemia Heart attack Stroke Social History Smoking Status: Former smoker tobacco type: cigarettes packs per day: 1 alcohol intake: former substance use type: denies use current occupational status: employed Travel in the last 8 weeks?: None household members: spouse and children housing: house current occupational exposures/hazards: Yes caffeine: Yes Have you lived/traveled outside [place] in past 30 days?: No Contact w/someone who lives/traveled outside US past 30 days?: No Exposure to someone with infectious disease in past 14 days?: No Do you have a fever (greater than 100.4 F or 38 C)?: No Have you tested positive for COVID-19?: No Exposed to someone with COVID-19 in past 14 days?: No Do you have a sore throat?: No Do you have a cough?: No Do you have any weakness?: No Do you have any diarrhea?: No Are you experiencing any unusual bleeding?: No Do you have any muscle aches/pain?: No Do you have any abdominal pain?: No Are you experiencing loss of taste or smell?: No Other Medical History Have you received the Flu Vaccine for this season: No Have you received the Pneumonia Vaccine: No Review of Systems Constitutional Constitutional: Denies chills and Denies fever(s) ENT Ears, Nose, Mouth, and Throat: Denies dizziness *Cardiovascular Cardiovascular: Denies chest pain and Denies dyspnea *Respiratory Respiratory: Denies dyspnea *Gastrointestinal Gastrointestinal: Denies abdominal pain *Genitourinary Genitourinary: Denies difficulty urinating *Musculoskeletal Musculoskeletal: Denies arthralgias *Neurologic Neurologic: Denies dizziness Meds Home Medications and Allergies Home Medications ?Medication ?Instructions ?Recorded ?Confirmed ?Type aspirin 81 mg tablet 81 mg PO DAILY 10/27/22 01/26/25 History levothyroxine 25 mcg tablet 25 mcg PO DAILY 10/27/22 01/26/25 History atorvastatin 80 mg tablet 80 mg PO DAILY 01/26/25 01/26/25 History carvedilol 6.25 mg tablet 6.25 mg PO BID 01/26/25 01/26/25 History furosemide 40 mg tablet (Lasix) 40 mg PO DAILYP PRN Edema 01/26/25 01/26/25 History prasugrel HCl 10 mg tablet 10 mg PO DAILY #30 tabs 01/26/25 Rx (Effient) sacubitril 24 mg-valsartan 26 mg 1 tab PO BID 01/26/25 01/26/25 History tablet (Entresto) spironolactone 25 mg tablet 25 mg PO BID 01/26/25 01/26/25 History New Prescriptions to Start Prescriptions: prasugrel HCl [Effient] Vitaly Turner Allergies Allergy/AdvReac Type Severity Reaction Status Date / Time codeine (CODEINE) Allergy Intermediate Verified 01/16/25 14:56 Exam Data for Last 24 hours Vital signs and Labs for Last 24 Hours: Pulse Resp BP Pulse Ox O2 Del Method 60 20 112/70 96 Room Air 01/26/25 11:10 01/26/25 11:10 01/26/25 11:10 01/26/25 11:10 01/26/25 11:10 Laboratory Results - last 24 hr 01/26/25 08:12: WBC 7.2, RBC 4.76, Hgb 14.6, Hct 43.6, MCV 91.6, MCH 30.7, MCHC 33.5, RDW 12.5, Plt Count 230, MPV 10.6 H, Neut % (Auto) 57.5, Lymph % (Auto) 30.0, [place] % (Auto) 7.5, Eos % (Auto) 3.9, Baso % (Auto) 0.8, Neut # (Auto) 4.1, Lymph # (Auto) 2.2, [place] # (Auto) 0.5, Eos # (Auto) 0.3, Baso # (Auto) 0.1, Sodium 139, Potassium 4.5, Chloride 106, Carbon Dioxide 30, Anion Gap 7.5, BUN 11, Creatinine 0.90, Estimated Creat Clear 96, Estimated GFR 87, Est GFR ( Amer) 105, Glucose 129 H, Calcium 9.0 01/26/25 08:16: Hemoglobin A1c 6.0 I & O for Last 24 hours: Intake & Output 01/23/25 01/24/25 01/25/25 01/26/25 23:59 23:59 23:59 23:59 Weight 297 lb Constitutional Constitutional: no acute distress *Routine HEENT Exam Head: Present normocephalic Eye: Present EOMI and PERRL ENT: Present mucous membranes moist *Routine Neck Exam Neck: Present supple; Absent lymphadenopathy *Routine Respiratory Exam Respiratory: Present CTA bilaterally *Routine Cardiovascular Exam Cardiovascular: Present RRR *Routine Abdominal Exam Abdominal: Present soft and normoactive bowel sounds; Absent tenderness *Routine Rectal Exam Rectal:: deferred *Routine Genitalia Exam Genitalia:: deferred *Routine Extremities Exam Extremities: Absent cyanosis, clubbing or edema *Routine Skin Exam Skin: Present warm; Absent rash *Routine Neurological Exam Neurological: Present alert and oriented X3 Assessment and Plan *Assessment and plan (1) HFrEF (heart failure with reduced ejection fraction): Status: Acute Category: Medical Code(s): I50.20 - Unspecified systolic (congestive) heart failure (2) History of heart artery stent: Status: Acute Category: Surgical Code(s): Z95.5 - Presence of coronary angioplasty implant and graft (3) CAD (coronary artery disease): Status: Chronic Qualifiers: Associated angina: without angina Coronary Disease-Associated Artery/Lesion type: [place] artery [place] vs. transplanted heart: wainwright heart Qualified Code(s): I25.10 - Atherosclerotic heart disease of [place] coronary artery without angina pectoris Category: Medical Code(s): I25.10 - Atherosclerotic heart disease of [place] coronary artery without angina pectoris (4) Ischemic cardiomyopathy: Status: Chronic Category: Medical Code(s): I25.5 - Ischemic cardiomyopathy (5) Automatic implantable cardiac defibrillator in situ: Status: Chronic Category: Medical Code(s): Z95.810 - Presence of automatic (implantable) cardiac defibrillator (6) Hyperlipidemia: Status: Chronic Qualifiers: Hyperlipidemia type: mixed hyperlipidemia Qualified Code(s): E78.2 - Mixed hyperlipidemia Category: Medical Code(s): E78.5 - Hyperlipidemia, unspecified (7) Hypertensive disorder: Status: Chronic Qualifiers: Hypertension type: essential hypertension Qualified Code(s): I10 - Essential (primary) hypertension Category: Medical Code(s): I10 - Essential (primary) hypertension Plan Admit for observation, start IVF at 50 mL/hr, cardiac diet, recheck labs in the morning.
[2025-01-26] MEDS: Dex 5% in 0.45% NaCl 1,000 ML 50 ML IV (14:00)
[2025-01-26] MEDS: IOPAMIDOL-370 (76%);100ML BOTTLE 210 ML IV (14:18)
[2025-01-26 14:20] LABS: CATHL Activated Clotting Time 393 SEC (74-125)
--- NOTE | 2025-01-26 17:49 | PC.NURSE ---
PATIENT IS ALERT AND ORIENTED X4, DENIES CHEST PAIN OR SOA, VSS. RADIAL BAND REMOVED AND GAUZE/TEGADERM APPLIED, NO DRAINAGE NOTED.
[2025-01-27] VITALS: BP 106/57; PULSE 70; PULSE 72; RESP 16; TEMP 36.4; O2SAT 96
[2025-01-27 04:00] VITALS: BP 118/68; PULSE 70; PULSE 76; RESP 14; TEMP 36.8; O2SAT 97; BMI 41.3
[2025-01-27 07:04] LABS: Basophils # 0.1 K/mm3 (0-0.2); Basophils % 0.6 % (0.1-2.0); Eosinophils # 0.2 Kmm3 (0.0-0.4); Eosinophils % 2.3 % (0.1-12.0); Hematocrit 40.1 % (42.0-52.0); Hemoglobin 13.7 g/dL (14.1-18.0); Immature Granulocytes # 0.02 10^3uL; Immature Granulocytes % 0.2 %; Lymphocytes % 21.9 % (10-50); Mean Corpuscular HGB Conc 34.2 g/dL (31.8-35.4); Mean Corpuscular Hemoglobin 30.9 pg (27.0-31.2); Mean Corpuscular Volume 90.3 fl (80-94); Mean Platelet Volume 10.8 fl (7.4-10.4); Monocytes # 0.6 K/mm3 (0.1-1.0); Monocytes % 6.3 % (1.7-9.3); Neutrophils # 6.2 K/mm3 (1.8-7.8); Neutrophils % 68.7 % (37.0-80.0); Nucleated Red Blood Cells # 0 10^3/uL; Nucleated Red Blood Cells % 0 %; Platelet Count 204 K/mm3 (142-424); Red Blood Count 4.44 M/mm3 (4.60-6.20); Red Cell Distribution Width 12.6 % (11.5-17.5); Red Cell Distribution Width-SD 41.6 fL
[2025-01-27 07:13] LABS: Anion Gap 8.1 mEq/L (5-15); Blood Urea Nitrogen 8 mg/dl (9-20); Calcium 8.7 mg/dl (8.4-10.2); Carbon Dioxide 26 mmol/L (22.0-30.0); Chloride 108 mmol/L (98-107); Creatinine Clearance Estimated 120 mL/min (50-200); Estimated Glomerular Filt Rate 116 ml/min (>60); GFR (African American) 141 ML/MIN (>60); Glucose 120 mg/dl (74-100); Potassium 4.1 mmoL/L (3.5-5.1); Sodium 138 mmol/L (136-145)
[2025-01-27 08:00] VITALS: BP 121/70; PULSE 75; PULSE 80; RESP 20; TEMP 36.8; O2SAT 96
[2025-01-27] MEDS: PRASUGREL 10MG TAB 10 MG PO (08:45)
[2025-01-27] MEDS: ASPIRIN EC 81MG TABLET 81 MG PO (08:46)
[2025-01-27] MEDS: EMPAGLIFLOZIN 10MG TABLET 10 MG PO (08:46)
--- NOTE | 2025-01-27 11:40 | P.PN_ITS ---
Subjective *Date: 01/27/25 *Time: 11:40 Interval history: Anxious to be discharged. BUN=8, cret=0.7, GFR 116. Dual antiplatelet therapy. Follow-up with cardiology in one week. To see Dr. Salinas in 2 weeks. Medical Exam Vital signs and Labs for Last 24 Hours: Vital Signs Temp Pulse Pulse Resp BP Pulse Ox O2 Del Method 01/27/25 10:52 Room Air 01/27/25 09:00 Room Air 01/27/25 08:00 98.2 F 75 20 121/70 96 Room Air 01/27/25 08:00 80 01/27/25 07:31 Room Air 01/27/25 06:32 Room Air 01/27/25 05:00 Room Air 01/27/25 04:00 98.2 F 76 14 118/68 97 Room Air 01/27/25 04:00 70 01/27/25 03:00 Room Air 01/27/25 01:00 Room Air 01/27/25 00:00 97.5 F L 72 16 106/57 L 96 Room Air 01/27/25 00:00 70 01/26/25 23:00 Room Air 01/26/25 21:00 Room Air 01/26/25 20:00 65 01/26/25 20:00 Room Air 01/26/25 19:43 98.1 F 69 16 131/70 97 Room Air 01/26/25 18:26 Room Air 01/26/25 17:25 97.7 F 61 20 118/65 100 Room Air 01/26/25 17:00 Room Air 01/26/25 16:25 97.8 F 66 20 121/72 100 Room Air 01/26/25 16:00 60 01/26/25 15:25 97.9 F 66 20 122/64 99 Room Air 01/26/25 15:00 Room Air 01/26/25 14:25 97.7 F 63 20 124/63 99 Room Air 01/26/25 13:25 97.7 F 66 20 129/70 99 Room Air 01/26/25 13:00 Room Air 01/26/25 12:25 97.9 F 62 20 118/68 99 Room Air 01/26/25 12:00 60 01/26/25 11:55 97.9 F 60 20 119/69 99 Room Air Intake and Output 01/26/25 01/27/25 01/27/25 19:59 03:59 11:59 Intake Total 700 / 1450 300 / 1450 450 / 1450 Output Total 0 / 0 0 / 0 0 / 0 Balance 700 / 1450 300 / 1450 450 / 1450 Intake: Intake, Oral Amount 700 / 1150 450 / 1150 Intake, Total IV Amount 300 / 300 Dex 5% in 0.45% NaCl 1,000 ml @ 300 / 300 50 mls/hr IV .Q20H [facility] Rx#: [id number] Output: Output, Urine Amount 0 / 0 0 / 0 0 / 0 Other: Number of Unmeasured Voids 1 1 1 Weight 295 lb 3.2 oz Patient Weight 01/27/25 11:59 Weight 295 lb 3.2 oz Laboratory Results - last 24 hr 01/26/25 09:43: Activated Clotting Time 393 H* 01/27/25 06:29: WBC 9.0, RBC 4.44 L, Hgb 13.7 L, Hct 40.1 L, MCV 90.3, MCH 30.9, MCHC 34.2, RDW 12.6, Plt Count 204, MPV 10.8 H, Neut % (Auto) 68.7, Lymph % (Auto) 21.9, [place] % (Auto) 6.3, Eos % (Auto) 2.3, Baso % (Auto) 0.6, Neut # (Auto) 6.2, Lymph # (Auto) 2.0, [place] # (Auto) 0.6, Eos # (Auto) 0.2, Baso # (Auto) 0.1, Sodium 138, Potassium 4.1, Chloride 108 H, Carbon Dioxide 26, Anion Gap 8.1, BUN 8 L D, Creatinine 0.70 D, Estimated Creat Clear 120, Estimated GFR 116, Est GFR ( Amer) 141 D, Glucose 120 H, Calcium 8.7 I & O for Labs for Last 24 Hours: Intake & Output 01/24/25 01/25/25 01/26/25 01/27/25 11:59 11:59 11:59 11:59 Intake Total 1450 / 1450 Output Total 0 / 0 Balance 1450 / 1450 Weight 297 lb 295 lb 3.2 oz Constitutional: Present no acute distress and obese Head: Present normocephalic Neck: Present normal inspection Respiratory: Present CTA bilaterally; Absent rhonchi, stridor or wheezes Cardiac: Present Reg Rate and Rhythm (Distant heart sounds) GI: Present soft; Absent distention, tenderness, guarding or mass Rectal (male): Present deferred (male): Present deferred Extremities: Present edema (Trace) Skin: Present intact; Absent cyanosis Neuro: Present alert and oriented x 3 Assessment and Plan *Assessment and plan (1) History of heart artery stent: Status: Acute Category: Surgical Code(s): Z95.5 - Presence of coronary angioplasty implant and graft (2) HFrEF (heart failure with reduced ejection fraction): Status: Acute Category: Medical Code(s): I50.20 - Unspecified systolic (congestive) heart failure (3) CAD (coronary artery disease): Status: Chronic Qualifiers: Associated angina: without angina Coronary Disease-Associated Artery/Lesion type: [place] artery [place] vs. transplanted heart: [place] heart Qualified Code(s): I25.10 - Atherosclerotic heart disease of [place] coronary artery without angina pectoris Category: Medical Code(s): I25.10 - Atherosclerotic heart disease of [place] coronary artery without angina pectoris (4) Ischemic cardiomyopathy: Status: Chronic Category: Medical Code(s): I25.5 - Ischemic cardiomyopathy (5) Automatic implantable cardiac defibrillator in situ: Status: Chronic Category: Medical Code(s): Z95.810 - Presence of automatic (implantable) cardiac defibrillator (6) Hypertensive disorder: Status: Chronic Qualifiers: Hypertension type: essential hypertension Qualified Code(s): I10 - Essential (primary) hypertension Category: Medical Code(s): I10 - Essential (primary) hypertension (7) Hyperlipidemia: Status: Chronic Qualifiers: Hyperlipidemia type: mixed hyperlipidemia Qualified Code(s): E78.2 - M ixed hyperlipidemia Category: Medical Code(s): E78.5 - Hyperlipidemia, unspecified Plan Discharge. Follow-up as described above. Aspirin and Effient.
--- NOTE | 2025-01-30 15:24 | CARE MANAGER ---
Called and spoke with patient regarding recent discharge. He stated that he is doing well, has started new medication and voiced no concerns at time of call.
--- NOTE | 2025-01-31 08:56 | P.DS_ITS ---
General Admission date:: 01/26/25 Discharge date: 01/27/25 HPI HPI HPI: Mr. Goel is a 59 year old patient of [facility], with an extensive cardiac history. He has a 15 year history of CAD and CHF (HFrEF). He had an outaptient left heart cath today and had multiple stents placed. Dr. Turner called me and asked if I could admit patient for monitoring, IVF due to contrast that was given and repeat labs in the morning. Hospital Course Hospital Course Hospital Course: The patient was admitted for observation and started on IV fluids and a cardiac diet. By 01/27/2025, his labs were stable and he was able to be discharged on aspirin and Effient. He will follow-up with Cardiology in [address] Salinas in 2 weeks. Exam Data for Last 24 hours Vital signs and Labs for Last 24 Hours: Temp Pulse Resp BP Pulse Ox O2 Del Method 98.2 F 75 20 121/70 96 Room Air 01/27/25 08:00 01/27/25 08:00 01/27/25 08:00 01/27/25 08:00 01/27/25 08:00 01/27/25 10:52 I & O for Last 24 hours: Intake & Output 01/28/25 01/29/25 01/30/25 01/31/25 11:59 11:59 11:59 11:59 Output Total 0 / 0 Balance 0 / 0 Narrative: Constitutional Constitutional: no acute distress *Routine HEENT Exam Head: Present normocephalic Eye: Present EOMI and PERRL ENT: Present mucous membranes moist *Routine Neck Exam Neck: Present supple; Absent lymphadenopathy *Routine Respiratory Exam Respiratory: Present CTA bilaterally *Routine Cardiovascular Exam Cardiovascular: Present RRR *Routine Abdominal Exam Abdominal: Present soft and normoactive bowel sounds; Absent tenderness *Routine Rectal Exam Rectal:: deferred *Routine Genitalia Exam Genitalia:: deferred *Routine Extremities Exam Extremities: Absent cyanosis, clubbing or edema *Routine Skin Exam Skin: Present warm; Absent rash *Routine Neurological Exam Neurological: Present alert and oriented X3 DS: Diagnosis Discharge Diagnosis (1) History of heart artery stent: Status: Acute Code(s): Z95.5 - Presence of coronary angioplasty implant and graft (2) HFrEF (heart failure with reduced ejection fraction): Status: Acute Code(s): I50.20 - Unspecified systolic (congestive) heart failure (3) CAD (coronary artery disease): Status: Inactive Code(s): I25.10 - Atherosclerotic heart disease of [place] coronary artery without angina pectoris Qualifiers: Associated angina: without angina Coronary Disease-Associated [place]/Lesion type: [place] artery [place] vs. transplanted heart: [place] heart Qualified Code(s): I25.10 - Atherosclerotic heart disease of [place] coronary artery without angina pectoris (4) Ischemic cardiomyopathy: Status: Chronic Code(s): I25.5 - Ischemic cardiomyopathy (5) Automatic implantable cardiac defibrillator in situ: Status: Chronic Code(s): Z95.810 - Presence of automatic (implantable) cardiac defibrillator (6) Hypertensive disorder: Status: Chronic Code(s): I10 - Essential (primary) hypertension Qualifiers: Hypertension type: essential hypertension Qualified Code(s): I10 - Essential (primary) hypertension (7) Hyperlipidemia: Status: Chronic Code(s): E78.5 - Hyperlipidemia, unspecified Qualifiers: Hyperlipidemia type: mixed hyperlipidemia Qualified Code(s): E78.2 - Mixed hyperlipidemia Meds Home Medications and Allergies Home Medications ?Medication ?Instructions ?Recorded ?Confirmed ?Type aspirin 81 mg tablet 81 mg PO DAILY 10/27/22 01/26/25 History levothyroxine 25 mcg tablet 25 mcg PO DAILY 10/27/22 01/26/25 History atorvastatin 80 mg tablet 80 mg PO DAILY 01/26/25 01/26/25 History carvedilol 6.25 mg tablet 6.25 mg PO BID 01/26/25 01/26/25 History furosemide 40 mg tablet (Lasix) 40 mg PO DAILYP PRN Edema 01/26/25 01/26/25 History prasugrel HCl 10 mg tablet 10 mg PO DAILY #30 tabs 01/26/25 Rx (Effient) sacubitril 24 mg-valsartan 26 mg 1 tab PO BID 01/26/25 01/26/25 History tablet (Entresto) spironolactone 25 mg tablet 25 mg PO BID 01/26/25 01/26/25 History empagliflozin 10 mg tablet 10 mg PO DAILY #30 tabs 01/27/25 Rx (Jardiance) New Prescriptions to Start Prescriptions: empagliflozin [Jardiance] Zainab Ayala prasugrel HCl [Effient] Vitaly Turner Allergies Allergy/AdvReac Type Severity Reaction Status Date / Time codeine (CODEINE) Allergy Intermediate Verified 01/16/25 14:56 Discharge Plan Disposition Patient Disposition: Home, Self-Care Follow up Plan Follow up with: Ji Salinas MD [Primary Care Provider] - 01/27/25 11:50 am Vitaly Turner MD [Staff Physician] - 02/01/25 1:45 pm Prescriptions/Medication Reconciliation: New prasugrel HCl [Effient] 10 mg Tablet 10 mg PO DAILY Qty: 30 6RF Jardiance 10 mg Tablet 10 mg PO DAILY Qty: 30 1RF Continued levothyroxine 25 mcg tablet 25 mcg PO DAILY Patient Comments: TAKE 1 TABLET BY MOUTH EVERY DAY aspirin 81 mg Tablet 81 mg PO DAILY furosemide [Lasix] 40 mg tablet 40 mg PO DAILYP PRN (Reason: Edema) atorvastatin 80 mg tablet 80 mg PO DAILY carvedilol 6.25 mg tablet 6.25 mg PO BID spironolactone 25 mg tablet 25 mg PO BID Entresto 24-26 mg tablet 1 tab PO BID Problem Reconciliation Problems Reviewed?: Yes Patient Discharge Instructions ACTIVITY: Continue current activity DIET: low fat, low cholesterol Patient Instructions: DI for Cardiac Catheterization, DI for Coronary Stenting, DI for Surgical Site Infection, DI for Moderate Sedation Print Language: Armenian Providers Primary Care Provider: Ji Salinas Admit Provider: Vitaly Turner Attending Provider: Ji Salinas
== END 2025-01-27 12:54 | disposition home or self-care (01) ==
LOC: 2ND 10:41
PROVIDERS: Admitting Provider Internal Medicine; PCP Family Medicine; Visit Provider Family Medicine
PROC: 4A023N7 Measurement of Cardiac Sampling and Pressure, Left Heart, Percutaneous Approach (ICD-10-PCS; CPT 93452; principal; 2025-01-26 08:45)
DX: I25.118 Atherosclerotic heart disease of native coronary artery with other forms of angina pectoris (principal); I25.5 Ischemic cardiomyopathy; I25.82 Chronic total occlusion of coronary artery; I50.20 Unspecified systolic (congestive) heart failure; I11.0 Hypertensive heart disease with heart failure; Z87.891 Personal history of nicotine dependence; Z88.5 Allergy status to narcotic agent
CPT/HCPCS: 36415; 80048; 83036; 85025; 85347; 92928; 93005; 99152; 99153; C1725; C1760; C1769; C1874; C9600; G0378; J1200; J1644; J3010; Q9967

== ENCOUNTER 2025-02-12 09:20 | Emergency (ER) | payer BC, SELFPAY ==
--- OUTSIDE RECORDS SUMMARY | 2024-04-26 05:15 | XMS_ITS ---
[facility] Organization [facility] Address [address] [facility] [address] [place] [id number] Care Team Providers Care Foreign Food Specialty Cook Name Role Phone Ji Salinas Primary Care Provider [phone] Allergies Allergen (clinical drug ingredient) Drug/Non Drug Allergy documented on EMR Reaction Allergy Type Onset Date Status codeine Codeine Unknown Drug Allergy Active Results Component Value Reference Range Notes Glucose (In-House) Reviewed date:04/27/2024 08:34:04 AM Interpretation:144 Performing Lab: Notes/Report: 144 blood glucose 144 74 - 106 mg/dL Glycohemoglobin A1c (in hous e) Reviewed date:04/27/2024 08:34:04 AM Interpretation:5.7 Performing Lab: Notes/Report: 5.7 glycohemoglobin 5.7% 5 - 6.5 % P-Vitamin D 25-Hydroxy Reviewed date:04/27/2024 08:34:04 AM Interpretation:24.2 Performing Lab: Notes/Report: Test performed by [employer] [facility]0 [facility] , [address], [place] [address] Remigio Baker MD, Rental Counter Clerk CLIA: [id number] Vitamin D 25-Hydroxy 24.2 30.0-100.0 ng/mL Interpretation of Vitamin D 25 OH: < 20 ng/mL - Deficiency 20 - 29 ng/mL - Insufficiency 30 - 100 ng/mL - Sufficiency > 100 ng/mL - Super-therapeutic- toxicity may occur above this level. Clinical correlation required. REASON FOR VISIT checkup Medications Medication SIG (Take, Route, Frequency, Duration) Notes Start Date End Date Status Carvedilol 3.125 MG 1 tab(s) orally 2 ti mes a day Active Spironolactone 25 MG TAKE 1 TABLET BY [facility] TWICE DAILY for 30 Active Levothyroxine Sodium 25 MCG 1 tab(s) ora lly once a day for 90 days Active Furosemide 40 MG 1 tablet Orally Once a day as needed for 90 days 04/20/2023 Active Atorvastatin Calcium 40 MG 1 tab(s) oral ly once a day for 90 days Active Sildenafil Citrate 20 MG 1 to 5 tablet O rally Once a day as needed 04/20/2023 Active Entresto 24-26 MG 1 tab(s) orally 2 ti mes a day for 90 days Active Darlin Aspirin EC Low Dose 81 MG 1 tab(s) orally once a day Active Vitamin D3 125 MCG (5000 UT) 1 cap(s) or ally once a day 01/05/2018 Active Vital Signs Blood pressure systolic 114 mm Hg 04/26/20 Blood pressure diastolic 72 mm Hg 024 Heart Rate 71 /min 04/26/2024 Height 71 in 04/26/2024 Weight 294.8 lbs 04/26/2024 BMI 41.11 kg/m2 04/26/2024 Encounters Encounter Location Date Provider Diagnosis [facility] [address] [facility] 36 [facility] [address] [place] [phone] 04/26/2024 Ji Salinas Chronic congestive h eart failure, unspecified congestive heart failure type I50.9 ; Vitamin D deficiency E55.9 and Hyperglycemia R73.9 Assessments Encounter Date Diagnosis (ICD Code) Assessment Notes Treatment Notes Treatment Clinical Notes Section Notes 04/26/2024 Chronic congestive heart failure, unspecified congestive heart failure type (ICD-10 - I50.9) 04/26/2024 Vitamin D deficiency (ICD-10 - E55.9) 04/26/2024 Hyperglycemia (ICD-10 - R73.9) Plan Of Treatment Medication Medication Name Sig Start Date Stop Date Notes Entresto 24-26 MG 1 tab(s) orally 2 ti mes a day for 90 days Next Appt Details Follow Up: 6 Months, Reason: Provider Name:Ji Zaldivar ry, 04/25/2025 09:30:00 AM, [address] [facility], [address], [place], [phone], Progress Notes * MARY DIOP:1965 (59 yo M)Acc No.[id number]:04/26/2024 Progress Notes Patient: LILA GUERRA Provider: Julianne Salinas M.D. :1965 A ge:58 Y S ex:Male Date:04/26/2024 Address:[address] [place] [address] [place], [place], [id number] Subjective: * Chief Complaints: * 1 . Checkup. * HPI: C ardiology: 58 year old male presents with c/o Blood Pressure Elevated P t here to f/u on hypertension, states he is doing well and does not have any concerns. c/o Hyperlipidemia P t is not fasting today. E ndocrinology: c/o Hypothyroidism P t here to f/u. * ROS: D ERMATOLOGY: no R krys. n o H americo. G ASTROENTEROLOGY: no N ausea. n o V omiting. U ROLOGY: no D ifficulty urinating. n o B lood in urine. * Medical History: C oronary Artery Disease s/p [place] with stent 11/11, Hypertension, Hyperlipidemia, 30% EF on cath 03/2010, 41% EF on cardiolyte GXT 05/2014, 35-40% EF 03/2016, [place] 07/20/17 - Dr. Turner, Left Heart Cath Jul 2017, EF 20-25%, AICD placed., Cardiomyopathy. * Surgical History: H ernia Repair 2003, LT Leg Fatty Tumor Removal before 1999, Stent RT Side of Heart 11/10/2007, Heart Cath 03/2010, Defibulator 07/22/2017, Colonoscopy 2017, EGD with esophageal dilitation 2017. * Hospitalization/Major Diagno stic Procedure: M I- H 07/20-, Heart Shock- [facility] 09/04/2017, Chest Pain- [facility] 10/19/2017, SOA- [facility] 09/03-. * Family History: F ather: alive 67 yrs. M other: alive 63 yrs. 2 brother(s) , 1 sister(s) . 1 son(s) , 2 daughter(s) . . * Social History: C URRENT TOBACCO USE S moking Status: Patient does NOT smoke. C affeine: yes, frequency:daily. Exercise: yes. Home smoke detector use: yes. Marital Status: . Past smoking status: no. Recreational drug use: no. Alcohol: socially, Type: , Frequency: ,Years: , Determination:. * Medications: Domo Saeed Aspirin EC Low Dose 81 MG Tablet Delayed Release 1 tab(s) orally once a day , Taking Vitamin D3 125 MCG (5000 UT) Capsule 1 cap(s) orally once a day , Taking Atorvastatin Calcium 40 MG Tablet 1 tab(s) orally once a day , Taking Sildenafil Citrate 20 MG Tablet 1 to 5 tablet Orally Once a day as needed , Taking Carvedilol 3.125 MG Tablet 1 tab(s) orally 2 times a day , Taking Spironolactone 25 MG Tablet TAKE 1 TABLET BY MOUTH TWICE DAILY , Taking Entresto 24-26 MG Tablet 1 tab(s) orally 2 times a day , Taking Levothyroxine Sodium 25 MCG Tablet 1 tab(s) orally once a day , Taking Furosemide 40 MG Tablet 1 tablet Orally Once a day as needed , Discontinued Fluticasone Propionate 50 MCG/ACT Suspension 1 spray(s) in each nostril once a day , Medication List reviewed and reconciled with the patient * Allergies: C odeine. Objective: * Vitals: W t:294.8, Temp:98.1, BP:114/72, HR:71, Nurse:beulah, Ht: 71, BMI:41.11. * Examination: C ardiology: General Appearance: p leasant, NAD. HEENT: u nremarkable. Heart sounds: R RR, normal S1, S2. Lungs: c lear, no rales or wheezes. Extremities: n o leg edema. Assessment: * Assessment: 1. C hronic congestive heart failure, unspecified congestive heart failure type - I50.9 (Primary) 2 . V itamin D deficiency - E55.9 3 . H yperglycemia - R73.9 Plan: * Treatment: 2. V itamin D deficiency L AB: P-Vitamin D 25-Hydroxy (Collection Date & Time - 04/26/2024 08:43 AM) 2 4.2 Value Reference Range V itamin D 25-Hydroxy 24.2 L 30.0-100.0 - ng/mL * Alma Butts 04/27/2024 8:33: 55 AM >See phone encounter 3.?Hyperglycemia?LAB: Glucose (In-House) (Collection Date & Time - 04/26/2024)?144* Value Reference Range b lood glucose 144 74 - 106 mg/dL * Yenny Newberry 04/26/2024 9:59:38 AM > Alma Butts 04/27/2024 8:33:55 AM >See phone encounter ?LAB: Glycohemoglobin A1c (in house) (Collection Date & Time - 04/26/2024)? 5.7* Value Reference Range g lycohemoglobin 5.7% 5 - 6.5 % * Yenny Newberry 04/26/2024 10:02:0 6 AM > Alma Butts 04/27/2024 8:33:55 AM >See phone encounter * Procedure Codes: 8 2950 GLUCOSE TEST, 14188 GLYCATED HEMOGLOBIN TEST, Modifiers: QW * Follow Up: 6 Months * Billing Information: * Visit Code: 77295 Office Visit, Est Pt., Level 4. * Procedure Codes: 79831 GLUCOSE TEST. 37791 GLYCATED HEMOGLOBIN TEST. Modifiers: QW * Electronic signature of Jessie Salinas MD on 02/12/2025 at 09:33 AM EDT Sign off status: Pending * Provider: Julianne Salinas M.D. Date: 0 04/26/2024 Generated for Nette fried/Jessica/eTransmitting on: 0 02/12/2025 09:33 AM EDT History and Physical Notes * HPI (History of Present Illness) Category Sub-Category Detail Notes Category Not es Endocrinology Hypothyroidism Pt here to f/u Cardiology Blood Pressure Elevated Pt here to f/u on hypertension, states he is doing well and does not have any concerns Hyperlipidemia Pt is not fasting to day Examination Category Sub-Category Detail Notes Category Not es Cardiology Lungs: clear, no rales or wheezes HEENT: unremarkable Heart sounds: RRR, normal S1, S2 Extremities: no leg edema General Appearance: pleasant, NAD
--- OUTSIDE RECORDS SUMMARY | 2024-10-25 05:30 | XMS_ITS ---
Author Organization [facility] Address [address] [facility] [address] [place] [id number] Care Team Providers Care Senior Operations Manager Name Role Phone Ji Salinas Primary Care Provider Allergies Allergen (clinical drug ingredient) Drug/Non Drug Allergy documented on EMR Reaction Allergy Type Onset Date Status codeine Codeine Unknown Drug Allergy Active Results Component Value Reference Range Notes P-Comprehensive Metabolic Pa mulu (CMP) Reviewed date:10/27/2024 09:42:14 AM Interpretation: Normal Performing Lab: Notes/Report: Test performed by [employer] [address] , [address], [place] [address] Remigio Baker MD, Phlebotomy Program Coordinator CLIA: [id number] Sodium 142 135-145 mmol/L Potassium 4.6 3.5-5.3 mmol/L Chloride 104 97-108 mmol/L CO2 23 22-32 mmol/L Glucose 120 65-99 mg/dL BUN 7 6-20 mg/dL Creatinine 0.91 0.70-1.30 mg/dL Calcium 10.1 8.6-10.4 mg/dL eGFR by Creatinine 98 >59 mL/min/1.73m2 Protein 7.2 6.0-8.3 g/dL Albumin 4.8 3.5-5.3 g/dL Alkaline Phosphatase 81 40-129 IU/L ALT (SGPT) 20 <5-55 IU/L AST (SGOT) 16 <5-46 IU/L Bilirubin, Total 0.6 <0.2-1.2 mg/dL A/G Ratio 2.0 1.1-2.5 P-T4 Free (thyroxine) Reviewed date:10/27/2024 09:42:14 AM Interpretation: Normal Performing Lab: Notes/Report: Test performed by [email or web address] [address] [place] [address] [address], [place] [address] Remigio Baker MD, Phlebotomy Program Coordinator CLIA: [id number] Thyroxine Free (free T4) 1.33 0.86-1.76 ng/dL P-Lipid Panel Reviewed date:10/27/2024 09:42:14 AM Interpretation:trigs 157, non-hdl 140 Performing Lab: Notes/Report: Test performed by [email or web address] [address] [place] [address] [address], [place] [address] Remigio Baker MD, Phlebotomy Program Coordinator CLIA: [id number] Cholesterol 182 <200 mg/dL Triglycerides 157 <150 mg/dL HDL Cholesterol 42 >39 mg/dL Cholesterol / HDL Ratio 4.33 0.00-4.99 Ratio Non-HDL Cholesterol 140 <130 mg/dL LDL Cholesterol (Calculation) 109 <130 mg/dL LDL Cholesterol Levels* Less than 100 mg/dL Optimal 100 to 129 mg/dL Near Optimal/ Above Optimal 130 to 159 mg/dL Borderline High 160 to 189 mg/dL High 190 mg/dL and above Very High * Categories as recommended by the 2004 ATPIII guidelines LDL/HDL Ratio 2.6 <3.3 Ratio LDL Cholesterol Patient History Test Date: 10/25/2024 LDL Results: 109 Units: mg/dL % Change: - P-PSA Reviewed date:10/27/2024 09:42:14 AM Interpretation: Normal Performing Lab: Notes/Report: Test performed by [employer] [address] , [place] [address] Remigio Baker MD, Phlebotomy Program Coordinator CLIA: [id number] PSA 0.96 <4.00 ng/mL Please note this is an ultrasensitive PSA assay with a lower limit of detection of 0.014 ng/mL. This test is performed by the Monitoring Division ECLIA methodology. Values obtained with different assay methods or kits cannot be directly compared. P-TSH Reviewed date:10/27/2024 09:42:14 AM Interpretation: Performing Lab: Notes/Report: Test Cancelled Test Cancelled Test Cancel led P-TSH reflex to FT4 Reviewed date:10/27/2024 09:42:14 AM Interpretation: Normal Performing Lab: Notes/Report: Test performed by [employer] [address] , [address], [place] [address] Remigio Baker MD, Phlebotomy Program Coordinator CLIA: [id number] TSH reflex to FT4 2.27 0.43-5.25 mU/L P-Microalbumin/Creatinine, R andom Urine Sample Reviewed date:10/27/2024 09:42:14 AM Interpretation: Normal Performing Lab: Notes/Report: Test performed by [employer] [address] , [place] [address] Remigio Baker MD, Phlebotomy Program Coordinator CLIA: [id number] Albumin/Creatinine Ratio, Urine <22.2 0-30 ug/mg Microalbumin, Urine, Random <0.3 Creatinine, Urine 13.5 P-Vitamin D 25-Hydroxy Reviewed date:10/27/2024 09:42:14 AM Interpretation:37 Performing Lab: Notes/Report: Test performed by [employer] [address] , [place] [address] Remigio Baker MD, Phlebotomy Program Coordinator CLIA: [id number] Vitamin D 25-Hydroxy 37.0 30.0-100.0 ng/mL Interpretation of Vitamin D 25 OH: < 20 ng/mL - Deficiency 20 - 29 ng/mL - Insufficiency 30 - 100 ng/mL - Sufficiency > 100 ng/mL - Super-therapeutic- toxicity may occur above this level. Clinical correlation required. REASON FOR VISIT 6 months Medications Medication SIG (Take, Route, Frequency, Duration) Notes Start Date End Date Status Levothyroxine Sodium 25 MCG TAKE 1 TABLE T BY MOUTH DAILY for 90 days Active Sildenafil Citrate 20 MG 1 to 5 tablet O rally Once a day as needed 04/20/2023 Active Spironolactone 25 MG 1 tablet Orally Two times a day for 90 days Active Furosemide 40 MG 1 tablet Orally Once a day as needed for 90 days 04/20/2023 Active Entresto 24-26 MG 1 tab(s) orally 2 ti mes a day for 90 days Active Darlin Aspirin EC Low Dose 81 MG 1 tab(s) orally once a day Active Carvedilol 3.125 MG 1 tab(s) orally 2 ti mes a day for 90 days Active Atorvastatin Calcium 40 MG 1 tab(s) oral ly once a day for 90 days Active Vitamin D3 125 MCG (5000 UT) 1 cap(s) or ally once a day 01/05/2018 Active Vital Signs Blood pressure systolic 110 mm Hg 10/25/19 25 Blood pressure diastolic 68 mm Hg 025 Heart Rate 75 /min 10/25/2024 Height 71 in 10/25/2024 Weight 298.2 lbs 10/25/2024 BMI 41.59 kg/m2 10/25/2024 Encounters Encounter Location Date Provider Diagnosis [facility] [address] [facility] [address] [place] [address], [place] [phone] 10/25/2024 Ji Salinas Essential hypertensi on I10 ; Mixed hyperlipidemia E78.2 ; Low vitamin D level E55.9 ; Hypothyroidism (acquired) E03.9 ; Chronic congestive heart failure, unspecified congestive heart failure type I50.9 and Prostate cancer screening Z12.5 Assessments Encounter Date Diagnosis (ICD Code) Assessment Notes Treatment Notes Treatment Clinical Notes Section Notes 10/25/2024 Essential hypertension (ICD-10 - I10) 10/25/2024 Mixed hyperlipidemia (ICD-10 - E78.2) 10/25/2024 Low vitamin D level (ICD-10 - E55.9) 10/25/2024 Hypothyroidism (acquired) (ICD-10 - E03.9) 10/25/2024 Chronic congestive heart failure, unspecified congestive heart failure type (ICD-10 - I50.9) 10/25/2024 Prostate cancer screening (ICD-10 - Z12.5) Plan Of Treatment Medication Medication Name Sig Start Date Stop Date Notes Spironolactone 25 MG 1 tablet Orally Two times a day for 90 days Furosemide 40 MG 1 tablet Orally Once a day as needed for 90 days 04/20/2023 Entresto 24-26 MG 1 tab(s) orally 2 ti mes a day for 90 days Carvedilol 3.125 MG 1 tab(s) orally 2 ti mes a day for 90 days Atorvastatin Calcium 40 MG 1 tab(s) oral ly once a day for 90 days Next Appt Details Follow Up: 6 Months, Reason: Provider Name:Ji Zaldivar ry, 04/25/2025 09:30:00 AM, [address] [facility] [address] [facility], [address] [place] [address], [phone], Progress Notes * CHIKIS JOMARDANICADOB:1965 (59 yo M)Acc No.[id number]:10/25/2024 Progress Notes Patient: LILA GUERRA Provider: Julianne Salinas M.D. :1965 A ge:59 Y S ex:Male Date:10/25/2024 Address:[address] [place] [id number] Subjective: * Chief Complaints: * 1 . 6 months. * HPI: C ardiology: 59 year old male presents with c/o Short of Breath. c/o Weakness. c/o Hypotension P t presents today for a 6 month check up. Pt is fasting today. Pt sts that he does not check his BP at home but sts that he can tell it has been running low. Pt sts that he has a very hard time staying awake in the afternoon. Pt needs refills today. Denies : Dizziness. * ROS: D ERMATOLOGY: no R krys. n o H americo. G ASTROENTEROLOGY: no N ausea. n o V omiting. U ROLOGY: no D ifficulty urinating. n o B lood in urine. * Medical History: C oronary Artery Disease s/p [place] with stent 11/11, Hypertension, Hyperlipidemia, 30% EF on cath 03/2010, 41% EF on cardiolyte GXT 05/2014, 35-40% EF 03/2016, [place] 07/20/17 - Dr. Turner, Left Heart Cath Jul 2017, EF 20-25%, AICD placed., Cardiomyopathy. * Surgical History: H ernia Repair 2003, LT Leg Fatty Tumor Removal before 1999, Stent RT Side of Heart 11/10/2007, Heart Cath 03/2010, Defibulator 07/22/2017, Colonoscopy 2017, EGD with esophageal dilitation 2017. * Hospitalization/Major Diagno stic Procedure: M I- [facility] 07/20-, Heart Shock- [facility] ER 09/04/2017, Chest Pain- [facility] ER 10/19/2017, SOA- [facility] 09/03-. * Family History: F ather: alive [...] TABLET BY MOUTH TWICE DAILY , Taking Furosemide 40 MG Tablet 1 tablet Orally Once a day as needed , Taking Entresto 24-26 MG Tablet 1 tab(s) orally 2 times a day , Taking Levothyroxine Sodium 25 MCG Tablet TAKE 1 TABLET BY MOUTH DAILY , Medication List reviewed and reconciled with the patient * Allergies: C odeine. Objective: * Vitals: W t:298.2, Temp:98.1, BP:110/68, HR:75, Nurse:CORBIN, Ht: 71, BMI:41.59. * Examination: C ardiology: General Appearance: p reynaldo, NAD. HEENT: u nremarkable. Heart sounds: R RR, normal S1, S2. Lungs: c lear, no rales or wheezes. Extremities: n o leg edema. Assessment: * Assessment: 1. E ssential hypertension - I10 (Primary) 2 . M ixed hyperlipidemia - E78.2 3 . L ow vitamin D level - E55.9 4 . H ypothyroidism (acquired) - E03.9 5 . C hronic congestive heart failure, unspecified congestive heart failure type - I50.9 6 . P rostate cancer screening - Z12.5 Plan: * Treatment: Value Reference Range A lbumin/Creatinine Ratio, Urine <22.2 0-30 - ug /mg * C reatinine, Urine 13.5 - mg/dL * M icroalbumin, Urine, Random <0.3 - mg/dL * Abdulaziz Buttsia 10/27/2024 9:42: 02 AM >See phone encounter 2.?Mixed hyperlipidemia? Refill Atorvastatin Calcium Tablet, 40 MG, 1 tab(s), orally, once a day, 90 days, 90, Refills 1. ?LAB: P-Comprehensive Metabolic Panel (CMP) (Collection Date & Time - 10/25/2024 09:25 AM)?Normal* Value Reference Range A /G Ratio 2.0 1.1-2.5 - * A lbumin 4.8 3.5-5.3 - g/dL * A lkaline Phosphatase 81 40-129 - IU/L * A LT (SGPT) 20 <5-55 - IU/L * A ST (SGOT) 16 <5-46 - IU/L * B ilirubin, Total 0.6 <0.2-1.2 - mg/dL * B UN 7 6-20 - mg/dL * C alcium 10.1 8.6-10.4 - mg/dL * C hloride 104 97-108 - mmol/L * C O2 23 22-32 - mmol/L * C reatinine 0.91 0.70-1.30 - mg/dL * G lucose 120 H 65-99 - mg/dL * P otassium 4.6 3.5-5.3 - mmol/L * S odium 142 135-145 - mmol/L * P rotein 7.2 6.0-8.3 - g/dL * e GFR by Creatinine 98 >59 - mL/min/1.73m2 * Alma Butts 10/27/2024 9:42: 02 AM >See phone encounter ?LAB: P-Lipid Panel (Collection Date & Time - 10/25/2024 09:25 AM)?trigs 157, non-hdl 140* Value Reference Range C holesterol / HDL Ratio 4.33 0.00-4.99 - Ratio * C holesterol 182 <200 - mg/dL * H DL Cholesterol 42 >39 - mg/dL * L DL Cholesterol (Calculation) 109 <130 - mg/d L * L DL/HDL Ratio 2.6 <3.3 - Ratio * N on-HDL Cholesterol 140 H <130 - mg/dL * T riglycerides 157 H <150 - mg/dL * Alma Butts 10/27/2024 9:42: 02 AM >See phone encounter ?LAB: P-TSH reflex to FT4 (Collection Date & Time - 10/25/2024 09:25 AM)? Normal* Value Reference Range T SH reflex to FT4 2.27 0.43-5.25 - mU/L * Alma Butts 10/27/2024 9:42: 02 AM >See phone encounter 3.?Low vitamin D level?LAB: P-Vitamin D 25-Hydroxy (Collection Date & Time - 10/25/2024 09:25 AM)? 37* Value Reference Range V itamin D 25-Hydroxy 37.0 30.0-100.0 - ng/mL * BenjamínAlma reed 10/27/2024 9:42: 02 AM >See phone encounter 4.?Hypothyroidism (acquired)?LAB: P-T4 Free (thyroxine) (Collection Date & Time - 10/25/2024 09:25 AM)? Normal* Value Reference Range T hyroxine Free (free T4) 1.33 0.86-1.76 - ng/d L * Alma Butts 10/27/2024 9:42: 02 AM >See phone encounter ?LAB: P-TSH (Collection Date & Time - 10/25/2024 09:25 AM)* Value Reference Range T est Cancelled Test Cancelled - * Alma Butts 10/27/2024 9:42: 02 AM >See phone encounter 5.?Chronic congestive heart failure, unspecified congestive heart failure type? Refill Entresto Tablet, 24-26 MG, 1 tab(s), orally, 2 times a day, 90 days, 180, Refills 1;?Refill Furosemide Tablet, 40 MG, 1 tablet, Orally, Once a day as needed, 90 days, 90, Refills 1;?Refill Spironolactone Tablet, 25 MG, 1 tablet, Orally, Two times a day, 90 days, 180 Tablet, Refills1.??6.?Prostate cancer screening?LAB: P-PSA (Collection Date & Time - 10/25/2024 09:25 AM)?Normal* Value Reference Range P SA 0.96 <4.00 - ng/mL * Alma Butts 10/27/2024 9:42: 02 AM >See phone encounter * Procedure Codes: 3 074F SYST BP LT 130 MM HG, 3078F DIAST BP < 80 MM HG * Follow Up: 6 Months * Billing Information: * Visit Code: 53090 Office Visit, Est Pt., Level 4. * Procedure Codes: 3074F SYST BP LT 130 MM HG. 3078F DIAST BP < 80 MM HG. * Electronic signature of Jessie Salinas MD on 02/12/2025 at 09:32 AM EDT Sign off status: Pending * Provider: Julianne Salinas M.D. Date: 10/25/2024 Generated for Nette fried/Jessica/Sakina on: 0 02/12/2025 09:32 AM EDT History and Physical Notes * HPI (History of Present Illness) Category Sub-Category Detail Notes Category Not es Cardiology Short of Breath Dizziness Weakness Hypotension Pt presents today fo r a 6 month check up. Pt is fasting today. Pt sts that he does not check his BP at home but sts that he can tell it has been running low. Pt sts that he has a very hard time staying awake in the afternoon. Pt needs refills today Examination Category Sub-Category Detail Notes Category Not es Cardiology Lungs: clear, no rales or wheezes HEENT: unremarkable Heart sounds: RRR, normal S1, S2 Extremities: no leg edema General Appearance: pleasant, NAD
--- OUTSIDE RECORDS SUMMARY | 2025-02-09 05:45 | XMS_ITS ---
Author Organization [facility] Address [address] [facility] [place] [id number] Care Team Providers Care Color Matcher Name Role Phone Ji Salinas Primary Care [...] 5 - 6.5 % REASON FOR VISIT [facility] f/u Medications Medication SIG (Take, Route, Frequency, Duration) Notes Start Date End Date Status Entresto 24-26 MG 1 tab(s) orally 2 times a day Active Carvedilol 6.25 MG 1 tablet with food Orally Twice a day Active Atorvastatin Calcium 40 MG 1 tab(s) oral ly once a day for 90 days Active Levothyroxine Sodium 25 MCG TAKE 1 TABLET BY MOUTH DAILY for 90 days Active Darlin Aspirin EC Low Dose 81 MG 1 tab(s) orally once a day Active Prasugrel HCl 10 MG as directed Orally Active Jardiance 10 MG 1 tablet Orally Once a day for 90 days Active Sildenafil Citrate 20 MG 1 to 5 tablet O rally Once a day as needed 04/20/2023 Not-Taking Vitamin D3 125 MCG (5000 UT) 1 cap(s) orally once a day 01/05/2018 Not-Taking Furosemide 40 MG TAKE 1 TABLET BY ANA DAILY NEEDED for 90 Active Spironolactone 25 MG 1 tablet Orally Two times a day for 90 days Active Vital Signs Blood pressure systolic 120 mm Hg 02/10/20 25 Blood pressure diastolic 70 mm Hg 025 Heart Rate 88 /min 02/09/2025 Height 71 in 02/09/2025 Weight 292.2 lbs 02/09/2025 BMI 40.75 kg/m2 02/09/2025 Encounters Encounter Location Date Provider Diagnosis [facility] [facility] 36 [facility] [address] [place] [id number] 02/09/2025 Ji Salinas Coronary arterioscle rosis I25.10 [...] 10 MG 1 tablet Orally Once a day for 90 days Next Appt Details Follow Up: as scheduled,and prn, Reason: Provider Name:Ji Zaldivar ry, 04/25/2025 09:30:00 AM, [address] [facility] [address] [facility], [address], [place], [phone], Progress Notes * LILA DIOPDOB:1965 (59 yo M)Acc No.[id number]:02/09/2025 Progress Notes Patient: LILA GUERRA Provider: Julianne Salinas M.D. :1965 A ge:59 Y S ex:Male Date:02/09/2025 Address:[address] [place] [address], [place], [id number] Subjective: * Chief Complaints: * 1 . [facility] f/u. * HPI: H PI: 59 year old male presents with c/o Here for follow up on: P t is here today for a f/u from [facility]. Pt was seen on 01/26 and d/c [...] Medical History: C oronary Artery Disease s/p [place] with stent 11/11, Hypertension, Hyperlipidemia, 30% EF on cath 03/2010, 41% EF on cardiolyte GXT 05/2014, 35-40% EF 03/2016, [place] 07/20/17 - Dr. Turner, Left Heart Cath Jul 2017, EF 20-25%, AICD placed., Cardiomyopathy. * Surgical History: H ernia Repair 2003, LT Leg Fatty Tumor Removal before 1999, Stent RT Side of Heart 11/10/2007, Heart Cath 03/2010, Defibulator 07/22/2017, Colonoscopy 2017, EGD with esophageal dilitation 2017. * Hospitalization/Major Diagno stic Procedure: M I- [facility] 07/20-, Heart Shock- [facility] ER 09/04/2017, Chest Pain- [facility] ER 10/19/2017, SOA- [facility] 09/03-. * Family History: F [...] reconciled with the patient * Allergies: C rianna. Objective: * Vitals: W t: 292.2, Temp: 98.4, BP: 120/70, HR: 88, Nurse: cathryn, Ht: 71, BMI:40.75. * Examination: G eneral Examination: General Appearance: N AD. Heart: R SR. Lungs: c lear to auscultation. Extremities: n o leg edema. Assessment: * [...] glucose 131 74 - 106 mg/dL * Houg, Almaz 02/09/2025 10:07 :56 AM EDT > Provider [...] Procedure Codes: 3 6416 CAPILLARY BLOOD DRAW, 49927 GLUCOSE TEST, 15702 GLYCATED HEMOGLOBIN TEST, Modifiers: QW * Follow Up: a s scheduled,and prn * Billing Information: * Visit Code: 30235 Office Visit, Est Pt., Level 4. * Procedure Codes: 47027 CAPILLARY BLOOD DRAW. 36540 GLUCOSE TEST. 01187 GLYCATED HEMOGLOBIN TEST. Modifiers: QW * Electronic signature of Jessie Salinas MD on 02/12/2025 at 09:33 AM EDT Sign off status: Pending * Provider: Julianne Salinas M.D. Date: 0 02/09/2025 Generated for Nette fried/Jessica/Kingstonitting on: 0 02/12/2025 09:33 AM EDT History and Physical Notes * HPI (History of Present Illness) Category Sub-Category Detail Notes Category Not es HPI Here for follow up on: Pt is her e today for a f/u from [facility]. Pt was seen on 01/26 and d/c [...]
[2025-02-12] VITALS (7 sets, daily range): BP systolic 97–120; BP diastolic 61–76; PULSE 60–62; RESP 8–18; TEMP 36.6–36.7; O2SAT 95–100; BMI 40.4
--- NOTE | 2025-02-12 09:25 | HMH.EDGENADL ---
Discharge Plan Prescriptions Prescriptions: No Action prasugrel HCl [Effient] 10 mg tablet 10 mg PO DAILY levothyroxine 25 mcg tablet 25 mcg PO DAILY Patient Comments: TAKE 1 TABLET BY MOUTH EVERY DAY aspirin 81 mg Tablet 81 mg PO DAILY furosemide [Lasix] 40 mg tablet 40 mg PO DAILYP PRN (Reason: Edema) atorvastatin 80 mg tablet 80 mg PO DAILY carvedilol 6.25 mg tablet 6.25 mg PO BID spironolactone 25 mg tablet 25 mg PO BID Entresto 24-26 mg tablet 1 tab PO BID Jardiance 10 mg Tablet 10 mg PO DAILY Qty: 30 1RF Referrals Follow up/Referrals: Ji Salinas MD [Primary Care Provider, Medical] - See instructions Print Language Print Language: Beninese Discharge ED Provider: Zaki Mcmillan Adult HPI General Stated complaint: SOB, Fatigue, Light-headed Time Seen by Provider: 02/12/25 09:25 History of Present Illness HPI narrative: Please note that above description of symptoms, in this electronic medical record under categorization of recalled from ER triage doctor by RN are reflective of an initial nursing assessment, however, is not reflective of my full history and physical exam that was personally taken and clarified. Consequentially, this preceding description of symptoms, which may include the patient's categorized chief complaint in the EMR, do not reflect my personal clinical impression, and the ultimate description of history of present illness and patient stated complaints should be deferred to this section of the note. Unless stated otherwise or congruent with this section of the note, additional signs, symptoms, or incongruence should be interpreted as inaccurate with my clinical impression. Related Data Home Medications ?Medication ?Instructions ?Recorded ?Confirmed aspirin 81 mg tablet 81 mg PO DAILY 10/27/22 02/01/25 levothyroxine 25 mcg tablet 25 mcg PO DAILY 10/27/22 02/01/25 atorvastatin 80 mg tablet 80 mg PO DAILY 01/26/25 02/01/25 carvedilol 6.25 mg tablet 6.25 mg PO BID 01/26/25 02/01/25 furosemide 40 mg tablet (Lasix) 40 mg PO DAILYP PRN Edema 01/26/25 02/01/25 sacubitril 24 mg-valsartan 26 mg 1 tab PO BID 01/26/25 02/01/25 tablet (Entresto) spironolactone 25 mg tablet 25 mg PO BID 01/26/25 02/01/25 prasugrel HCl 10 mg tablet 10 mg PO DAILY 02/01/25 (Effient) Previous Rx's ?Medication ?Instructions ?Recorded empagliflozin 10 mg tablet 10 mg PO DAILY #30 tabs 01/27/25 (Jardiance) Allergies Allergy/AdvReac Type Severity Reaction Status Date / Time codeine (CODEINE) Allergy Intermediate Verified 02/01/25 14:14 [facility] Disclaimer: The information contained in this section may have been updated after the patient was seen, as this information can be updated by other users. Medical History Erectile dysfunction Typical angina Atypical chest pain Acute dyspnea Hallux limitus Metatarsalgia of both feet Ventricular tachycardia, non-sustained Arrhythmia Right ureteral calculus Ureteric stone Encephalomalacia on imaging study HFrEF (heart failure with reduced ejection fraction) Equinus contracture of ankle Abnormal cardiovascular stress test Atypical angina Dyspnea Palpitations Myocardial infarction HTN (hypertension), benign Ischemic cardiomyopathy CAD (coronary artery disease) Automatic implantable cardiac defibrillator in situ Hyperlipidemia Hypertensive disorder Coronary arteriosclerosis Surgical History S/P implantation of automatic cardioverter/defibrillator (AICD) History of colonoscopy History of esophagogastroduodenoscopy (EGD) H/O hernia repair History of heart artery stent Family History Other Heart attack Hyperlipidemia Stroke Social History Smoking Status: Former smoker tobacco type: cigarettes packs per day: 1 alcohol intake: former substance use type: denies use current occupational status: employed Travel in the last 8 weeks?: None household members: spouse and children housing: house current occupational exposures/hazards: Yes caffeine: Yes Other Medical History Have you received the Flu Vaccine for this season: No Have you received the Pneumonia Vaccine: No ROS Obtained: Yes other As per HPI Physical Exam General General appearance: alert and in no apparent distress Head Head exam: atraumatic and normocephalic Eye Eye exam: Present normal appearance Neck Neck exam: Present normal inspection Chest Chest inspection: Present normal inspection and symmetric chest wall rise Respiratory Respiratory exam: Present normal lung sounds bilaterally; Absent respiratory distress Cardiovascular Cardiovascular exam: Present regular rate and normal rhythm Abdominal Exam Abdominal exam: Present soft Neurological Exam Neurological exam: Present alert and oriented X3 Psychiatric Psychiatric exam: Present normal affect and normal mood Skin Skin exam: Present warm and dry Medical Decision Making Medical Records Medical records reviewed: Yes I reviewed the patient's medical records. Screening: Per USPSTF and CDC recommendations, given the prevalence of disease in our region, it is our hospital?s policy to screen for HIV and viral Hepatitis for all patients aged 18 and over and those with ongoing risk factors. Marcelo Inquiry Pt receiving controlled substance: No Medical Decision Narrative: Patient with history and exam per above presenting for evaluation of Diagnoses considered include ED workup and treatment included: Labs were independently interpreted by me, significant for Imaging was independently visualized and interpreted by me, significant for Please refer to radiology report for full details. My clinical impression at this time is most consistent with I discussed my clinical impression with patient and answered all questions. At this time, the evidence for any other entities in the differential is insufficient to warrant any further testing or ED observation. This was explained to the patient. The patient was advised that persistent or worsening symptoms require further evaluation. Critical Care Critical Care Time Critical Care Time: No
--- NOTE | 2025-02-12 09:27 | XR_ITS ---
FINAL REPORT TECHNIQUE: Chest PA & Lateral CLINICAL HISTORY: Shortness of breath COMPARISON: 10/27/2022 FINDINGS: 2 views of the chest were performed. There is a left-sided pacemaker. Mild cardiomegaly is noted. The mediastinum is within normal limits. There is no acute cardiopulmonary process. There are no pleural effusions. There is no pneumothorax. The bony thorax appears intact. IMPRESSION: No acute cardiopulmonary process. Reviewed, Interpreted and Dictated by Johnny Walter MD Transcribed by Danielle Malloy Authenticated and . [facility] [place]
--- NOTE | 2025-02-12 09:30 | ECG_ITS ---
APPROVED REPORT Exam: Resting ECG HR:63 bpm ECG Measurements Heart Rate 63 AXES MS 176 P 53 QRSd 126 QRS -75 QT 339 T 32 QTc 346 Conclusion SINUS RHYTHM LEFT ANTERIOR FASCICULAR BLOCK [QRS AXIS <= -45, QR IN I, RS IN II] ANTEROSEPTAL MYOCARDIAL INFARCTION , OF INDETERMINATE AGE [40+ ms Q WAVE IN V1-V4] Electronically signed by : CHACHO JONES, 02/12/2025 15:21:15
--- OUTSIDE RECORDS SUMMARY | 2025-02-12 09:31 | XMS_ITS | Continuity of Care Document ---
Author Name [facility] Organization [facility] Care Team Providers Care Clockmaker Name Role Phone [facility] Unavailable Unavailable Procedures Combined list of: 1) Procedures from Department of Veterans Affairs facilities going back up to thelast 18 months, not all VA non-surgical procedures are included; 2) All procedures from the Department of Defense facilities. Procedure Procedure Type Code Date Perfomer Comments Sourc e INDIVIDUAL PSYCHOTHERAPY, INSIGHT ORIENTED, BEHAVIOR MODIFYING AND/OR SUPPORTIVE, IN AN OFFICE OR OUTPATIENT FACILITY, APPROXIMATELY 20 TO 30 MINUTES [id number] WITH THE PATIENT 09/10/2003 [facility] HANDLING AND/OR CONVEYANCE O F SPECIMEN FOR TRANSFER FROM THE OFFICE TO A LABORATORY 09/10/2003 [facility] Social History Combined list of available smoking, tobacco, and other social history from Department of Defense and Veterans Affairs facilities. Social History Type Response Date Comment Sourc e This section is an empty social history section. [facility]
--- OUTSIDE RECORDS SUMMARY | 2025-02-12 09:32 | XMS_ITS | Patient Health Record ---
[facility] [address] [place] [phone] Care Team Providers Care Olericulture Professor Name Role Phone Ji Salinas Primary Care Provider Allergies Allergen (clinical drug ingredient) Drug/Non Drug Allergy documented on EMR Reaction Allergy Type Onset Date Status codeine Codeine Unknown Drug Allergy Active Results Component Value Reference Range Notes Glycohemoglobin A1c (in hous e) Reviewed date:02/09/2025 12:07:19 PM Interpretation:6.0% Performing Lab: Notes/Report: 6.0% glycohemoglobin 6.0% 5 - 6.5 % Glucose (In-House) Reviewed date:02/09/2025 12:07:18 PM Interpretation:131 Performing Lab: Notes/Report: 131 blood glucose 131 74 - 106 mg/dL P-Comprehensive Metabolic Pa mulu ([facility]) Reviewed date:10/27/2024 09:42:14 AM Interpretation: Normal Performing Lab: Notes/Report: Test performed by [facility] [employer] [address] [place] [address] , [address], [place] [address] Remigio Baker MD, Communications Supervisor CLIA: [id number] Sodium 142 135-145 mmol/L Potassium 4.6 3.5-5.3 [...] Normal Performing Lab: Notes/Report: Test performed by [facility] [address] [place] [address] , [facility] [place] [address] Remigio Baker MD, Communications Supervisor CLIA: [id number] Thyroxine Free (free T4) 1.33 0.86-1.76 ng/dL P-Lipid Panel Reviewed date:10/27/2024 09:42:14 AM Interpretation:trigs 157, non-hdl 140 Performing Lab: Notes/Report: Test performed by [facility] [address] [place] [address] , [place] [address] Remigio Baker MD, Communications Supervisor CLIA: [id number] Cholesterol 182 <200 mg/dL Triglycerides 157 <150 [...] Normal Performing Lab: Notes/Report: Test performed by [facility] [address] [place] [address] , [address], [place] [address] Remigio Baker MD, Communications Supervisor CLIA: [id number] PSA 0.96 <4.00 ng/mL Please note this is an ultrasensitive PSA assay with a lower limit of detection of 0.014 ng/mL. This test is performed by the Yossi ECLIA methodology. Values obtained with different assay methods or kits cannot be directly compared. P-TSH Reviewed date:10/27/2024 09:42:14 AM Interpretation: Performing Lab: Notes/Report: Test Cancelled Test Cancelled Test Cancel led P-TSH reflex to FT4 Reviewed date:10/27/2024 09:42:14 AM Interpretation: Normal Performing Lab: Notes/Report: Test performed by [facility] [address] [place] [address] , [place] [address] Remigio Baker MD, Communications Supervisor CLIA: [id number] TSH reflex to FT4 2.27 0.43-5.25 mU/L P-Microalbumin/Creatinine, R andom Urine Sample Reviewed date:10/27/2024 09:42:14 AM Interpretation: Normal Performing Lab: Notes/Report: Test performed by [facility] [address] [place] [address] , [address], [place] [address] Remigio Baker MD, Communications Supervisor CLIA: [id number] Albumin/Creatinine Ratio, Urine <22.2 0-30 ug/mg Microalbumin, Urine, Random <0.3 Creatinine, Urine 13.5 P-Vitamin D 25-Hydroxy Reviewed date:10/27/2024 09:42:14 AM Interpretation:37 Performing Lab: Notes/Report: Test performed by [facility] [address] [facility] , [address], [place] [address] Remigio Baker MD, Communications Supervisor CLIA: [id number] Vitamin D 25-Hydroxy 37.0 30.0-100.0 ng/mL Interpretation of Vitamin D 25 OH: < 20 ng/mL - Deficiency 20 - 29 ng/mL - Insufficiency 30 - 100 ng/mL - Sufficiency > 100 ng/mL - Super-therapeutic- toxicity may occur above this level. Clinical correlation required. Glucose (In-House) Reviewed date:04/27/2024 08:34:04 AM Interpretation:144 Performing Lab: Notes/Report: 144 blood glucose 144 74 - 106 mg/dL Glycohemoglobin A1c (in hous e) Reviewed date:04/27/2024 08:34:04 AM Interpretation:5.7 Performing Lab: Notes/Report: 5.7 glycohemoglobin 5.7% 5 - 6.5 % P-Vitamin D 25-Hydroxy Reviewed date:04/27/2024 08:34:04 AM Interpretation:24.2 Performing Lab: Notes/Report: Test performed by [facility] [address] [facility] , [address], [place] [address] Remigio Baker MD, Communications Supervisor CLIA: [id number] Vitamin D 25-Hydroxy 24.2 30.0-100.0 ng/mL Interpretation of Vitamin D 25 OH: < 20 ng/mL - Deficiency 20 - 29 ng/mL - Insufficiency 30 - 100 ng/mL - Sufficiency > 100 ng/mL - Super-therapeutic- toxicity may occur above this level. Clinical correlation required. Medications Medication SIG (Take, Route, Frequency, Duration) Notes Start Date End Date Status Entresto 24-26 MG 1 tab(s) orally 2 times a day Active Darlin Aspirin EC Low Dose 81 MG 1 tab(s) orally once a day Active Carvedilol 6.25 MG 1 tablet with food Orally Twice a day Active Prasugrel HCl 10 MG [...] TAKE 1 TABLET BY ANA TH DAILY NEEDED for 90 Active Spironolactone 25 MG 1 tablet Orally Two times a day for 90 days Active Atorvastatin Calcium 40 MG 1 tab(s) oral ly once a day for 90 days Active Levothyroxine Sodium 25 MCG TAKE 1 TABLET BY MOUTH DAILY for 90 days Active Immunizations Vaccine Route Administration Date Status Comme nts xFluzone (6mos and older)-trivalent Unknown 05/07/2009 Administered COVID 19 Moderna Unknown 11/28/2020 Administered COVID 19 Moderna Unknown 12/26/2020 Administered Problems Problem Type SNOMED Code ICD Code Onset Dates Problem Status W/U Status Risk Notes Problem 814054897 Hypothyroidism (acquired) (E03.9) Active confirmed Problem 77766158 Vitamin D defici ency (E55.9) Active confirmed Problem 40244447 Essential hypertension (I10) Active confirmed Problem 954736497 Plantar fasciiti s of right foot (M72.2) Active confirmed Problem 742227530 Mixed hyperlipid emia (E78.2) Active confirmed Problem 880949870 Ischemic cardiomyopathy (I25.5) Active confirmed Problem 18678890 Pain in right fo ot (M79.671) Active confirmed Problem 47021363 Coronary arteriosclerosis (I25.10) Active confirmed Problem 12744953 Pain of left garry t (M79.672) Active confirmed Problem 087474290 Erectile dysfunction, unspecified erectile dysfunction type (N52.9) Active confirmed Problem 66892079 Dysphagia, unspecified type (R13.10) Active confirmed Problem 687392250 Low vitamin D le susu (E55.9) Active confirmed Problem 42750639 Chronic congesti ve heart failure, unspecified congestive heart failure type (I50.9) Active confirmed Problem 98871083 General weakness (R53.1) Active confirmed Problem 5891672 Intra-articular loose body (M24.00) Active confirmed Problem 247033246 History of implantable cardioverter-defibri llator (ICD) placement (Z95.810) Active confirmed Problem 245926291 Implantable cardioverter-defibri llator (ICD) discharge (Z45.02) Active confirmed Vital Signs Heart Rate 88 /min 02/09/2025 Blood pressure diastolic 70 mm Hg 02/09/2025 Height 71 in 02/09/2025 Blood pressure systolic 120 mm Hg 02/09/2025 Weight 292.2 lbs 02/09/2025 BMI 40.75 kg/m2 02/09/2025 Encounters Encounter Location Date Provider Diagnosis Sherly [address] [facility] [place] [address] [place] [id number] 04/26/2024 Ji Pioneer Chronic congestive h eart failure, unspecified congestive heart failure type I50.9 ; Vitamin D deficiency E55.9 and Hyperglycemia R73.9 Mahesh 12[address] [facility] [place] [address] [place] [id number] 10/25/2024 Ji Pioneer Essential hypertensi on I10 ; Mixed hyperlipidemia E78.2 ; Low vitamin D level E55.9 ; Hypothyroidism (acquired) E03.9 ; Chronic congestive heart failure, unspecified congestive heart failure type I50.9 and [facility].5 [facility] [place] [address] [place] [id number] 02/09/2025 Ji Pioneer Coronary arterioscle rosis I25.10 ; Ischemic cardiomyopathy I25.5 ; IFG (impaired fasting glucose) R73.01 and Essential hypertension I10 [facility] [place] [address] [place], [place] [id number] 04/26/2024 Ji Pioneer Mahesh [address] [facility] [place] [address] [place], [place] [id number] 04/27/2024 Ji Pioneer Jorge-David [address] [facility] [place] [address] [place], [place] [id number] 10/27/2024 Ji Pioneer Assessments Encounter Date Diagnosis (ICD Code) Assessment Notes Treatment Notes Treatment Clinical Notes Section Notes 04/26/2024 Vitamin D deficiency (ICD-10 - E55.9) 04/26/2024 Chronic congestive heart failure, unspecified congestive heart failure type (ICD-10 - I50.9) 10/25/2024 Essential hypertension (ICD-10 - I10) 10/25/2024 Mixed hyperlipidemia (ICD-10 - E78.2) 02/09/2025 Ischemic cardiomyopathy (ICD-10 - I25.5) 02/09/2025 Coronary arteriosclerosis (ICD-10 - I25.10) 02/09/2025 IFG (impaired fasting glucose) (ICD-10 - R73.01) 10/25/2024 Low vitamin D level (ICD-10 - E55.9) 04/26/2024 Hyperglycemia (ICD-10 - R73.9) 02/09/2025 Essential hypertension (ICD-10 - I10) 10/25/2024 Hypothyroidism (acquired) (ICD-10 - E03.9) 10/25/2024 Chronic congestive heart failure, unspecified congestive heart failure type (ICD-10 - I50.9) 10/25/2024 Prostate cancer screening (ICD-10 - Z12.5) Plan Of Treatment Next Appt Details Provider Name:Ji Zaldivar ry, 04/25/2025 09:30:00 AM, [address], [address], [place], [place], [id number], Insurance Providers Payer Name Payer Address Payer Phone Subscriber Number Group Number Insured Name Patient Relationship to Insured Coverage Start Date Coverage End Date [facility] [employer] [address] [place] [address] [id number] LILA CAZARES Self - patient is the insured Medications Administered Medication Instructions Date of Administration Dosage Notes Bicillin LA 1,200,000 12/03/2005 Medical (General) History Medical History History ICD Code Coronary Artery Disease s/p SD with sten t 11/11 Hypertension Hyperlipidemia 30% EF on cath 03/2010 41% EF on cardiolyte GXT 05/2014 35-40% EF 03/2016 SD 07/20/17 - Dr. Turner Left Heart Cath Jul 2017, EF 20-25%, AIC D placed. Cardiomyopathy Surgical History Surgery Date(Month/Year) Hernia Repair 2003 LT Leg Fatty Tumor Removal before 1999 Stent RT Side of Heart 11/10/2007 Heart Cath 03/2010 Defibulator 07/22/2017 Colonoscopy 2018 EGD with esophageal dilitation 2017 Hospitalization History Reason Date(Month/Year) SOA- [facility] 09/03- Chest Pain- [facility] ER 10/19/2017 Heart Shock- [facility] ER 09/04/2017 SD- [facility] 07/20-
--- OUTSIDE RECORDS SUMMARY | 2025-02-12 09:32 | XMS_ITS | Clinical Summary ---
Author Organization Healthcare Address [address] [place] [address] Care Team Providers Care Sweatband Shaper Name Role Phone Unavailable Primary Care Provider Unavailabl e Social History Tobacco Use Types Packs/Day Years Used Date Smoking Tobacco: Never Assessed Sex and Gender Information Value Date Recorded Sex Assigned at Not on file Legal Sex Male 8:28 PM EDT Gender Identity Not on file Sexual Orientation Not on file Last Filed Vital Signs Vital Sign Reading Time Taken Comments Blood Pressure 108/60 02/09/2023 8:57 AM EDT Pulse 66 02/09/2023 8:57 AM EDT Temperature - - Respiratory Rate - - Oxygen Saturation - - Inhaled Oxygen Concentration - - Weight 132 kg (290 lb) 02/09/2023 8:57 AM EDT Height 177.8 cm (5' 10 ) 02/09/2023 8:57 AM EDT Body Mass Index 41.61 02/09/2023 8:57 AM EDT Plan of Treatment Health Maintenance Due Date Last Done Comments [facility]-Depression Screening 1967 [facility]-/Child/Adol SDOH Screenings 1967 [facility]- SDOH Screenings 1985 [facility]-Adult SDOH Screenings 1985 [facility]-DTaP,Tdap,and Td Vaccine s (1 - Tdap) 1986 [facility]-Hepatitis B Vaccines (1 of 3 - 19+ 3-dose series) 1986 CT Colonography 2012 Colonoscopy 2012 FIT-DNA 2012 FIT 2012 FOBT 2012 Sigmoidoscopy 2012 [facility]-Colorectal Cancer Screening 2012 [facility]-Pneumococcal Vaccine: 50 + Years (1 of 1 - PCV) 2017 [facility]-Zoster Vaccines (1 of 2) 2017 [id number] Vaccine ( season) 2024 12/26/2020, 11/28/2020 [facility]-Influenza Vaccine (Seaso n Ended) 2025 05/07/2009 HPV Vaccines Aged Out No longer eligi ble based on patient's age to complete this topic [facility]-HIB Vaccines Aged Out No longer e ligible based on patient's age to complete this topic [facility]-Hepatitis A Vaccines Aged Out No longer eligible based on patient's age to complete this topic [facility]-IPV Vaccines Aged Out No longer e ligible based on patient's age to complete this topic [facility]-Rotavirus Vaccines Aged Out No lo nger eligible based on patient's age to complete this topic Insurance
[2025-02-12 09:43] LABS: Coronavirus 19, PCR Not Detected (NotDetected); Influenza A, PCR Not Detected (NotDetected); Influenza B, PCR Not Detected (NotDetected)
--- NOTE | 2025-02-12 09:54 | HMH.EDCP ---
Discharge Plan Disposition Patient Disposition: Home, Self-Care Condition: Good Prescriptions Prescriptions: No Action prasugrel HCl [Effient] 10 mg tablet 10 mg PO DAILY levothyroxine 25 mcg tablet 25 mcg PO DAILY Patient Comments: TAKE 1 TABLET BY MOUTH EVERY DAY aspirin 81 mg Tablet 81 mg PO DAILY furosemide [Lasix] 40 mg tablet 40 mg PO DAILYP PRN (Reason: Edema) atorvastatin 80 mg tablet 80 mg PO DAILY carvedilol 6.25 mg tablet 6.25 mg PO BID spironolactone 25 mg tablet 25 mg PO BID Entresto 24-26 mg tablet 1 tab PO BID Jardiance 10 mg Tablet 10 mg PO DAILY Qty: 30 1RF Referrals Follow up/Referrals: Ji Salinas MD [Primary Care Provider, Medical] - See instructions Vitaly Turner MD [Staff Physician, Cardiology] - See instructions Activity Restrictions/Add. 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 Please follow-up with your primary care doctor in the upcoming days/weeks. Clinical Impressions Clinical Impression: Dyspnea, HFrEF (heart failure with reduced ejection fraction) Instructions Patient Instructions: DI for Shortness of Breath Print Language Print Language: Palestinian Discharge ED Provider: Zaki Mcmillan HPI <COLETTE Ray - Last Filed: 02/12/25 13:00> General Chief Complaint: Shortness of Breath/Dyspnea Stated Complaint: SOB, Fatigue, Light-headed Time Seen by Provider: 02/12/25 09:25 Mode of Arrival: Ambulatory Source of Information: Patient Description of Symptoms (Recalled from ER Triage Doc. by RN): SOA and dizziness which began this AM. Pt denies any pain at this point. Pt reports he had 4 stents placed in January 2025 at this facility. History of Present Illness HPI narrative: 59-year-old male presents to the emergency department with an episode of shortness of breath, episode of nausea, and intermittent lightheadedness/dizziness, no presyncope or syncopal type event, started this morning, approximately 2 hours ago, while he was at work, somewhat on exertion, now present at rest, he denies any chest pain fever chills, cough congestion, recent illness or sick contacts, denies abdominal pain, denies vomiting, diarrhea constipation, no hematuria melena hematochezia or hematemesis, no urinary type symptomatology, patient with former smoker, denies any alcohol or drug use, patient has extensive history including cardiomyopathy, CAD status post 4 stent placements, recent stent placement being in January 2025, is on dual endplate therapy with Plavix and aspirin but taking medication as prescribed, has a past medical history consistent with HFrEF, and automatic implantable cardiac fibrillator, hyperlipidemia hypertension, type 2 diabetes. Initial triage vitals unremarkable Related Data Home Medications ?Medication ?Instructions ?Recorded ?Confirmed aspirin 81 mg tablet 81 mg PO DAILY 10/27/22 02/12/25 levothyroxine 25 mcg tablet 25 mcg PO DAILY 10/27/22 02/12/25 atorvastatin 80 mg tablet 80 mg PO DAILY 01/26/25 02/12/25 carvedilol 6.25 mg tablet 6.25 mg PO BID 01/26/25 02/12/25 furosemide 40 mg tablet (Lasix) 40 mg PO DAILYP PRN Edema 01/26/25 02/12/25 sacubitril 24 mg-valsartan 26 mg 1 tab PO BID 01/26/25 02/12/25 tablet (Entresto) spironolactone 25 mg tablet 25 mg PO BID 01/26/25 02/12/25 prasugrel HCl 10 mg tablet 10 mg PO DAILY 02/01/25 02/12/25 (Effient) Previous Rx's ?Medication ?Instructions ?Recorded empagliflozin 10 mg tablet 10 mg PO DAILY #30 tabs 01/27/25 (Jardiance) Allergies Allergy/AdvReac Type Severity Reaction Status Date / Time codeine (CODEINE) Allergy Intermediate Verified 02/01/25 14:14 [facility] <COLETTE Ray - Last Filed: 02/12/25 13:00> [facility] Disclaimer: The information contained in this section may have been updated after the patient was seen, as this information can be updated by other users. Medical History Erectile dysfunction Typical angina Atypical chest pain Acute dyspnea Hallux limitus Metatarsalgia of both feet Ventricular tachycardia, non-sustained Arrhythmia Right ureteral calculus Ureteric stone Encephalomalacia on imaging study HFrEF (heart failure with reduced ejection fraction) Equinus contracture of ankle Abnormal cardiovascular stress test Atypical angina Dyspnea Palpitations Myocardial infarction HTN (hypertension), benign Ischemic cardiomyopathy CAD (coronary artery disease) Automatic implantable cardiac defibrillator in situ Hyperlipidemia Hypertensive disorder Coronary arteriosclerosis Surgical History S/P implantation of automatic cardioverter/defibrillator (AICD) History of colonoscopy History of esophagogastroduodenoscopy (EGD) H/O hernia repair History of heart artery stent Family History Other Heart attack Hyperlipidemia Stroke Social History Smoking Status: Former smoker tobacco type: cigarettes packs per day: 1 alcohol intake: former substance use type: denies use current occupational status: employed Travel in the last 8 weeks?: None household members: spouse and children housing: house current occupational exposures/hazards: Yes caffeine: Yes Have you lived/traveled outside [place] in past 30 days?: No Contact w/someone who lives/traveled outside US past 30 days?: No Exposure to someone with infectious disease in past 14 days?: No Do you have a fever (greater than 100.4 F or 38 C)?: No Have you tested positive for COVID-19?: No Exposed to someone with COVID-19 in past 14 days?: No Do you have a sore throat?: No Do you have a cough?: No Do you have any weakness?: Yes Do you have any diarrhea?: No Are you experiencing any unusual bleeding?: No Do you have any muscle aches/pain?: No Do you have any abdominal pain?: No Are you experiencing loss of taste or smell?: No Other Medical History Have you received the Flu Vaccine for this season: No Have you received the Pneumonia Vaccine: No <COLETTE Ray - Last Filed: 02/12/25 13:00> ROS Obtained: Yes All systems reviewed & no additional complaints except as documented Physical Exam <COLETTE Ray - Last Filed: 02/12/25 13:00> General General appearance: alert and in no apparent distress Head Head exam: atraumatic and normocephalic Eye Eye exam: Present PERRL and EOMI ENT ENT exam: Present mucous membranes moist Neck Neck exam: Present normal inspection Chest Chest inspection: Present normal inspection and symmetric chest wall rise Respiratory Respiratory exam: Present normal lung sounds bilaterally; Absent respiratory distress, wheezes, stridor or accessory muscle use Cardiovascular Cardiovascular exam: Present regular rate and normal rhythm Abdominal Exam Abdominal exam: Present soft; Absent tenderness, guarding, rebound or rigidity Extremities Exam Extremities exam: Present normal inspection Neurological Exam Neurological exam: Present alert and oriented X3 Psychiatric Psychiatric exam: Present normal affect Skin Skin exam: Present warm and dry HEART Score <COLETTE Ray - Last Filed: 02/12/25 13:00> HEART Score HEART Score assessment performed?: Yes HEART Score: 3 <Zaki Mcmillan MD - Last Filed: 02/13/25 09:09> HEART Score HEART Score: 4 Critical Care <COLETTE Ray - Last Filed: 02/12/25 13:00> Critical Care Time Critical Care Time: No Medical Decision Making <COLETTE Ray - Last Filed: 02/12/25 13:00> Medical Records Medical records reviewed: Yes I reviewed the patient's medical records. Marcelo Inquiry Pt receiving controlled substance: No Marcelo was queried for this patient: No Vital Signs Vital Signs: 02/12/25 09:34 02/12/25 10:20 02/12/25 10:30 Temperature 98.1 F Temperature Source Oral Pulse Rate 62 60 Pulse Rate [Left] 61 Respiratory Rate 16 11 L 8 L Blood Pressure 106/67 L 106/67 L Blood Pressure [Right Arm] 120/76 Blood Pressure Mean [Right Arm] 90 Blood Pressure Source Blood Pressure Source [Right Arm] Automatic Cuff Blood Pressure Position 02 Sat by Pulse Oximetry 100 98 98 Oxygen Delivery Method Room Air 02/12/25 11:00 02/12/25 11:30 02/12/25 12:00 Temperature Temperature Source Pulse Rate 60 60 60 Pulse Rate [Left] Respiratory Rate 11 L Blood Pressure 97/61 L 105/69 L 100/64 L Blood Pressure [Right Arm] Blood Pressure Mean [Right Arm] Blood Pressure Source Blood Pressure Source [Right Arm] Blood Pressure Position 02 Sat by Pulse Oximetry 97 97 95 Oxygen Delivery Method Room Air 02/12/25 13:05 Temperature 97.9 F Temperature Source Oral Pulse Rate 60 Pulse Rate [Left] Respiratory Rate 18 Blood Pressure 106/64 L Blood Pressure [Right Arm] Blood Pressure Mean [Right Arm] Blood Pressure Source Automatic Cuff Blood Pressure Source [Right Arm] Blood Pressure Position Sitting 02 Sat by Pulse Oximetry Oxygen Delivery Method Room Air Lab Data Labs: Lab Results 02/12/25 09:40: SARS-CoV-2 (PCR) Not detected, Influenza A Untype (PCR) Not detected, Influenza Type B (PCR) Not detected 02/12/25 09:50: WBC 8.9, RBC 5.15, Hgb 15.2, Hct 46.5, MCV 90.3, MCH 29.5, MCHC 32.7, RDW 12.3, Plt Count 271, MPV 10.5 H, Neut % (Auto) 65.7, Lymph % (Auto) 24.0, [place] % (Auto) 6.1, Eos % (Auto) 2.8, Baso % (Auto) 0.9, Neut # (Auto) 5.8, Lymph # (Auto) 2.1, [place] # (Auto) 0.5, Eos # (Auto) 0.3, Baso # (Auto) 0.1, PT 10.7, INR 0.96, D-Dimer 0.49, Sodium 139, Potassium 4.4, Chloride 102, Carbon Dioxide 29, Anion Gap 12.4, BUN 11, Creatinine 1.00, Estimated Creat Clear 152, Estimated GFR 77, Est GFR ( Amer) 93, Glucose 140 H, Calcium 9.6, Total Bilirubin 1.0, AST 28, ALT 23, Alkaline Phosphatase 67, Troponin I < 0.01, NT-Pro-B Natriuret Pep 187 H, Total Protein 7.6, Albumin 4.5, Globulin 3.1, Albumin/Globulin Ratio 1.5 02/12/25 12:22: Troponin I < 0.01 02/12/25 09:50 02/12/25 09:50 Response Orders (Tests/Meds): ED MEDICATIONS Discontinued Medications Generic Name Dose Route Start Last Admin Trade Name Freq PRN Reason Stop Dose Admin Ondansetron HCl 4 mg 02/12/25 10:07 02/12/25 10:52 Ondansetron 4mg/2ml Vial IV 02/12/25 10:08 4 mg ONCE ONE Administration ORDERS Category Date Time Status XR chest 2V Stat Exams 02/12/25 09:27 Completed BNP [NT Pro Brain Natriuretic Pep.] Stat Lab 02/12/25 09:50 Completed CBC w/Auto Diff [Complete Blood Count Auto Diff] Stat Lab 02/12/25 09:50 Completed CMP [Comprehensive Metabolic Panel] Stat Lab 02/12/25 09:50 Completed D-Dimer Stat Lab 02/12/25 09:50 Completed PT INR [Prothrombin Time INR] Stat Lab 02/12/25 09:50 Completed Rapid PCR Covid and Flu A/B Stat Lab 02/12/25 09:40 Completed Troponin I Q3H Lab 02/12/25 09:50 Completed Troponin I Q3H Lab 02/12/25 12:22 Completed MDM Narrative Medical Decision Narrative: 59 male presents emergency department with shortness of breath dizziness, nausea, differential diagnose, not limited to, CHF exacerbation, COPD exacerbation, ACS, cardiac arrhythmia, electrolyte disturbance, PE, viral illness, acute bronchitis, pneumonia, among others. I discussed this patient's case with attending physician Dr. Mcmillan Obtain basic laboratory studies, proBNP, chest x-ray, PT/INR, rapid PCR COVID and flu, troponin, EKG, D-dimer, will give 4 mg IV Zofran for nausea. CBC unremarkable PT/INR within normal limit No COVID-19 or influenza is detected via PCR CMP is notable for normal initial troponin, proBNP is minimally elevated at 187 otherwise unremarkable CMP D-dimer is negative at 0.49 thus ruling out PE/VTE I reviewed the patient's chest x-ray along the corresponding radiologic report, no acute cardiopulmonary process. Reexamination of the patient at 12 PM, patient is resting comfortably in bed, he has remained hemodynamically stable, denies any chest pain or dyspnea, states his lightheadedness and nausea have improved. Patient also did admit to some moderate caffeine consumption this morning, which he believes may have contributed to his symptomatology. Repeat troponin is less than 0.01, heart score is a 3, thus risk of MACE is low. Patient is cleared to be discharged home to self-care, patient has remained hemodynamically stable throughout his time in the emergency department, no active presyncopal, no lightheadedness, no chest pain, no shortness of breath or nausea type symptomatology. Patient's symptomatology could correspond with ongoing HFrEF not in acute exacerbation/coronary artery disease, patient will need to follow-up with cardiology for which he has slated appointment upcoming. Patient will continue take his dual antiplatelet therapy as prescribed as well as all other medication as prescribed. Patient voiced understanding and agreement with current treatment plan/discharge plan. Strict ED return precautions given. <Zaki Mcmillan MD - Last Filed: 02/13/25 09:09> Vital Signs Vital Signs: 02/12/25 09:34 02/12/25 10:20 02/12/25 10:30 Temperature 98.1 F Temperature Source Oral Pulse Rate 62 60 Pulse Rate [Left] 61 Respiratory Rate 16 11 L 8 L Blood Pressure 106/67 L 106/67 L Blood Pressure [Right Arm] 120/76 Blood Pressure Mean [Right Arm] 90 Blood Pressure Source Blood Pressure Source [Right Arm] Automatic Cuff Blood Pressure Position 02 Sat by Pulse Oximetry 100 98 98 Oxygen Delivery Method Room Air 02/12/25 11:00 02/12/25 11:30 02/12/25 12:00 Temperature Temperature Source Pulse Rate 60 60 60 Pulse Rate [Left] Respiratory Rate 11 L Blood Pressure 97/61 L 105/69 L 100/64 L Blood Pressure [Right Arm] Blood Pressure Mean [Right Arm] Blood Pressure Source Blood Pressure Source [Right Arm] Blood Pressure Position 02 Sat by Pulse Oximetry 97 97 95 Oxygen Delivery Method Room Air 02/12/25 13:05 Temperature 97.9 F Temperature Source Oral Pulse Rate 60 Pulse Rate [Left] Respiratory Rate 18 Blood Pressure 106/64 L Blood Pressure [Right Arm] Blood Pressure Mean [Right Arm] Blood Pressure Source Automatic Cuff Blood Pressure Source [Right Arm] Blood Pressure Position Sitting 02 Sat by Pulse Oximetry Oxygen Delivery Method Room Air Lab Data Labs: Lab Results 02/12/25 09:40: SARS-CoV-2 (PCR) Not detected, Influenza A Untype (PCR) Not detected, Influenza Type B (PCR) Not detected 02/12/25 09:50: WBC 8.9, RBC 5.15, Hgb 15.2, Hct 46.5, MCV 90.3, MCH 29.5, MCHC 32.7, RDW 12.3, Plt Count 271, MPV 10.5 H, Neut % (Auto) 65.7, Lymph % (Auto) 24.0, [place] % (Auto) 6.1, Eos % (Auto) 2.8, Baso % (Auto) 0.9, Neut # (Auto) 5.8, Lymph # (Auto) 2.1, [place] # (Auto) 0.5, Eos # (Auto) 0.3, Baso # (Auto) 0.1, PT 10.7, INR 0.96, D-Dimer 0.49, Sodium 139, Potassium 4.4, Chloride 102, Carbon Dioxide 29, Anion Gap 12.4, BUN 11, Creatinine 1.00, Estimated Creat Clear 152, Estimated GFR 77, Est GFR ( Amer) 93, Glucose 140 H, Calcium 9.6, Total Bilirubin 1.0, AST 28, ALT 23, Alkaline Phosphatase 67, Troponin I < 0.01, NT-Pro-B Natriuret Pep 187 H, Total Protein 7.6, Albumin 4.5, Globulin 3.1, Albumin/Globulin Ratio 1.5 02/12/25 12:22: Troponin I < 0.01 Response Orders (Tests/Meds): ED MEDICATIONS Discontinued Medications Generic Name Dose Route Start Last Admin Trade Name Freq PRN Reason Stop Dose Admin Ondansetron HCl 4 mg 02/12/25 10:07 02/12/25 10:52 Ondansetron 4mg/2ml Vial IV 02/12/25 10:08 4 mg ONCE ONE Administration ORDERS Category Date Time Status XR chest 2V Stat Exams 02/12/25 09:27 Completed BNP [NT Pro Brain Natriuretic Pep.] Stat Lab 02/12/25 09:50 Completed CBC w/Auto Diff [Complete Blood Count Auto Diff] Stat Lab 02/12/25 09:50 Completed CMP [Comprehensive Metabolic Panel] Stat Lab 02/12/25 09:50 Completed D-Dimer Stat Lab 02/12/25 09:50 Completed PT INR [Prothrombin Time INR] Stat Lab 02/12/25 09:50 Completed Rapid PCR Covid and Flu A/B Stat Lab 02/12/25 09:40 Completed Troponin I Q3H Lab 02/12/25 09:50 Completed Troponin I Q3H Lab 02/12/25 12:22 Completed MDM Narrative Medical Decision Narrative: 59 male presents emergency department with shortness of breath dizziness, nausea, differential diagnose, not limited to, CHF exacerbation, COPD exacerbation, ACS, cardiac arrhythmia, electrolyte disturbance, PE, viral illness, acute bronchitis, pneumonia, among others. I discussed this patient's case with attending physician Dr. Mcmillan Obtain basic laboratory studies, proBNP, chest x-ray, PT/INR, rapid PCR COVID and flu, troponin, EKG, D-dimer, will give 4 mg IV Zofran for nausea. CBC unremarkable PT/INR within normal limit No COVID-19 or influenza is detected via PCR CMP is notable for normal initial troponin, proBNP is minimally elevated at 187 otherwise unremarkable CMP D-dimer is negative at 0.49 thus ruling out PE/VTE I reviewed the patient's chest x-ray along the corresponding radiologic report, no acute cardiopulmonary process. Reexamination of the patient at 12 PM, patient is resting comfortably in bed, he has remained hemodynamically stable, denies any chest pain or dyspnea, states his lightheadedness and nausea have improved. Patient also did admit to some moderate caffeine consumption this morning, which he believes may have contributed to his symptomatology. Repeat troponin is less than 0.01, heart score is a 3, thus risk of MACE is low. Patient is cleared to be discharged home to self-care, patient has remained hemodynamically stable throughout his time in the emergency department, no active presyncopal, no lightheadedness, no chest pain, no shortness of breath or nausea type symptomatology. Patient's symptomatology could correspond with ongoing HFrEF not in acute exacerbation/coronary artery disease, patient will need to follow-up with cardiology for which he has slated appointment upcoming. Patient will continue take his dual antiplatelet therapy as prescribed as well as all other medication as prescribed. Patient voiced understanding and agreement with current treatment plan/discharge plan. Strict ED return precautions given. I was consulted by the ROLY, and we discussed the complexity of the problems being addressed.I approved the treatment and management plan for this patient?s care in the Emergency Department, thus performing a substantive portion of the medical decision making.Signed, MD VIOLET GeorgeA
--- NOTE | 2025-02-12 09:59 | PC.NURSE ---
SUZI VALENTINE AT BEDSIDE
--- NOTE | 2025-02-12 10:01 | PC.NURSE ---
PT TO XR
[2025-02-12 10:02] LABS: Basophils # 0.1 K/mm3 (0-0.2); Basophils % 0.9 % (0.1-2.0); Eosinophils # 0.3 Kmm3 (0.0-0.4); Eosinophils % 2.8 % (0.1-12.0); Hematocrit 46.5 % (42.0-52.0); Hemoglobin 15.2 g/dL (14.1-18.0); Immature Granulocytes # 0.04 10^3uL; Immature Granulocytes % 0.5 %; Lymphocytes # 2.1 K/mm3 (0.7-4.5); Mean Corpuscular HGB Conc 32.7 g/dL (31.8-35.4); Mean Corpuscular Hemoglobin 29.5 pg (27.0-31.2); Mean Corpuscular Volume 90.3 fl (80-94); Mean Platelet Volume 10.5 fl (7.4-10.4); Monocytes # 0.5 K/mm3 (0.1-1.0); Monocytes % 6.1 % (1.7-9.3); Neutrophils # 5.8 K/mm3 (1.8-7.8); Neutrophils % 65.7 % (37.0-80.0); Nucleated Red Blood Cells # 0 10^3/uL; Nucleated Red Blood Cells % 0 %; Platelet Count 271 K/mm3 (142-424); Red Blood Count 5.15 M/mm3 (4.60-6.20); Red Cell Distribution Width 12.3 % (11.5-17.5); Red Cell Distribution Width-SD 40.7 fL; White Blood Count 8.9 K/mm3 (4.8-10.8)
--- NOTE | 2025-02-12 10:04 | PC.NURSE ---
PT RETURNED FROM XR
[2025-02-12 10:14] LABS: Alanine Aminotransferase 23 U/L (12-78); Albumin Level 4.5 g/dl (3.5-5.0); Albumin/Globulin Ratio 1.5 (1.1-1.8); Alkaline Phosphatase 67 U/L (38-126); Anion Gap 12.4 mEq/L (5-15); Aspartate Amino Transferase 28 U/L (17-59); Blood Urea Nitrogen 11 mg/dl (9-20); Calcium 9.6 mg/dl (8.4-10.2); Carbon Dioxide 29 mmol/L (22.0-30.0); Chloride 102 mmol/L (98-107); Creatinine Clearance Estimated 152 mL/min (50-200); Estimated Glomerular Filt Rate 77 ml/min (>60); GFR (African American) 93 ML/MIN (>60); Globulin 3.1 g/dL (1.3-3.2); Glucose 140 mg/dl (74-100); Potassium 4.4 mmoL/L (3.5-5.1); Sodium 139 mmol/L (136-145); Total Protein,Serum 7.6 g/dl (6.3-8.2)
[2025-02-12 10:18] LABS: INR 0.96 (0.9-1.1); Prothrombin Time 10.7 seconds (10.1-12.5)
[2025-02-12 10:26] LABS: NT Pro Brain Natriuretic Pep. 187 pg/mL (0-125); Troponin I < 0.01 ng/ml (0.00-0.034)
[2025-02-12 10:34] LABS: D-Dimer 0.49 ug/mL (0.0-0.5)
[2025-02-12] MEDS: ONDANSETRON 4MG/2ML VIAL 4 MG IV (10:52)
--- NOTE | 2025-02-12 10:55 | PC.NURSE ---
PT MEDICATED PER EMAR, UPDATED ON POC. WATER PER PT REQUEST. CALL LIGHT WITHIN REACH
--- NOTE | 2025-02-12 12:24 | PC.NURSE ---
2nd trop sent at 12:22
[2025-02-12 12:54] LABS: Troponin I < 0.01 ng/ml (0.00-0.034)
== END 2025-02-12 13:05 | disposition home or self-care (01) ==
PROVIDERS: Physician Assistant; Emergency Provider Emergency Medicine; PCP Family Medicine
DX: R06.02 Shortness of breath (principal); I11.0 Hypertensive heart disease with heart failure; I50.20 Unspecified systolic (congestive) heart failure; I44.4 Left anterior fascicular block; Z95.810 Presence of automatic (implantable) cardiac defibrillator; Z87.891 Personal history of nicotine dependence
CPT/HCPCS: 71046; 80053; 83880; 84484; 85025; 85378; 85610; 87636; 93005; 96374; 99284; J2405

== ENCOUNTER 2025-03-15 13:41 | Outpatient (CLI) | payer BC, SELFPAY ==
--- OUTSIDE RECORDS SUMMARY | 2024-10-25 05:30 | XMS_ITS ---
Author Organization [facility] Address [address] [facility] [address] ROBEL Hernandez [id number] Care Team Providers Care Assistant Professor Of English Name Role Phone Ji Salinas Primary Care Provider Allergies Allergen (clinical drug ingredient) Drug/Non Drug Allergy documented on EMR Reaction Allergy Type Onset Date Status codeine Codeine Unknown Drug Allergy Active Results Component Value Reference Range Notes P-Comprehensive Metabolic Pa mulu (CMP) Reviewed date:10/27/2024 09:42:14 AM Interpretation: Normal Performing Lab: Notes/Report: Test performed by [facility] [address] , [address], [place] [address] Remigio Baker MD, Avp CLIA: [id number] Sodium 142 135-145 mmol/L Potassium 4.6 3.5-5.3 [...] Normal Performing Lab: Notes/Report: Test performed by [facility] [address] [place] [address] [address], [place] [address] Remigio Baker MD, Avp CLIA: [id number] Thyroxine Free (free T4) 1.33 0.86-1.76 ng/dL P-Lipid Panel Reviewed date:10/27/2024 09:42:14 AM Interpretation:trigs 157, non-hdl 140 Performing Lab: Notes/Report: Test performed by [facility] [address] [place] [address] [address], [place] [address] Remigio Baker MD, Avp CLIA: [id number] Cholesterol 182 <200 mg/dL Triglycerides 157 <150 [...] Normal Performing Lab: Notes/Report: Test performed by [facility] [address] , [place] [address] Remigio Baker MD, Avp CLIA: [id number] PSA 0.96 <4.00 ng/mL Please note this is an ultrasensitive PSA assay with a lower limit of detection of 0.014 ng/mL. This test is performed by the [employer] ECLIA methodology. Values obtained with different assay methods or kits cannot be directly compared. P-TSH Reviewed date:10/27/2024 09:42:14 AM Interpretation: Performing Lab: Notes/Report: Test Cancelled Test Cancelled Test Cancel led P-TSH reflex to FT4 Reviewed date:10/27/2024 09:42:14 AM Interpretation: Normal Performing Lab: Notes/Report: Test performed by [facility] [address] , [address], [place] [address] Remigio Baker MD, Avp CLIA: [id number] TSH reflex to FT4 2.27 0.43-5.25 mU/L P-Microalbumin/Creatinine, R andom Urine Sample Reviewed date:10/27/2024 09:42:14 AM Interpretation: Normal Performing Lab: Notes/Report: Test performed by [facility] [address] , [place] [address] Remigio Baker MD, Avp CLIA: [id number] Albumin/Creatinine Ratio, Urine <22.2 0-30 ug/mg Microalbumin, Urine, Random <0.3 Creatinine, Urine 13.5 P-Vitamin D 25-Hydroxy Reviewed date:10/27/2024 09:42:14 AM Interpretation:37 Performing Lab: Notes/Report: Test performed by [facility] [address] , [place] [address] Remigio Baker MD, Avp CLIA: [id number] Vitamin D 25-Hydroxy 37.0 30.0-100.0 ng/mL Interpretation [...] MCG TAKE 1 TABLE T BY MOUTH DAILY; Duration: 90 days Active Sildenafil Citrate 20 MG 1 to 5 tablet O rally Once a day as needed 04/20/2023 Active Spironolactone 25 MG 1 tablet Orally Two times a day; Duration: 90 days Active Furosemide 40 MG 1 tablet Orally Once a day as needed; Duration: 90 days 04/20/2023 Active Entresto 24-26 MG 1 tab(s) orally 2 ti mes a day; Duration: 90 days Active Darlin Aspirin EC Low Dose 81 MG 1 tab(s) orally once a day Active Carvedilol 3.125 MG 1 tab(s) orally 2 ti mes a day; Duration: 90 days Active Atorvastatin Calcium 40 MG 1 tab(s) oral ly once a day; Duration: 90 days Active Vitamin D3 125 MCG (5000 UT) 1 cap(s) or ally once a day 01/05/2018 Active Vital Signs Weight 298.2 lbs 10/25/2024 Blood pressure systolic 110 mm Hg 10/25/19 25 Blood pressure diastolic 68 mm Hg 025 Heart Rate 75 /min 10/25/2024 Height 71 in 10/25/2024 BMI 41.59 kg/m2 10/25/2024 Encounters Encounter Location Date Provider Diagnosis [facility] [address] [id number] 10/25/2024 Ji Salinas Essential hypertensi on I10 [...] MG 1 tablet Orally Two times a day; Duration: 90 days Furosemide 40 MG 1 tablet Orally Once a day as needed; Duration: 90 days 04/20/2023 Entresto 24-26 MG 1 tab(s) orally 2 ti mes a day; Duration: 90 days Carvedilol 3.125 MG 1 tab(s) orally 2 ti mes a day; Duration: 90 days Atorvastatin Calcium 40 MG 1 tab(s) oral ly once a day; Duration: 90 days Next Appt Details Follow Up: 6 Months, Reason: Provider Name:Ji Zaldivar , 04/25/2025 09:30:00 AM, [address] [facility], [address], [place], [place], [id number], Progress Notes * LILA DIOPDOB:1965 (59 yo M)Acc No.[id number]:10/25/2024 Progress Notes Patient: LILA GUERRA Provider: Julainne Salinas M.D. :1965 A ge:59 Y S ex:Male Date:10/25/2024 Address:[address] [place] [id number] Subjective: * Chief Complaints: * 1 . [...] Medical History: C oronary Artery Disease s/p SD with stent 11/11, Hypertension, Hyperlipidemia, 30% EF on cath 03/2010, 41% EF on cardiolyte GXT 05/2014, 35-40% EF 03/2016, SD 07/20/17 - Dr. Turner, Left Heart Cath Jul 2017, EF 20-25%, AICD placed., Cardiomyopathy. * Surgical History: H ernia Repair 2003, LT Leg Fatty Tumor Removal before 1999, Stent RT Side of Heart 11/10/2007, Heart Cath 03/2010, Defibulator 07/22/2017, Colonoscopy 2017, EGD with esophageal dilitation 2017. * Hospitalization/Major Diagno stic Procedure: M I- [facility] 07/20-, Heart Shock- [facility] ER 09/04/2017, Chest Pain- [facility] ER 10/19/2017, SOA- [facility] 09/03-. * Family History: F ather: [...] C ardiology: General Appearance: p leasant, NAD. H EENT: u nremarkable. H eart sounds: R RR, normal S1, S2. L ungs: c lear, no rales or wheezes.?Extremities: n o leg edema. Assessment: * Assessment: [...] icroalbumin, Urine, Random <0.3 - mg/dL * Alma Butts 10/27/2024 9:42: [...] D 25-Hydroxy 37.0 30.0-100.0 - ng/mL * Alma Butts 10/27/2024 9:42: [...] HG * Follow Up: 6 Months * Images: Billing Information: * Visit Code: 17765 Office Visit, Est Pt., Level 4. * Procedure Codes: 3074F SYST BP LT 130 MM HG. 3078F DIAST BP < 80 MM HG. * Electronic signature of Jessie Salinas MD on 03/15/2025 at 01:42 PM EDT Sign off status: Pending * Provider: Julianne Salinas M.D. Date: 0 10/25/2024 Generated for Kasandrai ng/Famarybethg/eTransmitting on: 0 03/15/2025 01:42 PM EDT History and Physical Notes * HPI [...]
--- OUTSIDE RECORDS SUMMARY | 2025-02-09 05:45 | XMS_ITS ---
Author Organization [facility] Address [address] [facility] [facility] [address] [place] [id number] Care Team Providers Care Psychiatric Technician Assistant Name Role Phone Ji Salinas Primary Care Provider Allergies Allergen (clinical drug ingredient) Drug/Non Drug Allergy documented on EMR Reaction Allergy Type Onset Date Status codeine Codeine Unknown Drug Allergy Active Results Component Value Reference Range Notes Glucose (In-House) Reviewed date:02/09/2025 12:07:18 PM Interpretation:131 Performing Lab: Notes/Report: 131 blood glucose 131 74 - 106 mg/dL Glycohemoglobin A1c (in hous e) Reviewed date:02/09/2025 12:07:19 PM Interpretation:6.0% Performing Lab: Notes/Report: 6.0% glycohemoglobin 6.0% 5 - 6.5 % REASON FOR VISIT [facility] f/u Medications Medication SIG (Take, Route, Frequency, Duration) Notes Start Date End Date Status Entresto 24-26 MG 1 tab(s) orally 2 times a day Active Carvedilol 6.25 MG 1 tablet with food Orally Twice a day Active Atorvastatin Calcium 40 MG 1 tab(s) oral ly once a day; Duration: 90 days Active Levothyroxine Sodium 25 MCG TAKE 1 TABLET BY MOUTH DAILY; Duration: 90 days Active Darlin Aspirin EC Low Dose 81 MG 1 tab(s) orally once a day Active Prasugrel HCl 10 MG as directed Orally Active Jardiance 10 MG 1 tablet Orally Once a day; Duration: 90 days Active Sildenafil Citrate 20 MG 1 to 5 tablet O rally Once a day as needed 04/20/2023 Not-Taking Vitamin D3 125 MCG (5000 UT) 1 cap(s) orally once a day 01/05/2018 Not-Taking Furosemide 40 MG TAKE 1 TABLET BY ANA TH DAILY NEEDED; Duration: 90 Active Spironolactone 25 MG 1 tablet Orally Two times a day; Duration: 90 days Active Vital Signs Weight 292.2 lbs 02/09/2025 Blood pressure systolic 120 mm Hg 02/10/20 25 Blood pressure diastolic 70 mm Hg 025 Heart Rate 88 /min 02/09/2025 Height 71 in 02/09/2025 BMI 40.75 kg/m2 02/09/2025 Encounters Encounter Location Date Provider Diagnosis [facility] [address] [facility] 36 [facility] [address] [place] [id number] 02/09/2025 Ji Salinas Coronary arterioscle rosis I25.10 ; Ischemic cardiomyopathy I25.5 ; IFG (impaired fasting glucose) R73.01 and Essential hypertension I10 Assessments Encounter Date Diagnosis (ICD Code) Assessment Notes Treatment Notes Treatment Clinical Notes Section Notes 02/09/2025 Coronary arteriosclerosis (ICD-10 - I25.10) 02/09/2025 Ischemic cardiomyopathy (ICD-10 - I25.5) 02/09/2025 IFG (impaired fasting glucose) (ICD-10 - R73.01) 02/09/2025 Essential hypertension (ICD-10 - I10) Plan Of Treatment Medication Medication Name Sig Start Date Stop Date Notes Entresto 24-26 MG 1 tab(s) orally 2 ti mes a day Carvedilol 3.125 MG 1 tab(s) orally 2 ti mes a day Darlin Aspirin EC Low Dose 81 MG 1 tab(s) orally once a day Prasugrel HCl 10 MG as directed Orally Jardiance 10 MG 1 tablet Orally Once a day; Duration: 90 days Next Appt Details Follow Up: as scheduled,and prn, Reason: Provider Name:Ji Zaldivar ry, 04/25/2025 09:30:00 AM, [address] [facility] [address] [facility], [address], [place], [phone], Progress Notes * LILA DIOPDOB:1965 (59 yo M)Acc No.[id number]:02/09/2025 Progress Notes Patient: LILA GUERRA Provider: Julianne Salinas M.D. :1965 A ge:59 Y S ex:Male Date:02/09/2025 Address:[address] [place] [address] [facility] [place], [place], [id number] Subjective: * Chief Complaints: * 1 . H f/u. * HPI: H PI: 59 year old male presents with c/o Here for follow up on: P t is here today for a f/u from [facility]. Pt was seen on 01/26 and d/c on 01/27. Pt was seen for having an outpatient heart cath and multiple stents placed. Pt was admitted for monitoring, IVF, and repeat labs the following morning. States he is unsure why he was started on Jardiance, wonders if he has diabetes. * ROS: D ERMATOLOGY: no R krys. n o H americo. G ASTROENTEROLOGY: no N ausea. n o V omiting. U ROLOGY: no D ifficulty urinating. n o B lood in urine. * Medical History: C oronary Artery Disease s/p [place] with stent 11/11, Hypertension, Hyperlipidemia, 30% EF on cath 03/2010, 41% EF on cardiolyte GXT 05/2014, 35-40% EF 03/2016, [place] 07/20/17 - Dr. Turner, Left Heart Cath Jul 2017, EF 20-25%, AICD placed., Cardiomyopathy. * Surgical History: H ernia Repair 2003, LT Leg Fatty Tumor Removal before 1999, Stent RT Side of Heart 11/10/2007, Heart Cath 03/2010, Defibulator 07/22/2017, Colonoscopy 2017, EGD with esophageal dilitation 2017. * Hospitalization/Major Diagno stic Procedure: M I- [facility] 07/20-, Heart Shock- [facility] ER 09/04/2017, Chest Pain- [facility] ER 10/19/2017, SOA- [facility] 09/03-. * Family History: F ather: [...] , Frequency: ,Years: , Determination:. * Medications: T aking Prasugrel HCl 10 MG Tablet as directed Orally , Taking Jardiance 10 MG Tablet 1 tablet Orally Once a day , Taking Carvedilol 6.25 MG Tablet 1 tablet with food Orally Twice a day , Taking Darlin Aspirin EC Low Dose 81 MG Tablet Delayed Release 1 tab(s) orally once a day , Taking Levothyroxine Sodium 25 MCG Tablet TAKE 1 TABLET BY MOUTH DAILY , Taking Atorvastatin Calcium 40 MG Tablet 1 tab(s) orally once a day , Taking Entresto 24-26 MG Tablet 1 tab(s) orally 2 times a day , Taking Spironolactone 25 MG Tablet 1 tablet Orally Two times a day , Taking Furosemide 40 MG Tablet TAKE 1 TABLET BY MOUTH DAILY NEEDED , Not-Taking Vitamin D3 125 MCG (5000 UT) Capsule 1 cap(s) orally once a day , Not-Taking Sildenafil Citrate 20 MG Tablet 1 to 5 tablet Orally Once a day as needed , Not-Taking Carvedilol 3.125 MG Tablet 1 tab(s) orally 2 times a day , Medication List reviewed and reconciled with the patient * Allergies: C odeine. Objective: * Vitals: W t: 292.2, Temp: 98.4, BP: 120/70, HR: 88, Nurse: cathryn, Ht: 71, BMI:40.75. * Examination: G eneral Examination: General Appearance: N AD. H eart: R SR. L ungs:?clear to auscultation. E xtremities: n o leg edema. Assessment: * Assessment: 1. C oronary arteriosclerosis - I25.10 (Primary) 2 . I schemic cardiomyopathy - I25.5 3 . I FG (impaired fasting glucose) - R73.01 4 . E ssential hypertension - I10 Plan: * Treatment: 2. I schemic cardiomyopathy Refill Jardiance Tablet, 10 MG, 1 tablet, Orally, Once a day, 90 days, 90 Tablet, Refills 1; C ontinue Entresto Tablet, 24-26 MG, 1 tab(s), orally, 2 times a day. 3. I FG (impaired fasting glucose) L AB: Glucose (In-House) (Collection Date & Time - 02/09/2025) 1 31 Value Reference Range b lood glucose 131 74 - 106 mg/dL * Almaz Ibarra 02/09/2025 10:07 :56 AM EDT > Provider reviewed results while patient in office. ?LAB: Glycohemoglobin A1c (in house) (Collection Date & Time - 02/09/2025)? 6.0%* Value Reference Range g lycohemoglobin 6.0% 5 - 6.5 % * Almaz Ibarra 02/09/2025 10:08 :18 AM EDT > Provider reviewed results while patient in office. 4.?Essential hypertension? Stop Carvedilol Tablet, 3.125 MG, 1 tab(s), orally, 2 times a day.?? * Procedure Codes: 3 6416 CAPILLARY BLOOD DRAW, 68920 GLUCOSE TEST, 52362 GLYCATED HEMOGLOBIN TEST, Modifiers: QW , 3044F HG A1C LEVEL LT 7.0%, 1036F TOBACCO NON-USER, G8783 BP SCR PRFRM RCMDD DEFIND SCR INTVL, G8752 MOST RECENT SYSTOLIC BP < 140MM HG, G8754 MOST RECENT DIASTOLIC BP < 90MM HG * Follow Up: a s scheduled,and prn * Images: Billing Information: * Visit Code: 53382 Office Visit, Est Pt., Level 4. * Procedure Codes: 61489 CAPILLARY BLOOD DRAW. 24062 GLUCOSE TEST. 41184 GLYCATED HEMOGLOBIN TEST. Modifiers: QW 3044F HG A1C LEVEL LT 7.0%. 1036F TOBACCO NON-USER. G8783 BP SCR PRFRM RCMDD DEFIND SCR INTVL. G8752 MOST RECENT SYSTOLIC BP < 140MM HG. G8754 MOST RECENT DIASTOLIC BP < 90MM HG. * Electronic signature of Jessie Salinas MD on 03/15/2025 at 01:42 PM EDT Sign off status: Pending * Provider: Julianne Salinas M.D. Date: 02/09/2025 Generated for Nette fried/Jessica/eTamenasmitting on: 0 03/15/2025 01:42 PM EDT History and Physical Notes * HPI (History of Present Illness) Category Sub-Category Detail Notes Category Not es HPI Here for follow up on: Pt is her e today for a f/u from [facility]. Pt was seen on 01/26 and d/c on 01/27. Pt was seen for having an outpatient heart cath and multiple stents placed. Pt was admitted for monitoring, IVF, and repeat labs the following morning. States he is unsure why he was started on Jardiance, wonders if he has diabetes Examination Category Sub-Category Detail Notes Category Not es General Examination Heart: RSR Lungs: clear to auscultatio n Extremities: no leg edema General Appearance: NAD
--- OUTSIDE RECORDS SUMMARY | 2025-02-19 11:51 | XMS_ITS ---
Author Organization [facility] Address [address] [facility] [address] [place] [id number] Care Team Providers Care Gi Physician Name Role Phone Ji Salinas Primary Care Provider REASON FOR VISIT due colonoscopy Encounters Encounter Location Date Provider Diagnosis [facility] [address] [place] [id number] 02/19/2025 Ji Salinas Plan Of Treatment Next Appt Details Provider Name:Ji Zaldivar ry, 04/25/2025 09:30:00 AM, [address], [address], [place], [place], [id number], Progress Notes * LILA DIOPDOB:1965 (59 yo M)Acc No.[id number]:02/19/2025 Patient: LILA GUERRA :1965 A ge:59 Y S ex:Male Address:[address] [place] [address] Subjective: * Chief Complaints: * D ue colonoscopy * Medical History: * Surgical History: * Hospitalization/Major Diagno stic Procedure: * Medications: Objective: * Vitals: * Physical Examination: Assessment: Plan: * Treatment: * Procedure Codes: * true * Date: Generated for Nette fried/Jessica/eTamenasmbola on: 03/15/2025 01:42 PM EDT
--- OUTSIDE RECORDS SUMMARY | 2025-03-15 13:41 | XMS_ITS | Continuity of Care Document ---
Author Name [facility] Organization [facility] Care Team Providers Care Rn Emergency Room Name Role Phone [facility] Unavailable Unavailable Procedures [...] OUTPATIENT FACILITY, APPROXIMATELY 20 TO 30 MINUTES [id number] WITH THE PATIENT 09/10/2003 [facility] AND/OR CONVEYANCE O F SPECIMEN FOR TRANSFER FROM THE OFFICE TO A LABORATORY 09/10/2003 [facility] Social History Combined list of available smoking, tobacco, and other social history from Department of Defense and Veterans Affairs facilities. Social History Type Response Date Comment Sourc e This section is an empty social history section. [facility]
--- OUTSIDE RECORDS SUMMARY | 2025-03-15 13:42 | XMS_ITS | Patient Health Record ---
[facility] Address [address] [facility] [address] [place] [phone] Care Team Providers Care Retail Presentation Specialist Name Role Phone Ji Salinas Primary Care Provider Allergies Allergen (clinical drug ingredient) Drug/Non Drug Allergy documented on EMR Reaction Allergy Type Onset Date Status codeine Codeine Unknown Drug Allergy Active Results Component Value Reference Range Notes P-Vitamin D 25-Hydroxy Reviewed date:04/27/2024 08:34:04 AM Interpretation:24.2 Performing Lab: Notes/Report: Test performed by [facility] [address] [place] [address] , [address], [place] [address] Remigio Baker MD, Core Setter CLIA: [id number] Vitamin D 25-Hydroxy 24.2 30.0-100.0 ng/mL Interpretation of Vitamin D 25 OH: < 20 ng/mL - Deficiency 20 - 29 ng/mL - Insufficiency 30 - 100 ng/mL - Sufficiency > 100 ng/mL - Super-therapeutic- toxicity may occur above this level. Clinical correlation required. Glycohemoglobin A1c (in hous e) Reviewed date:04/27/2024 08:34:04 AM Interpretation:5.7 Performing Lab: Notes/Report: 5.7 glycohemoglobin 5.7% 5 - 6.5 % Glucose (In-House) Reviewed date:04/27/2024 08:34:04 AM Interpretation:144 Performing Lab: Notes/Report: 144 blood glucose 144 74 - 106 mg/dL Glucose (In-House) Reviewed date:02/09/2025 12:07:18 PM Interpretation:131 Performing Lab: Notes/Report: 131 blood glucose 131 74 - 106 mg/dL Glycohemoglobin A1c (in hous e) Reviewed date:02/09/2025 12:07:19 PM Interpretation:6.0% Performing Lab: Notes/Report: 6.0% glycohemoglobin 6.0% 5 - 6.5 % P-Comprehensive Metabolic Pa mulu (CMP) Reviewed date:10/27/2024 09:42:14 AM Interpretation: Normal Performing Lab: Notes/Report: Test performed by [facility] [address] [place] [address] , [address], [place] [address] Remigio Baker MD, Core Setter CLIA: [id number] Sodium 142 135-145 mmol/L Potassium 4.6 3.5-5.3 [...] Normal Performing Lab: Notes/Report: Test performed by [facility] [address] [place] [address] , [place] [address] Remigio Baker MD, Core Setter CLIA: [id number] Thyroxine Free (free T4) 1.33 0.86-1.76 ng/dL P-Lipid Panel Reviewed date:10/27/2024 09:42:14 AM Interpretation:trigs 157, non-hdl 140 Performing Lab: Notes/Report: Test performed by [facility] [address] [place] [address] , [place] [address] Remigio Baker MD, Core Setter CLIA: [id number] Cholesterol 182 <200 mg/dL Triglycerides 157 <150 [...] Normal Performing Lab: Notes/Report: Test performed by [facility] [employer] [address] [place] [address] , [address], [place] [address] Remigio Baker MD, Core Setter CLIA: [id number] PSA 0.96 <4.00 ng/mL Please note this [...] Normal Performing Lab: Notes/Report: Test performed by [facility] [address] [place] [address] , [place] [address] Remigio Baker MD, Core Setter CLIA: [id number] TSH reflex to FT4 2.27 0.43-5.25 mU/L P-Microalbumin/Creatinine, R andom Urine Sample Reviewed date:10/27/2024 09:42:14 AM Interpretation: Normal Performing Lab: Notes/Report: Test performed by [facility] [address] [place] [address] , [address], [place] [address] Remigio Baker MD, Core Setter CLIA: [id number] Albumin/Creatinine Ratio, Urine <22.2 0-30 ug/mg Microalbumin, Urine, Random <0.3 Creatinine, Urine 13.5 P-Vitamin D 25-Hydroxy Reviewed date:10/27/2024 09:42:14 AM Interpretation:37 Performing Lab: Notes/Report: Test performed by [facility] [address] [place] [address] , [address], [place] [address] Remigio Baker MD, Core Setter CLIA: [id number] Vitamin D 25-Hydroxy 37.0 30.0-100.0 ng/mL Interpretation [...] tab(s) orally 2 times a day Active Levothyroxine Sodium 25 MCG 1 tablet in the morning on an empty stomach Orally Once a day; Duration: 90 days Active Darlin [...] times a day; Duration: 90 days Active Atorvastatin Calcium 40 MG 1 tab(s) oral ly once a day; Duration: 90 days Active Immunizations Vaccine Route Administration Date Status Comme nts COVID 19 Moderna Unknown 11/28/2020 Administered COVID 19 Moderna Unknown 12/26/2020 Administered xFluzone (6mos and older)-trivalent Unknown 05/07/2009 Administered Problems Problem Type SNOMED Code ICD Code Onset Dates Problem Status W/U Status Risk Notes Problem Hypothyroidism (44713048) Hypothyroidism (acquired) (E03.9) Active confirmed Problem Vitamin D deficiency (79939585) Vitamin D deficiency (E55.9) Active confirmed Problem Essential hypertension (41215889) Essential hypertension (I10) Active confirmed Problem Plantar fasciitis of right foot (20103407067909075) Plantar fasciitis of right foot (M72.2) Active confirmed Problem Mixed hyperlipidemia (620308576) Mixed hyperlipidemia (E78.2) Active confirmed Problem Ischemic cardiomyopathy (061123386) Ischemic cardiomyopathy (I25.5) Active confirmed Problem Pain in right foot (113809912020997) Pain in right foot (M79.671) Active confirmed Problem Coronary arteriosclerosis (52694283) Coronary arteriosclerosis (I25.10) Active confirmed Problem Pain in limb (92500861) Pain of left foot (M79.672) Active confirmed Problem Erectile dysfunction (disorder) (028442689) Erectile dysfunction, unspecified erectile dysfunction type (N52.9) Active confirmed Problem Dysphagia (45240221) Dysphagia, unspecified type (R13.10) Active confirmed Problem Vitamin D deficiency (04761599) Low vitamin D level (E55.9) Active confirmed Problem Heart failure (40539692) Chronic congestive heart failure, unspecified congestive heart failure type (I50.9) Active confirmed Problem General weakness (80523266) General weakness (R53.1) Active confirmed Problem Intra-articular loose body (8287606) Intra-articular loose body (M24.00) Active confirmed Problem Automatic implantable cardiac defibrillator in situ (548423065) History of implantable cardioverter-defib rillator (ICD) placement (Z95.810) Active confirmed Problem Implantable cardioverter-defib rillator (ICD) discharge (Z45.02) Active confirmed Vital Signs Heart Rate 88 /min 02/09/2025 Blood pressure diastolic 70 mm Hg 02/09/2025 Height 71 in 02/09/2025 Blood pressure systolic 120 mm Hg 02/09/2025 Weight 292.2 lbs 02/09/2025 BMI 40.75 kg/m2 02/09/2025 Encounters Encounter Location Date Provider [facility] [address] [place], [place] [id number] 04/26/2024 Ji [place] Chronic congestive h eart failure, unspecified congestive heart failure type I50.9 ; Vitamin D deficiency E55.9 and Hyperglycemia R73.9 [facility] [address] [place], [place] [id number] 10/25/2024 Ji [place] Essential hypertensi on I10 ; Mixed hyperlipidemia E78.2 ; Low vitamin D level E55.9 ; Hypothyroidism (acquired) E03.9 ; Chronic congestive heart failure, unspecified congestive heart failure type I50.9 and Prostate cancer screening Z12.5 [facility] [address] [place], [place] [id number] 02/09/2025 Ji [place] Coronary arterioscle rosis I25.10 ; Ischemic cardiomyopathy I25.5 ; IFG (impaired fasting glucose) R73.01 and Essential hypertension I10 [facility] [address] [place], [place] [id number] 04/26/2024 Ji [place] [facility] [address] [place], [place] [id number] 04/27/2024 Ji [place] [facility] [address] [place], [place] [id number] 10/27/2024 Ji [place] [facility] [address] [place], [place] [phone] 02/19/2025 Ji [place] Assessments Encounter Date Diagnosis (ICD Code) Assessment [...] - E55.9) 04/26/2024 Hyperglycemia (ICD-10 - R73.9) 10/25/2024 Hypothyroidism (acquired) (ICD-10 - E03.9) 02/09/2025 Essential hypertension (ICD-10 - I10) 10/25/2024 Chronic congestive heart failure, unspecified congestive heart failure type (ICD-10 - I50.9) 10/25/2024 Prostate cancer screening (ICD-10 - Z12.5) Plan Of Treatment Next Appt Details Provider Name:Ji Zaldivar , 04/25/2025 09:30:00 AM, [address] [facility], [address], [place], [place], [id number], Insurance Providers Payer Name Payer Address Payer Phone Subscriber Number Group Number Insured Name Patient Relationship to Insured Coverage Start Date Coverage End Date [facility] [address] [place] [address] [phone] [id number] LILA DIOP Self - patient is the insured Medications Administered Medication Instructions Date of Administration Dosage Notes Bicillin LA 1,200,000 12/03/2005 Medical (General) History Medical History History ICD Code Coronary Artery Disease s/p [place] with sten t 11/11 Hypertension Hyperlipidemia 30% EF on cath 03/2010 41% EF on cardiolyte GXT 05/2014 35-40% EF 03/2016 [place] 07/20/17 - Dr. Turner Left Heart Cath Jul 2017, EF 20-25%, AIC D placed. Cardiomyopathy Surgical History Surgery Date(Month/Year) Hernia Repair 2003 LT Leg Fatty Tumor Removal before 1999 Stent RT Side of Heart 11/10/2007 Heart Cath 03/2010 Defibulator 07/22/2017 Colonoscopy 2017 EGD with esophageal dilitation 2017 Hospitalization History Reason Date(Month/Year) [place]- [facility] 09/03- Chest Pain- [facility] ER 10/19/2017 Heart Shock- [facility] ER 09/04/2017 [place]- [facility] 07/20-
--- OUTSIDE RECORDS SUMMARY | 2025-03-15 13:43 | XMS_ITS | Clinical Summary ---
Author Organization Healthcare Address [address] [place] [address] Care Team Providers Care Award Clerk Name Role Phone Unavailable Primary Care Provider [...] 2017 [facility]-Zoster Vaccines (1 of 2) 2017 [facility]S-[id number]-00 Vaccine (2023- season) 2024 12/26/2020, 11/28/2020 [facility]-Influenza Vaccine (#1) 2025 05/07/2009 HPV Vaccines Aged Out No [...] patient's age to complete [place] [address]
--- NOTE | 2025-03-15 13:45 | CA_ITS ---
APPROVED REPORT EXAM: Comprehensive 2D, Doppler, and color-flow Echocardiogram Non Ferrous Material Handler: Daisy Montes RVT Ht: 5 ft 11 in Wt: 295lbs BSA: 2.49 BP: 135/72 mmHg Indications: HFrEF,Coronary Artery Disease 2D Dimensions IVSd 0.50 cm M: 0.6-1.2 LVEF (Visual) 34.00 % PWd 0.70 cm M: 0.6 - 1.2 LA Volume 39.70 mL LVDd 5.71 cm M: 4.2 - 5.9 LA Volume Index 15.94 mL/m2 (M/F) 16-34 LVDs 4.77 cm M: 2.5 - 4.0 M-Mode Dimensions RVDd 2.59 cm (0.9-2.6) LA Diam 3.67 cm (1.9-4.0) LVDd 4.64 cm (3.5-5.7) LVDs 3.43 cm (3.5-5.7) IVSd 0.31 cm (0.6-1.1) PWd 0.62 cm (0.6-1.1) EF (Teich) 51.20% FS 26.10% EDV (Teich) 99.30 mL ESV (Teich) 48.50 mL LV Diastology E Decel Time 227 (160-240 msec) E/A Ratio 1.0 Aortic Valve RACHID Index 1.42 cm2/m2 AoV Peak Vinod. 146.0 (50-130 cm/s) AO Peak GR. 8.50 mmHg AO Mean GR. 4.00 (<5 mmHg) AO VTI 26.6 (18-25 cm) RACHID (VTI) 3.63 (2.5-4.5 cm2) Mitral Valve MV E Max Vinod. 72.0 (40-130 cm/s) MV A Velocity 74.0 (40-130 cm/s) E/A Ratio 0.97 MV PHT 66.0 ms Pulmonary Valve PV Peak Velocity 99.0 (50-150 cm/s) Left Ventricle The left ventricle is normal size. 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 The left ventricular systolic function is moderately reduced. There is increased LV wall thickness. There is moderate global hypokinesis. There is severe hypokinesis of the septal, anteroseptal, and inferoseptal LV shafer. The LV apex is akinetic. Grade 1 diastolic dysfunction is present. LVEF is 35-40%. Right Ventricle Right ventricle is mildly dilated. The right ventricular systolic function is normal. Atria Left atrium is mildly dilated. Right atrium is mildly dilated. There is no Doppler evidence of interatrial shunt. Aortic Valve The aortic valve is mildly thickened. There is no aortic valvular stenosis. Trace aortic regurgitation. Mitral Valve The mitral valve is normal in structure. No evidence of mitral valve stenosis. Mild mitral regurgitation. Tricuspid Valve Tricuspid valve is grossly normal in structure and function. Mild tricuspid regurgitation. RVSP is 20-25 mmHg. Pulmonic Valve The pulmonary valve is normal in structure. Mild pulmonic regurgitation. Great Vessels The aortic root is normal in size. IVC is normal in size and collapses >50% with inspiration. Pericardium There is no pericardial effusion. Other Information Study Quality: Technically Difficult Conclusion Technically difficult study due to poor acoustic windows. Moderate reduction in LV systolic function (LVEF 35-40%). 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 Severe hypokinesis of the septal, anteroseptal, and inferoseptal LV shafer. The LV apex is akinetic. Mild RV dilation with normal RV function. Mild biatrial dilation. Mild MR, mild TR, mild PI. Compared to prior study from 09/28/2023, the LV systolic function is slightly improved, but continues to be moderately reduced. In the setting of technically difficult study and known history of apical aneurysm, future TTE evaluations are suggested with administration of ultrasound enhancing agent to better delineate the LV endocardial borders. Electronically signed by : Constance Callahan MD 03/24/2025 19:46:05
== END 2025-03-15 23:59 | disposition home or self-care (01) ==
LOC: RT 13:41
PROVIDERS: PCP Family Medicine; Visit Provider Physician Assistant
DX: I08.8 Other rheumatic multiple valve diseases (principal); I11.0 Hypertensive heart disease with heart failure; I50.20 Unspecified systolic (congestive) heart failure; I25.5 Ischemic cardiomyopathy; I25.10 Atherosclerotic heart disease of native coronary artery without angina pectoris; R93.1 Abnormal findings on diagnostic imaging of heart and coronary circulation; Z86.79 Personal history of other diseases of the circulatory system; Z95.5 Presence of coronary angioplasty implant and graft
CPT/HCPCS: 93306